=== PATIENT | female | born 1965 | race Caucasian/White ===

== ENCOUNTER 2022-03-28 08:11 | Outpatient (CLI) | payer MEDICAID, SELFPAY ==
--- NOTE | 2022-03-28 08:15 | MR_ITS ---
Final Report Patient: MINOO LOJA Facility:?[facility] Patient ID:?[id number] Site Patient ID:?[id number]. Site :?[id number] Study:?MRI Spine Lumbar W/O-03/28/2022 9:08:16 AM Ordering Physician:Bj Hernandez Final Report: INDICATION: Lumbar radiculopathy. COMPARISON: None. TECHNIQUE: Sagittal T1, T2, and STIR sequences. Axial T1 and T2 weighted sequences. FINDINGS: Normal vertebral body alignment. No fractures. No vertebral body loss of height. No spondylolisthesis. No ligamentous injury. No suspicious osseous lesions. Normal conus terminates at L1-2. T12-L1 L1-2: No spinal canal neural foraminal narrowing. L2-3: No spinal canal or neural foraminal narrowing. L3-4: Disc degeneration diffuse disc bulge. Central disc protrusion measures approximately 3 mm in short axis. Indentation of ventral thecal sac and mild narrowing of spinal canal. No neural foraminal narrowing. L4-5: Disc degeneration. Diffuse disc bulge. No narrowing of spinal canal. No neural foraminal narrowing. L5-S1: Disc degeneration loss of disc height. Posterior disc herniation measures approximately 4 mm short axis. Superimposed left subarticular disc extrusion measuring approximately 5 mm in diameter with 7 mm of cephalad migration (see series 2, image 10). At the level the interspace, mild narrowing of spinal canal. The extruded disc impinges upon the traversing portion of the left L5 nerve root. No impingement of the traversing S1 nerve roots. Mild narrowing of bilateral foramina. Mild facet arthropathy. Degenerative changes of visualized SI joints. Normal paraspinal soft tissues. IMPRESSION: 1. Normal alignment. No fractures 2. At L3-4, disc degeneration and diffuse disc bulge. Central disc protrusion. Mild narrowing of the spinal canal. No neural foraminal narrowing. 3. At L5-S1, disc degeneration. Posterior disc herniation. Left subarticular disc extrusion with cephalad migration. Mild narrowing of spinal canal. Impingement of the traversing portions of the left L5 nerve root. Mild narrowing of bilateral neural foramina Dictated by Maulik Mills MD @ 03/28/2022 12:56:50 PM (Electronic Signature)
== END 2022-03-28 08:12 | disposition home or self-care (01) ==
LOC: MRI 08:12
PROVIDERS: PCP Family Medicine; Visit Provider Physical Medicine & Rehabilitation Pain Medicine
DX: M54.16 Radiculopathy, lumbar region (principal); M51.36 Other intervertebral disc degeneration, lumbar region; M51.37 Other intervertebral disc degeneration, lumbosacral region; M51.26 Other intervertebral disc displacement, lumbar region
CPT/HCPCS: 72148

== ENCOUNTER 2022-05-07 13:59 | Emergency (ER) | payer MEDICAID, SELFPAY ==
[2022-05-07 14:11] VITALS: BP 187/91; PULSE 85; RESP 18; TEMP 36.1; O2SAT 95; BMI 29.3
--- NOTE | 2022-05-07 14:30 | ED.CHESTPAIN ---
HPI - Chest Pain General Chief Complaint: Chest Pain Stated Complaint: Chest Pain Tightness Time Seen by Provider: 05/07/22 14:00 History of Present Illness HPI narrative: This 56-year-old female comes in reporting some left anterior parasternal chest discomfort that began last evening. She states that this pain is been constant since then and has occasional jabs of brief more intense pain lasting a few seconds. She does not report any nausea, vomiting, lightheadedness, shortness of breath, or diaphoresis. She does have low back pain and had an injection for this couple weeks ago. She has not been doing any real exertional activities but does not report any exertional chest pain on the LEs. She states that this pain in her chest is not reproducible when taking a deep breath, palpating this area, or with certain movements. She does have cardiac risk factors including diabetes, hyperlipidemia, and high blood pressure. Related Data Previous Rx's Medication Instructions Recorded pen needle, diabetic 32 gauge x #100 ea 04/10/22 (UltiCare Pen Needle) sitagliptin 100 mg tablet 100 mg PO QDAY #30 tabs 04/25/22 Allergies Allergy/AdvReac Type Severity Reaction Status Date / Time Sulfa (Sulfonamide Allergy Verified 05/07/22 14:11 Antibiotics) narcotics Allergy Uncoded 05/07/22 14:11 Review of Systems Status of ROS Reports: 10 or more systems reviewed and unremarkable except as noted in History and below Narrative Constitutional: No fevers, no weight gain or loss. Eyes: No discharge. No vision changes. HENT: No congestion, no sore throat, no ear pain. Cardiovascular: No palpitations. Chest discomfort as described above. Respiratory: No shortness of breath, no wheezes, no cough. Gastrointestinal: No abdominal pain, no vomiting, no diarrhea. Genitourinary: No dysuria, no hematuria. Musculoskeletal: Normal range of motion. Skin: No rashes, no pruritis. Neurological: No dizziness, weakness, sensory change, speech change. Endo/Heme/Allergies: No bruising or bleeding. No polydipsia. Pysch: no suicidality, no anxiety, no insomnia. All other systems reviewed and are negative. Exam Narrative Exam Narrative: Constitutional: Well-developed, well-nourished, no acute distress. HEENT: Normocephalic, atraumatic. Neck: Normal range of motion. Nontender. Supple. Heart: Regular. No murmurs. Normal rate. Intact distal pulses. Lungs: Clear to auscultation. Chest discomfort along the left border of the sternum which is not reproducible with palpation or deep breathing. No wheezes, rhonchi, or rales. Abdomen: Normal bowel sounds. Nontender. No rebound tenderness. Genitalia: Deferred. Back: No midline tenderness. Normal range of motion. Extremities: Normal range of motion. No injury. Skin: Intact. No rash. Warm. No erythema or pallor. Neurologic: No altered sensation. No weakness. Alert and oriented. Psychiatric: No suicidality. No anxiety or depression. No insomnia. Nursing notes and vitals signs are reviewed. Const Vital Signs, click to edit/add: Vital Signs - 24 hr 05/07/22 14:11 Temperature 97.0 F L Pulse Rate [Left Pulse Oximeter] 85 Respiratory Rate 18 Blood Pressure [Left Upper Arm] 187/91 H Pulse Oximetry 95 Oxygen Delivery Method Room Air Course Vital Signs Vital signs: Initial Vital Signs Temperature 97.0 F L 05/07/22 14:11 Temperature Source Temporal Artery Scan 05/07/22 14:11 Pulse Rate 85 05/07/22 14:11 Respiratory Rate 18 05/07/22 14:11 Blood Pressure 187/91 H 05/07/22 14:11 Blood Pressure Mean 123 05/07/22 14:11 Blood Pressure Position Sitting 05/07/22 14:11 Pulse Oximetry 95 05/07/22 14:11 Oxygen Delivery Method 05/07/22 14:11 Vital Signs Temperature 97.0 F L 05/07/22 14:11 Pulse Rate 85 05/07/22 14:11 Respiratory Rate 18 05/07/22 14:11 Blood Pressure 187/91 H 05/07/22 14:11 Pulse Oximetry 95 05/07/22 14:11 Oxygen Delivery Method 05/07/22 14:11 Temperature 97.0 F L 05/07/22 14:11 Pulse Rate 85 05/07/22 14:11 Respiratory Rate 18 05/07/22 14:11 Blood Pressure 187/91 H 05/07/22 14:11 Pulse Oximetry 95 05/07/22 14:11 Oxygen Delivery Method 05/07/22 14:11 MDM - Chest Pain MDM Narrative Medical decision making narrative: This patient comes in reporting chest discomfort as described above. She states that the pain began yesterday and is rather constant with some episodes of brief increases of pain. EKG today shows normal sinus rhythm without any sign of ST or T-wave abnormalities. Additionally her lab results returned with normal findings. Her troponin returns at 0. This is not likely a pain that is coming from her heart or lungs. More likely it is a chest wall pain and perhaps a costal chondritis as the pain is localized along the left sternal border. Lab Data Labs: Lab Results 05/07/22 05/07/22 05/07/22 Range/Units 14:30 14:46 14:46 WBC 8.57 (4.50-11.00) K/uL RBC 5.12 (4.00-5.20) m/uL Hgb 14.5 (12.0-16.0) gm/dL Hct 43.3 (33.0-51.0) % MCV 85 (80-100) fL MCH 28 (26-34) pg MCHC 34 (32-36) gm/dL RDW Coeff of Jovani 12.7 (11.5-15.5) % Plt Count 336 (140-440) K/uL Neut % (Auto) 49.8 (42.0-72.0) % Lymph % (Auto) 39.1 (20-44) % Titus % (Auto) 6.2 (0.0-11.0) % Eos % (Auto) 4.1 (0.0-7.0) % Baso % (Auto) 0.2 (0.0-3.0) % Neut # (Auto) 4.27 (1.7-7.0) K/uL Lymph # (Auto) 3.35 H (0.90-2.90) K/uL Titus # (Auto) 0.50 (0.00-0.90) K/UL Eos # (Auto) 0.35 (0.00-0.50) K/uL Baso # (Auto) 0.02 (0.00-0.30) K/uL Abs Immat Gran (auto) 0.05 (0.00-0.30) K/uL Sodium 140 (135-149) mmol/L Potassium 4.8 (3.6-5.1) mmol/L Chloride 103 (96-114) mmol/L Carbon Dioxide 29 (20-32) mmol/L BUN 6 L (7-30) mg/dL Creatinine 0.7 (0.5-1.5) mg/dL Estimated Creat Clear 68.52 Estimated GFR 102 ml/min Glucose 149 H (60-115) mg/dL Calcium 9.4 (8.4-10.6) mg/dL POC Troponin I 0.00 L (0.01-0.04) ng/ml ECG Data Attestation: I personally reviewed and interpreted this ECG as follows: Interpretation: Normal sinus rhythm. Rate is 82 beats per minute. There are no ST or T-wave abnormalities. Discharge Plan Discharge Clinical Impression: Costalchondritis Patient Disposition: Home, Self-Care Condition: Stable Instructions: Costochondritis (ED) Additional Instructions: Use [id number]-[id number] medicines as needed and directed. Follow up with MD or return if worsening. Prescriptions: No Action (DME) pen needle, diabetic [UltiCare Pen Needle] 32 gauge x 5/32 needle See Rx Instructions .Route Qty: 100 0RF Rx Instructions: Use Daily As directed sitagliptin 100 mg tablet 100 mg PO QDAY Qty: 30 0RF Rx Instructions: Needs appt. for further refills Follow Up/Referrals: Bryce Fallon MD [Primary Care Provider] - Stand Alone Forms: [employer] Info Instructions
[2022-05-07 14:53] LABS: Basophils Absolute Auto 0.02 K/uL (0.00-0.30); Basophils Percent Auto 0.2 % (0.0-3.0); Eosinophils Absolute Auto 0.35 K/uL (0.00-0.50); Eosinophils Percent Auto 4.1 % (0.0-7.0); Hematocrit 43.3 % (33.0-51.0); Hemoglobin* 14.5 gm/dL (12.0-16.0); Immature Granulocytes Abs Auto 0.05 K/uL (0.00-0.30); Lymphocytes Absolute Auto 3.35 K/uL (0.90-2.90); Lymphocytes Percent Auto 39.1 % (20-44); Mean Corpuscular HGB Conc 34 gm/dL (32-36); Mean Corpuscular Hemoglobin 28 pg (26-34); Mean Corpuscular Volume 85 fL (80-100); Monocytes Percent Auto 6.2 % (0.0-11.0); Neutrophils Absolute Auto 4.27 K/uL (1.7-7.0); Neutrophils Percent Auto 49.8 % (42.0-72.0); Platelet Count* 336 K/uL (140-440); RDW Coefficient of Variation % 12.7 % (11.5-15.5); Red Blood Count 5.12 m/uL (4.00-5.20); White Blood Count* 8.57 K/uL (4.50-11.00)
[2022-05-07 14:54] LABS: Slide Review Reflex No
[2022-05-07 15:09] LABS: Chloride* 103 mmol/L (96-114); Potassium* 4.8 mmol/L (3.6-5.1); Sodium* 140 mmol/L (135-149)
[2022-05-07 15:12] LABS: Blood Urea Nitrogen* 6 mg/dL (7-30); Calcium* 9.4 mg/dL (8.4-10.6); Carbon Dioxide* 29 mmol/L (20-32); Creatinine* 0.7 mg/dL (0.5-1.5); Est. Creatinine Clearance* 68.52; Estimated Glomerular Filt Rate 102 ml/min; Glucose* 149 mg/dL (60-115)
[2022-05-07 15:45] VITALS: BP 171/92; PULSE 79; RESP 18; O2SAT 94
== END 2022-05-07 15:45 | disposition home or self-care (01) ==
PROVIDERS: Emergency Provider Emergency Medicine Emergency Medical Services; PCP Family Medicine
DX: M94.0 Chondrocostal junction syndrome [Tietze] (principal)
CPT/HCPCS: 36415; 80048; 84484; 85025; 93005; 99284

== ENCOUNTER 2022-06-13 08:41 | Outpatient (CLI) | payer MEDICAID, SELFPAY ==
[2022-06-13 15:31] LABS: Cholesterol* 178 mg/dL (90-199)
[2022-06-13 15:32] LABS: HDL Cholesterol* 46 mg/dL (>=50); LDL Cholesterol Calculated 85 mg/dL (<100); Triglycerides* 234 mg/dL (40-149)
== END 2022-06-13 08:42 | disposition home or self-care (01) ==
LOC: FBOREF 08:42
PROVIDERS: PCP Family Medicine; Visit Provider Family Medicine
DX: E78.5 Hyperlipidemia, unspecified (principal)
CPT/HCPCS: 80061

== ENCOUNTER 2022-07-17 08:15 | Outpatient (RCR) | payer MEDICAID, SELFPAY | END 2022-07-17 12:03 | disposition home or self-care (01) | PROVIDERS: PCP Family Medicine; Visit Provider Physical Medicine & Rehabilitation Pain Medicine | DX: M54.50 Low back pain, unspecified (principal); Z51.89 Encounter for other specified aftercare | CPT/HCPCS: 97110; 97140; 97162 ==

== ENCOUNTER 2022-07-21 14:12 | Outpatient (CLI) | payer MEDICAID, SELFPAY ==
--- NOTE | 2022-07-21 14:30 | CRLHL7_ITS ---
For Patients: As a result of the Century Cures Act, medical imaging exams and procedure reports are released immediately into your electronic medical record. You may view this report before your referring provider. If you have questions, please contact your health care provider. INDICATION: Right facial numbness. Migraine headaches. TECHNIQUE: Multiplanar multisequence noncontrast MR images acquired through the brain. COMPARISON: None. FINDINGS: The ventricles and sulci are within normal limits for patient age. No mass effect or midline shift. Scattered and patchy T2 FLAIR hyperintensities in the supratentorial white matter and dawson, most typical for sequelae of care-ie-bbsnlnhs chronic microvascular ischemic changes. No intracranial hemorrhage or pathologic extra-axial fluid collection. No diffusion restriction to suggest acute infarction. The major arterial flow voids of the skullbase are preserved. The globes are symmetric. Very small right maxillary sinus retention cyst or polyp. Severe opacification of the left sphenoid sinus. Trace right mastoid fluid. IMPRESSION: 1. No acute infarction, mass effect, or intracranial hemorrhage. 2. Pjnf-zk-fgajuqxi chronic microvascular ischemic changes, greater than expected for patient age. 3. Severe opacification of the left sphenoid sinus. Dictated by Angel Adams MD @ 07/21/2022 5:49:24 PM (Electronically Signed)
== END 2022-07-21 14:13 | disposition home or self-care (01) ==
PROVIDERS: PCP Family Medicine; Visit Provider Physician Assistant Medical
DX: G43.909 Migraine, unspecified, not intractable, without status migrainosus (principal); I67.82 Cerebral ischemia; J32.3 Chronic sphenoidal sinusitis; R20.0 Anesthesia of skin
CPT/HCPCS: 70551

== ENCOUNTER 2022-09-07 08:29 | Outpatient (CLI) | payer MEDICAID, SELFPAY ==
--- NOTE | 2022-09-07 08:45 | CRLHL7_ITS ---
For Patients: As a result of the Century Cures Act, medical imaging exams and procedure reports are released immediately into your electronic medical record. You may view this report before your referring provider. If you have questions, please contact your health care provider. BILATERAL SCREENING MAMMOGRAM WITH COMPUTER-AIDED DETECTION AND TOMOSYNTHESIS TECHNIQUE: CC and MLO views were obtained. These mammographic images have been obtained using full-field digital technique. These mammographic images were interpreted with the benefit of computer-aided detection. Breast Tomosynthesis was used in this interpretation. COMPARISON FILM: 04/09/17, 05/26/16, 03/04/13. FINDINGS: There are scattered areas of fibroglandular density IMPRESSION: There is no radiographic evidence for malignancy. ASSESSMENT: BI-RADS Category 1: Negative RECOMMENDATION: Routine screening mammogram in 1 year. A lay language report of this examination will be provided to the patient. Bryce Waggoner M.D. Diagnostic Radiologist [email or web address] VEENA/amelia be/Dictated by: Bryce Waggoner MD @ 09/07/2022 10:15:00 AM (Electronically Signed)
== END 2022-09-07 08:30 | disposition home or self-care (01) ==
PROVIDERS: PCP Family Medicine; Visit Provider Family Medicine
DX: Z12.31 Encounter for screening mammogram for malignant neoplasm of breast (principal)
CPT/HCPCS: 77063; 77067

== ENCOUNTER 2023-01-31 13:54 | Emergency (ER) | payer MEDICAID, SELFPAY ==
[2023-01-31 14:03] VITALS: BP 181/106; PULSE 108; RESP 18; TEMP 36.4; O2SAT 98; BMI 28.5
--- NOTE | 2023-01-31 15:02 | CRLHL7_ITS ---
For Patients: As a result of the Century Cures Act, medical imaging exams and procedure reports are released immediately into your electronic medical record. You may view this report before your referring provider. If you have questions, please contact your health care provider. INDICATION: Chest pain. TECHNIQUE: Chest 2 views. COMPARISON: Chest radiograph 12/26/2017. FINDINGS: No focal consolidation, pleural effusion, or pneumothorax. Normal heart size and pulmonary vascularity. The bones are unremarkable. IMPRESSION: No acute cardiopulmonary findings. Dictated by Lucita Willis MD @ 01/31/2023 4:04:48 PM (Electronically Signed)
--- NOTE | 2023-01-31 15:08 | ED_ITS ---
HPI - General Adult General Chief complaint: Back Injury/Pain Stated complaint: Chest Pain Time Seen by Provider: 01/31/23 13:56 History of Present Illness HPI narrative: This 57-year-old female comes in reporting pain in the lower chest and upper abdomen that began this morning. She states that it is minimal while at rest but it becomes very intense with certain movements, deep breath, or pressing along these areas. She states that the pain seems to radiate around the area of her bra strap around to her back. She does not report any nausea, vomiting, lightheadedness, shortness of breath, or diaphoresis. She does not report any recent injury event or strenuous activity. Clear to the pain is reproducible. Related Data Home Medications Medication Instructions Recorded Confirmed aspirin 81 mg tablet,delayed 81 mg PO QDAY 05/08/22 01/12/23 release fluticasone propionate 50 1 spray intranasal QDAY 05/08/22 01/12/23 mcg/actuation nasal spray,suspension (Flonase Allergy Relief) Previous Rx's Medication Instructions Recorded atorvastatin 10 mg tablet 10 mg PO QDAY #90 tabs 06/13/22 bupropion HCl 300 mg 24 hr tablet, 300 mg PO QAM #90 tabs 06/13/22 extended release metformin 500 mg tablet,extended 1,000 mg (2 x 500 mg) PO BID #360 06/13/22 release 24 hr tabs sitagliptin phosphate 100 mg tablet 100 mg PO QDAY #90 tabs 06/13/22 pen needle, diabetic 32 gauge x #100 ea 08/24/22 5/32 (UltiCare Pen Needle) gabapentin 300 mg capsule 300 mg PO BID #180 caps 09/19/22 duloxetine 60 mg capsule,delayed 60 mg PO QDAY #90 caps 01/12/23 release insulin detemir U-100 100 unit/mL 35 unit (0.35 mL) subcut QHS #15 mL 01/12/23 (3 mL) subcutaneous pen (Levemir FlexPen) lorazepam 1 mg tablet 1 mg PO BID PRN anxiety #30 tabs 01/12/23 cyclobenzaprine 10 mg tablet 10 mg PO TID #15 tabs 01/31/23 ketorolac 10 mg tablet 10 mg PO Q8H 5 days #15 tabs 01/31/23 methylprednisolone 4 mg tablets in See Rx Instructions PO .COMPLEX 01/31/23 a dose pack (Medrol (Dwayne)) #21 ea Allergies Allergy/AdvReac Type Severity Reaction Status Date / Time codeine Allergy Intermediate Itchy, Verified 01/12/23 09:37 diaphoretic hydromorphone Allergy Intermediate Vomiting Verified 01/12/23 09:37 and itching oxycodone Allergy Intermediate Itchy, Verified 01/12/23 09:37 diaphoretic hydrocodone Allergy Unknown Itchiness Verified 01/12/23 09:37 meclizine Allergy Unknown Verified 01/12/23 09:37 morphine Allergy Unknown Itchy, Verified 01/12/23 09:37 diaphoretic Sulfa (Sulfonamide Allergy Verified 01/12/23 09:37 Antibiotics) narcotics Allergy Uncoded 01/12/23 09:37 Review of Systems Status of ROS: Reports: 10 or more systems reviewed and unremarkable except as noted in History and below Narrative: Constitutional: No fevers, no weight gain or loss. Eyes: No discharge. No vision changes. HENT: No congestion, no sore throat, no ear pain. Cardiovascular: No palpitations. Respiratory: No shortness of breath, no wheezes, no cough. Gastrointestinal: Upper epigastric abdominal pain, no vomiting, no diarrhea. Genitourinary: No dysuria, no hematuria. Musculoskeletal: Normal range of motion. Skin: No rashes, no pruritis. Neurological: No dizziness, weakness, sensory change, speech change. Endo/Heme/Allergies: No bruising or bleeding. No polydipsia. Pysch: no suicidality, no anxiety, no insomnia. All other systems reviewed and are negative. [facility] Medical History (Updated 01/31/23 @ 16:35 by Joey England MD) HTN (hypertension) ?I10 - Essential (primary) hypertension (ICD-10) Anxiety and depression ?F41.9 - Anxiety disorder, unspecified (ICD-10) ?F32.A - Depression, unspecified (ICD-10) Vitamin D deficiency ?E55.9 - Vitamin D deficiency, unspecified (ICD-10) Postmenopausal atrophic vaginitis ?N95.2 - Postmenopausal atrophic vaginitis (ICD-10) Meniere's disease ?H81.09 - Meniere's disease, unspecified ear (ICD-10) Hyperlipidemia ?E78.5 - Hyperlipidemia, unspecified (ICD-10) 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 (11/23/12) ?M51.26 - Other intervertebral disc displacement, lumbar region (ICD-10) Diabetic neuropathy ?E11.40 - Type 2 diabetes mellitus with diabetic neuropathy, unspecified (ICD-10) Clostridioides difficile diarrhea ?A04.72 - Enterocolitis due to Clostridium difficile, not specified as recurrent (ICD-10) Amaurosis fugax of right eye ?G45.3 - Amaurosis fugax (ICD-10) Adenomatous polyp of colon ?D12.6 - Benign neoplasm of colon, unspecified (ICD-10) Type 2 diabetes mellitus ?E11.9 - Type 2 diabetes mellitus without complications (ICD-10) Surgical History (Updated 07/25/22 @ 21:58 by Bryce Fallon MD) History of total hysterectomy with bilateral salpingo-oophorectomy (BSO) (2011) ?Z90.710 - Acquired absence of both cervix and uterus (ICD-10) ?Z90.722 - Acquired absence of ovaries, bilateral (ICD-10) ?Z90.79 - Acquired absence of other genital organ(s) (ICD-10) History of total abdominal hysterectomy and bilateral salpingo-oophorectomy ?Z90.710 - Acquired absence of both cervix and uterus (ICD-10) ?Z90.722 - Acquired absence of ovaries, bilateral (ICD-10) ?Z90.79 - Acquired absence of other genital organ(s) (ICD-10) History of third molar tooth extraction ?K08.409 - Partial loss of teeth, unspecified cause, unspecified class (ICD- 10) History of bilateral breast reduction surgery ?Z98.890 - Other specified postprocedural states (ICD-10) Family History (Updated 05/15/22 @ 12:46 by Tanesha Sanders) Sister Breast cancer, Onset Age: 66 Depression Multiple myeloma Family history of stroke or transient ischemic attack in sister Mother Depression Alcoholism Oral cancer Father Alcoholism Multiple myeloma Brother Colon cancer, Onset Age: 48 Melanoma Other Maternal family history of seizure disorder Social History (Updated 05/15/22 @ 12:46 by Tanesha aSnders) Narrative: Exercise involving walking- 11,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 , 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 HEENT: Normocephalic, atraumatic. Neck: Normal range of motion. Nontender. Supple. Heart: Regular. No murmurs. Normal rate. Intact distal pulses. Chest: Patient manifests distinct pain when palpating along the lower ribs bilaterally. Lungs: Clear to auscultation. No chest discomfort. No wheezes, rhonchi, or rales. Abdomen: Normal bowel sounds. Nontender. No rebound tenderness. Genitalia: Deferred. Back: No midline tenderness. Normal range of motion. Extremities: Normal range of motion. No injury. Skin: Intact. No rash. Warm. No erythema or pallor. Neurologic: No altered sensation. No weakness. Alert and oriented. Psychiatric: No suicidality. No anxiety or depression. No insomnia. Nursing notes and vitals signs are reviewed. Const: Vital Signs, click to edit/add: Vital Signs - 24 hr 01/31/23 14:03 01/31/23 15:14 Temperature 97.6 F Pulse Rate [Pulse Oximeter] 108 H 105 H Respiratory Rate 18 16 Blood Pressure [Ri ght Upper Arm] 181/106 H 165/100 H Pulse Oximetry 98 96 Oxygen Delivery Me thod Room Air Room Air Course Vital Signs Vital signs: Initial Vital Signs Temperature 97.6 F 01/31/23 14:03 Temperature Source Temporal Artery Scan 01/31/23 14:03 Pulse Rate 108 H 01/31/23 14:03 Respiratory Rate 18 01/31/23 14:03 Blood Pressure 181/106 H 01/31/23 14:03 Blood Pressure Mean 131 H 01/31/23 14:03 Pulse Oximetry 98 01/31/23 14:03 Oxygen Delivery Method Room Air 01/31/23 14:03 Vital Signs Temperature 97.6 F 01/31/23 14:03 Pulse Rate 108 H 01/31/23 14:03 Respiratory Rate 18 01/31/23 14:03 Blood Pressure 181/106 H 01/31/23 14:03 Pulse Oximetry 98 01/31/23 14:03 Oxygen Delivery Method Room Air 01/31/23 14:03 Temperature 97.6 F 01/31/23 14:03 Pulse Rate 105 H 01/31/23 15:14 Respiratory Rate 16 01/31/23 15:14 Blood Pressure 165/100 H 01/31/23 15:14 Pulse Oximetry 96 01/31/23 15:14 Oxygen Delivery Method Room Air 01/31/23 15:14 Medical Decision Making MDM Narrative Medical decision making narrative: This patient comes in with pain in the upper abdomen and lower chest extending around to the back. This pain is easily reproducible with certain movements, deep breaths, or palpating in this area. The back pain is always involved with her discomfort in her lower chest and upper abdomen. Chest x-ray shows no acute findings. Lab results also are reassuring. I did use bedside ultrasound also to evaluate her gallbladder and aorta. The quality of the images were rather poor but what was visualized appeared normal. This patient's symptoms are reproducible in suggesting musculoskeletal or a nerve impingement etiology. She is okay to be discharged home. She did received prescriptions for Toradol, Flexeril, and Medrol Dosepak. She understands that the steroid will cause her blood glucose to elevate temporarily. Lab Data Labs: Lab Results 01/31/23 Range/Units 15:19 WBC 10.35 (4.50-11.00) K/uL RBC 4.75 (4.00-5.20) m/uL Hgb 13.4 (12.0-16.0) gm/dL Hct 40.6 (33.0-51.0) % MCV 86 (80-100) fL MCH 28 (26-34) pg MCHC 33 (32-36) gm/dL RDW Coeff of Jovani 12.8 (11.5-15.5) % Plt Count 338 (140-440) K/uL Neut % (Auto) 45.9 (42.0-72.0) % Lymph % (Auto) 42.9 (20-44) % Bond % (Auto) 6.5 (0.0-11.0) % Eos % (Auto) 4.3 (0.0-7.0) % Baso % (Auto) 0.3 (0.0-3.0) % Neut # (Auto) 4.75 (1.7-7.0) K/uL Lymph # (Auto) 4.44 H (0.90-2.90) K/uL Bond # (Auto) 0.70 (0.00-0.90) K/UL Eos # (Auto) 0.45 (0.00-0.50) K/uL Baso # (Auto) 0.03 (0.00-0.30) K/uL Sodium 138 (135-149) mmol/L Potassium 4.3 (3.6-5.1) mmol/L Chloride 99 (96-114) mmol/L Carbon Dioxide 30 (20-32) mmol/L BUN 11 (7-30) mg/dL Creatinine 0.8 (0.5-1.5) mg/dL Estimated Creat Clear 59.25 Estimated GFR 86 ml/min Glucose 176 H (60-115) mg/dL Calcium 9.6 (8.4-10.6) mg/dL POC Troponin I 0.00 L (0.01-0.04) ng/ml Imaging Data Chest x-ray: Radiologist's impression: No acute cardiopulmonary findings. ECG Data Attestation: I personally reviewed and interpreted this ECG as follows: Interpretation: Normal sinus rhythm. Rate is 102 beats per minute. There are no ST or T-wave abnormalities. Discharge Plan Discharge Clinical Impression: Acute chest wall pain, Back pain Patient Disposition: Home, Self-Care Condition: Unchanged Additional Instructions: Take medication as needed and indicated. Increase activity as tolerated. Follow up with MD return if worsening. Prescriptions: New cyclobenzaprine 10 mg tablet 10 mg PO TID Qty: 15 0RF ketorolac 10 mg tablet 10 mg PO Q8H 5 Days Qty: 15 0RF methylprednisolone [Medrol (Dwayne)] 4 mg tablets,dose pack See Rx Instructions .ROUTE .COMPLEX Qty: 21 0RF Rx Instructions: orally per package directions No Action atorvastatin 10 mg tablet 10 mg PO QDAY Qty: 90 3RF Rx Instructions: Fill when needed bupropion HCl 300 mg tablet extended release 24 hr 300 mg PO QAM Qty: 90 3RF Rx Instructions: Fill when needed sitagliptin phosphate 100 mg tablet 100 mg PO QDAY Qty: 90 3RF Rx Instructions: Fill when needed metformin 500 mg tablet extended release 24 hr 1,000 mg PO BID Qty: 360 3RF Rx Instructions: Fill when needed lorazepam 1 mg tablet 1 mg PO BID PRN (Reason: anxiety) Qty: 30 0RF duloxetine 60 mg capsule,delayed release(DR/EC) 60 mg PO QDAY Qty: 90 1RF Levemir FlexPen 100 unit/mL (3 mL) insulin pen 35 unit subcut QHS Qty: 15 1RF aspirin 81 mg tablet,delayed release (DR/EC) 81 mg PO QDAY fluticasone propionate [Flonase Allergy Relief] 50 mcg/actuation spray,suspension 1 spray intranasal QDAY Rx Instructions: administer into each nostril (DME) pen needle, diabetic [UltiCare Pen Needle] 32 gauge x 5/32 needle See Rx Instructions .Route Qty: 100 5RF Rx Instructions: Use Daily As directed gabapentin 300 mg capsule 300 mg PO BID Qty: 180 2RF Follow Up/Referrals: Bryce Fallon MD [Primary Care Provider] - Stand Alone Forms: [facility] Info Instructions Procedures Ultrasound Biliary exam #1: Anatomical areas examined: gallbladder, long and short axis Indications: RUQ/epigastric pain Exam type: limited abdominal ultrasound; RUQ Description/Findings: Poorly visualized Gall bladder. What it seen appears normal. Normal aorta - no aneurysm.
[2023-01-31 15:14] VITALS: BP 165/100; PULSE 105; RESP 16; O2SAT 96
[2023-01-31 15:29] LABS: Basophils Absolute Auto 0.03 K/uL (0.00-0.30); Basophils Percent Auto 0.3 % (0.0-3.0); Eosinophils Absolute Auto 0.45 K/uL (0.00-0.50); Eosinophils Percent Auto 4.3 % (0.0-7.0); Hematocrit 40.6 % (33.0-51.0); Hemoglobin* 13.4 gm/dL (12.0-16.0); Immature Granulocytes Abs Auto 0.01 K/uL (0.00-0.30); Immature Granulocytes Pct Auto 0.1 %; Lymphocytes Absolute Auto 4.44 K/uL (0.90-2.90); Lymphocytes Percent Auto 42.9 % (20-44); Mean Corpuscular HGB Conc 33 gm/dL (32-36); Mean Corpuscular Hemoglobin 28 pg (26-34); Mean Corpuscular Volume 86 fL (80-100); Monocytes Percent Auto 6.5 % (0.0-11.0); Neutrophils Absolute Auto 4.75 K/uL (1.7-7.0); Neutrophils Percent Auto 45.9 % (42.0-72.0); Platelet Count* 338 K/uL (140-440); RDW Coefficient of Variation % 12.8 % (11.5-15.5); Red Blood Count 4.75 m/uL (4.00-5.20); White Blood Count* 10.35 K/uL (4.50-11.00)
[2023-01-31 15:43] LABS: Chloride* 99 mmol/L (96-114); Potassium* 4.3 mmol/L (3.6-5.1); Sodium* 138 mmol/L (135-149)
[2023-01-31 15:46] LABS: Blood Urea Nitrogen* 11 mg/dL (7-30); Carbon Dioxide* 30 mmol/L (20-32); Creatinine* 0.8 mg/dL (0.5-1.5); Est. Creatinine Clearance* 59.25; Estimated Glomerular Filt Rate 86 ml/min; Glucose* 176 mg/dL (60-115)
[2023-01-31 15:47] LABS: Calcium* 9.6 mg/dL (8.4-10.6); Slide Review Reflex No
[2023-01-31] MEDS: KETOROLAC 10 MG TABLET PO (16:37)
== END 2023-01-31 16:45 | disposition home or self-care (01) ==
PROVIDERS: Emergency Provider Emergency Medicine Emergency Medical Services; PCP Family Medicine
DX: R07.89 Other chest pain (principal); M54.9 Dorsalgia, unspecified
CPT/HCPCS: 36415; 71046; 80048; 84484; 85025; 93005; 99284; 99285; A9270

== ENCOUNTER 2023-02-08 14:45 | Emergency (ER) | payer MEDICAID, SELFPAY ==
[2023-02-08] VITALS (21 sets, daily range): BP systolic 146–172; BP diastolic 83–96; PULSE 98–120; RESP 16–20; TEMP 36.1; O2SAT 94–98; BMI 28.3
--- NOTE | 2023-02-08 16:14 | ED.CHESTPAIN ---
HPI - Chest Pain General Time Seen by Provider: 16:14 Date Seen: 02/08/23 Chief Complaint: Chest Pain Stated Complaint: Chest/back pain, dizzy Time Seen by Provider: 02/08/23 16:14 Source: patient, RN notes reviewed and old records reviewed Mode of arrival: ambulatory Limitations: no limitations History of Present Illness HPI narrative: Janet is a very pleasant 57-year-old female with history of type 2 diabetes, hyperlipidemia who notes ongoing chest abdomen and back pain for approximately 2 weeks. Patient notes that she has had intermittent chest and back pain since having COVID the 2nd week of November. However proximally 2 weeks ago this become much more severe. She describes the pain substernal that will radiate to her back and down into her left upper quadrant. She notes that it is been fairly persistent and had been lessening but suddenly increased today. She was reminded that she was supposed to follow-up with Dr. Fallon but his clinic center back to the emergency room. She notes that she has a lot of pressure between her shoulder blades in this is definitely worsened with movement. She denies any fever or chills or nausea at this time. She does get occasional shortness of breath and it does not seem to be strictly related to activity. She notes no unusual cough she does note lower extremity leg pain but she is showing me that this is actually the front of her shins. She denies any calf tenderness or history of DVT. She notes that she thought this was neuropathy and it has been present since she had COVID in November. Patient did see Dr. England 1 week ago and at that time chest x-ray was reassuring. She was placed on tramadol and Flexeril. She notes that she has been constipated from those medications. Patient does have a history of autoimmune illness in family with mom and 2 sisters with a history of rheumatoid arthritis. Patient also notes new diagnosis of gout for herself after having a swollen painful finger a few months ago. Related Data Home Medications Medication Instructions Recorded Confirmed aspirin 81 mg tablet,delayed 81 mg PO QDAY 05/08/22 02/08/23 release fluticasone propionate 50 1 spray intranasal QDAY 05/08/22 02/08/23 mcg/actuation nasal spray,suspension (Flonase Allergy Relief) Previous Rx's Medication Instructions Recorded atorvastatin 10 mg tablet 10 mg PO QDAY #90 tabs 06/13/22 bupropion HCl 300 mg 24 hr tablet, 300 mg PO QAM #90 tabs 06/13/22 extended release metformin 500 mg tablet,extended 1,000 mg (2 x 500 mg) PO BID #360 06/13/22 release 24 hr tabs sitagliptin phosphate 100 mg tablet 100 mg PO QDAY #90 tabs 06/13/22 pen needle, diabetic 32 gauge x #100 ea 08/24/22 (UltiCare Pen Needle) gabapentin 300 mg capsule 300 mg PO BID #180 caps 09/19/22 duloxetine 60 mg capsule,delayed 60 mg PO QDAY #90 caps 01/12/23 release insulin detemir U-100 100 unit/mL 35 unit (0.35 mL) subcut QHS #15 mL 01/12/23 (3 mL) subcutaneous pen (Levemir FlexPen) lorazepam 1 mg tablet 1 mg PO BID PRN anxiety #30 tabs 01/12/23 cyclobenzaprine 10 mg tablet 10 mg PO TID #15 tabs 01/31/23 ketorolac 10 mg tablet 10 mg PO Q8H 5 days #15 tabs 01/31/23 Allergies Allergy/AdvReac Type Severity Reaction Status Date / Time codeine Allergy Intermediate Itchy, Verified 02/08/23 15:08 diaphoretic hydromorphone Allergy Intermediate Vomiting Verified 02/08/23 15:08 and itching oxycodone Allergy Intermediate Itchy, Verified 02/08/23 15:08 diaphoretic hydrocodone Allergy Unknown Itchiness Verified 02/08/23 15:08 meclizine Allergy Unknown Verified 02/08/23 15:08 morphine Allergy Unknown Itchy, Verified 02/08/23 15:08 diaphoretic Sulfa (Sulfonamide Allergy Verified 02/08/23 15:08 Antibiotics) narcotics Allergy Uncoded 01/12/23 09:37 Review of Systems Status of ROS Reports: 10 or more systems reviewed and unremarkable except as noted in History and below Const Denies: fever or chills Eyes Denies: change in vision ENMT Denies: throat pain, neck pain or difficulty swallowing (Eating and drinking without difficulty) Cardio Reports: chest pain and shortness of breath with exertion (Random episodes); Denies: palpitations, swelling of feet/ankles or lightheadedness Resp Reports: shortness of breath (Random episodes); Denies: cough GI Reports: abdominal pain and constipation; Denies: nausea, vomiting, diarrhea or difficulty swallowing (Eating and drinking without difficulty) Denies: painful urination or urinary frequency Musculo Reports: back pain and extremity pain; Denies: neck pain or extremity swelling Integ/Breast Denies: rash or itching Neuro Denies: headache, numbness in extremities or weakness in extremities Psych Reports: anxiety PFSH PFSH Medical History (Updated 02/08/23 @ 21:11 by Ladonna Villarreal MD) Type 2 diabetes mellitus, with long-term current use of insulin ?E11.9 - Type 2 diabetes mellitus without complications (ICD-10) ?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 (ICD-10) Mixed hyperlipidemia ?E78.2 - Mixed hyperlipidemia (ICD-10) Primary hypertension ?I10 - Essential (primary) hypertension (ICD-10) Anxiety and depression ?F41.9 - Anxiety disorder, unspecified (ICD-10) ?F32.A - Depression, unspecified (ICD-10) Vitamin D deficiency ?E55.9 - Vitamin D deficiency, unspecified (ICD-10) Postmenopausal atrophic vaginitis ?N95.2 - Postmenopausal atrophic vaginitis (ICD-10) Meniere's disease ?H81.09 - Meniere's disease, unspecified ear (ICD-10) 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 (11/23/12) ?M51.26 - Other intervertebral disc displacement, lumbar region (ICD-10) Diabetic neuropathy ?E11.40 - Type 2 diabetes mellitus with diabetic neuropathy, unspecified (ICD-10) Clostridioides difficile diarrhea ?A04.72 - Enterocolitis due to Clostridium difficile, not specified as recurrent (ICD-10) Amaurosis fugax of right eye ?G45.3 - Amaurosis fugax (ICD-10) Adenomatous polyp of colon ?D12.6 - Benign neoplasm of colon, unspecified (ICD-10) Surgical History (Updated 02/04/23 @ 11:52 by Bryce Fallon MD) History of total hysterectomy with bilateral salpingo-oophorectomy (BSO) (2011) ?Z90.710 - Acquired absence of both cervix and uterus (ICD-10) ?Z90.722 - Acquired absence of ovaries, bilateral (ICD-10) ?Z90.79 - Acquired absence of other genital organ(s) (ICD-10) History of third molar tooth extraction ?K08.409 - Partial loss of teeth, unspecified cause, unspecified class (ICD-10) History of bilateral breast reduction surgery ?Z98.890 - Other specified postprocedural states (ICD-10) Family History (Updated 05/15/22 @ 12:46 by Tanesha Sanders) Sister Breast cancer, Onset Age: 66 Depression Multiple myeloma Family history of stroke or transient ischemic attack in sister Mother Depression Alcoholism Oral cancer Father Alcoholism Multiple myeloma Brother Colon cancer, Onset Age: 48 Melanoma Other Maternal family history of seizure disorder Social History (Updated 05/15/22 @ 12:46 by Tanesha Sanders) Narrative: Exercise involving walking- 11,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 This does not appear to be in any acute distress but while she is here she suddenly notes that she has increasing right lower sided back pain. Her EOM is full pupils are equal round reactive. His neck is supple. Speech is normal. Heart with a mildly tachycardic rate in the 100s for me. This is regular however. Lungs are clear in all lung eli. Abdomen is soft no significant tenderness. I cannot recreate discomfort as I palpate over her sternum anterior chest. She has no pain with palpation down thoracic or lumbar spine. No CVA tenderness with percussion. She is moving all of her extremities. Patient has no calf tenderness with palpation or with dorsiflexion. Mild pain over the upper anterior shins. Const Vital Signs, click to edit/add: Vital Signs - 24 hr 02/08/23 15:01 02/08/23 16:30 02/08/23 17:35 Temperature 96.9 F L Pulse Rate Pulse Rate [Left Pulse Oximeter] 120 H 111 H 120 H Respiratory Rate 16 16 16 Blood Pressure Blood Pressure [Right Upper Arm] 149/90 H 146/91 H 151/83 H Pulse Oximetry 97 96 96 Oxygen Delivery Method Room Air 02/08/23 18:00 02/08/23 18:30 02/08/23 19:00 Temperature Pulse Rate Pulse Rate [Left Pulse Oximeter] 111 H 112 H 113 H Respiratory Rate 16 16 16 Blood Pressure Blood Pressure [Right Upper Arm] 151/88 H 149/96 H 153/89 H Pulse Oximetry 96 95 95 Oxygen Delivery Method 02/08/23 19:30 02/08/23 19:35 02/08/23 19:36 Temperature Pulse Rate 105 H 107 H Pulse Rate [Left Pulse Oximeter] 109 H Respiratory Rate 16 Blood Pressure 161/92 H Blood Pressure [Right Upper Arm] 161/92 H Pulse Oximetry 96 96 95 Oxygen Delivery Method 02/08/23 19:45 02/08/23 20:00 02/08/23 20:01 Temperature Pulse Rate 108 H 117 H 116 H Pulse Rate [Left Pulse Oximeter] Respiratory Rate Blood Pressure 172/86 H Blood Pressure [Right Upper Arm] Pulse Oximetry 97 95 97 Oxygen Delivery Method 02/08/23 20:02 02/08/23 20:15 02/08/23 20:30 Temperature Pulse Rate 116 H 111 H 107 H Pulse Rate [Left Pulse Oximeter] Respiratory Rate Blood Pressure Blood Pressure [Right Upper Arm] Pulse Oximetry 96 94 94 Oxygen Delivery Method 02/08/23 20:31 02/08/23 20:45 02/08/23 21:00 Temperature Pulse Rate 107 H 103 H 102 H Pulse Rate [Left Pulse Oximeter] Respiratory Rate Blood Pressure 162/85 H Blood Pressure [Right Upper Arm] Pulse Oximetry 94 94 96 Oxygen Delivery Method 02/08/23 21:01 02/08/23 21:15 02/08/23 21:25 Temperature 97 F L Pulse Rate 104 H 102 H 98 Pulse Rate [Left Pulse Oximeter] Respiratory Rate 20 Blood Pressure 159/89 H 152/89 H Blood Pressure [Right Upper Arm] Pulse Oximetry 96 95 98 Oxygen Delivery Method Documenting provider has reviewed patient's vital signs: yes Course Course Hospital Course: Differential diagnosis includes but is not limited to musculoskeletal pain, PE, aortic dissection, acute coronary event, biliary colic. At this time will order PE study of the chest with abdominal CT with contrast. Will also recommend a troponin, EKG, cardiac catheterization technician, IV placement, CBC, comprehensive, urinalysis. Reevaluation(s) Reevaluation #1: Patient noted to have persisting discomfort. Is tachycardic in the [address] returns with no abnormality except for thyroid nodule. Will add TSH to patient workup. Will try Toradol 15 mg IV and a GI cocktail at this time as patient does describe some acid in her mouth earlier today. Reevaluation #2: Patient felt that the GI cocktail made her worse. She says she could feel it go through her stomach and into her intestines. She does not think the Toradol helped. With fluids her heart rate is much improved and is now 100 or below. Will treat her with omeprazole 40 mg p.o. at this time. Vital Signs Vital signs: Initial Vital Signs Respiratory Effort Normal 02/08/23 15:00 Respiratory Depth Normal 02/08/23 15:00 Respiratory Pattern Normal 02/08/23 15:00 Vital Signs Temperature 96.9 F L 02/08/23 15:01 Pulse Rate 120 H 02/08/23 15:01 Respiratory Rate 16 02/08/23 15:01 Blood Pressure 149/90 H 02/08/23 15:01 Pulse Oximetry 97 02/08/23 15:01 Oxygen Delivery Method Room Air 02/08/23 15:01 Temperature 97 F L 02/08/23 21:25 Pulse Rate 98 02/08/23 21:25 Respiratory Rate 20 02/08/23 21:25 Blood Pressure 152/89 H 02/08/23 21:25 Pulse Oximetry 98 02/08/23 21:25 Oxygen Delivery Method Room Air 02/08/23 15:01 MDM - Chest Pain MDM Narrative Medical decision making narrative: 1. Atypical chest pain-2 sets of cardiac enzymes are negative and EKG is reassuring. White count slightly elevated but no evidence of infection. Patient is 2 months post COVID with symptoms of that time body aches kidney pain and congestion. Patient initially tachycardic but now below 100 with 1 L of normal saline. I suspect that her discomfort is likely GI in nature although CT did not show any abnormalities. She does describe some acid taste type into her mouth today. She actually felt worse after GI cocktail and described how she could feel it going through her system and small intestine. This may be GERD and so will treat with omeprazole this evening and for the next [address] of the chest and abdomen did not show any acute abnormalities. Patient notes that tramadol did help her and I will give her another few tablets of this medication 50 mg p.o. Q 8 hours p.r.n. 15. Via [facility] meds. She will need to follow up with her primary MD for any further pain medications. 2. Thyroid nodule-patient is informed of this. TSH is normal. Will need to follow-up for outpatient ultrasound to be scheduled. 2. Disposition-home at this time. No evidence of PE, acute coronary syndrome, aortic dissection, bowel obstruction on CT. Follow-up with primary MD for further management. Return to the emergency room for worsening symptoms. Medical Records Data Attestation: I reviewed the patient's medical records. Lab Data Attestation: I reviewed the patient's lab results. Labs: Lab Results 02/08/23 02/08/23 02/08/23 Range/Units 16:45 17:01 19:20 WBC 11.51 H (4.50-11.00) K/uL RBC 5.02 (4.00-5.20) m/uL Hgb 14.1 (12.0-16.0) gm/dL Hct 42.6 (33.0-51.0) % MCV 85 (80-100) fL MCH 28 (26-34) pg MCHC 33 (32-36) gm/dL RDW Coeff of Jovani 12.7 (11.5-15.5) % Plt Count 329 (140-440) K/uL Neut % (Auto) 49.5 (42.0-72.0) % Lymph % (Auto) 40.1 (20-44) % [place] % (Auto) 6.6 (0.0-11.0) % Eos % (Auto) 3.2 (0.0-7.0) % Baso % (Auto) 0.2 (0.0-3.0) % Neut # (Auto) 5.70 (1.7-7.0) K/uL Lymph # (Auto) 4.60 H (0.90-2.90) K/uL Eaton # (Auto) 0.80 (0.00-0.90) K/UL Eos # (Auto) 0.40 (0.00-0.50) K/uL Baso # (Auto) 0.00 (0.00-0.30) K/uL ESR 8 (2-20) mm/hr Sodium 136 (135-149) mmol/L Potassium 3.8 (3.6-5.1) mmol/L Chloride 98 (96-114) mmol/L Carbon Dioxide 28 (20-32) mmol/L BUN 15 (7-30) mg/dL Creatinine 0.9 (0.5-1.5) mg/dL Estimated Creat Clear 52.67 Estimated GFR 75 ml/min Glucose 217 H (60-115) mg/dL Calcium 9.4 (8.4-10.6) mg/dL Total Bilirubin 0.5 (0.1-1.5) mg/dL Direct Bilirubin 0.2 (0.0-0.5) mg/dL AST 19 (12-35) U/L ALT 25 (4-35) U/L Alkaline Phosphatase 93 (40-150) U/L C-Reactive Protein 1.5 H (0.5-1.0) mg/dL Total Protein 7.0 (6.0-8.3) g/dL Albumin 4.1 (3.3-5.0) g/dL TSH 0.909 (0.270-4.20) uIU/mL Urine Color Yellow (Yellow) Urine Appearance Clear (Clear) Urine pH 5.0 (5.0-8.5) Ur Specific [place] 1.025 (1.000-1.030) Urine Protein Negative (Negative) Urine Glucose (UA) 2+ A (Negative) Urine Ketones Negative (Negative) Urine Blood 2+ A (Negative) Urine Nitrite Negative (Negative) Urine Bilirubin Negative (Negative) Urine Urobilinogen 0.2 (0.2-1.0) Ur Leukocyte Esterase Negative (Negative) Urine RBC 0-2 (0-2) Urine WBC 0-2 (0-5) Ur Squamous Epith Cells Few (None-Few) Urine Bacteria None (None) Lab Acknowledgement POC Troponin I 0.00 L 0.00 L (0.01-0.04) ng/ml 02/08/23 Range/Units 19:45 WBC (4.50-11.00) K/uL RBC (4.00-5.20) m/uL Hgb (12.0-16.0) gm/dL Hct (33.0-51.0) % MCV (80-100) fL MCH (26-34) pg MCHC (32-36) gm/dL RDW Coeff of Jovani (11.5-15.5) % Plt Count (140-440) K/uL Neut % (Auto) (42.0-72.0) % Lymph % (Auto) (20-44) % Eaton % (Auto) (0.0-11.0) % Eos % (Auto) (0.0-7.0) % Baso % (Auto) (0.0-3.0) % Neut # (Auto) (1.7-7.0) K/uL Lymph # (Auto) (0.90-2.90) K/uL Eaton # (Auto) (0.00-0.90) K/UL Eos # (Auto) (0.00-0.50) K/uL Baso # (Auto) (0.00-0.30) K/uL ESR (2-20) mm/hr Sodium (135-149) mmol/L Potassium (3.6-5.1) mmol/L Chloride (96-114) mmol/L Carbon Dioxide (20-32) mmol/L BUN (7-30) mg/dL Creatinine (0.5-1.5) mg/dL Estimated Creat Clear Estimated GFR ml/min Glucose (60-115) mg/dL Calcium (8.4-10.6) mg/dL Total Bilirubin (0.1-1.5) mg/dL Direct Bilirubin (0.0-0.5) mg/dL AST (12-35) U/L ALT (4-35) U/L Alkaline Phosphatase (40-150) U/L C-Reactive Protein (0.5-1.0) mg/dL Total Protein (6.0-8.3) g/dL Albumin (3.3-5.0) g/dL TSH (0.270-4.20) uIU/mL Urine Color (Yellow) Urine Appearance (Clear) Urine pH (5.0-8.5) Ur Specific [place] (1.000-1.030) Urine Protein (Negative) Urine Glucose (UA) (Negative) Urine Ketones (Negative) Urine Blood (Negative) Urine Nitrite (Negative) Urine Bilirubin (Negative) Urine Urobilinogen (0.2-1.0) Ur Leukocyte Esterase (Negative) Urine RBC (0-2) Urine WBC (0-5) Ur Squamous Epith Cells (None-Few) Urine Bacteria (None) Lab Acknowledgement Test Added POC Troponin I (0.01-0.04) ng/ml Imaging Data CT scan - chest: Attestation: I have reviewed the pertinent imaging results. Radiologist's impression: CHEST: Pulmonary arteries: Motion degrades evaluation of the distal segmental and subsegmental pulmonary arteries. No large central or proximal segmental pulmonary embolus. Lungs and Airways: No mass or consolidation. No endoluminal lesion. Heart and Mediastinum: Right thyroid nodule. No axillary or supraclavicular lymphadenopathy. No mediastinal, hilar or retrocrural lymphadenopathy. Normal heart size. Normal caliber aorta. Vascular calcifications. Pleura: The pleural spaces are normal. ABDOMEN: Liver: Subtle area of increased enhancement in the caudate, potentially transient hepatic attenuation differences. Gallbladder and biliary: Normal gallbladder without radiopaque stone. Normal caliber bile ducts. Spleen: Normal size and enhancement. Pancreas: Normal enhancement without peripancreatic inflammatory changes or ductal dilatation. Adrenal glands: Normal adrenal glands. Kidneys and ureters: Normal enhancement. No radio-opaque calculi. No hydroureteronephrosis. GI tract: The stomach is relatively decompressed. Normal caliber small and large bowel loops. Normal appendix. Vascular structures: Normal caliber abdominal aorta. Lymph nodes: No lymphadenopathy in the abdomen or pelvis by size criteria. Peritoneum: No free air, free fluid, or focal drainable fluid collection. PELVIS: Genitourinary system: Urinary bladder is decompressed. Hysterectomy. Ovaries not visualized. SKELETAL STRUCTURES AND SOFT TISSUES: No suspicious lytic or blastic lesions. Left subscapularis lipoma. IMPRESSION: 1. Motion degrades evaluation of the distal segmental and subsegmental pulmonary arteries. No large central or proximal segmental pulmonary embolus. 2. No intrathoracic mass or consolidation. 3. Right thyroid nodule. Consider nonemergent thyroid ultrasound if not previously performed. 4. No acute abdominal or pelvic process. No obstruction. No hydronephrosis. Normal appendix. Chest x-ray: Attestation: I have reviewed the pertinent imaging results. My impression: No infiltrates Radiologist's impression: No focal consolidation, pleural effusion, or pneumothorax.? Normal heart size and pulmonary vascularity.? The bones are unremarkable. IMPRESSION: No acute cardiopulmonary findings. ECG Data Attestation: I personally reviewed and interpreted this ECG as follows: ECG interpretation date: 02/08/23 Interpretation: EKG 1. By my read shows sinus tachycardia at a rate of 1010. T-wave inversions noted in 1 2 and lateral leads. No other acute ST elevation. EKG 2. By my read shows sinus tachycardia at a rate of 103. No significant changes except some resolution of the T-wave inversion in the lateral leads. Discharge Plan Discharge Clinical Impression: Atypical chest pain, GERD (gastroesophageal reflux disease), Abdominal pain Patient Disposition: Home, Self-Care Condition: Improved Additional Instructions: Continue [id number] omeprazole 20 mg daily for 2 weeks. Follow-up with your primary MD for a recheck. Need to schedule outpatient ultrasound for a thyroid nodule. Tramadol will be put into our [employer] meds machine Prescriptions: No Action atorvastatin 10 mg tablet 10 mg PO QDAY Qty: 90 3RF Rx Instructions: Fill when needed bupropion HCl 300 mg tablet extended release 24 hr 300 mg PO QAM Qty: 90 3RF Rx Instructions: Fill when needed sitagliptin phosphate 100 mg tablet 100 mg PO QDAY Qty: 90 3RF Rx Instructions: Fill when needed metformin 500 mg tablet extended release 24 hr 1,000 mg PO BID Qty: 360 3RF Rx Instructions: Fill when needed lorazepam 1 mg tablet 1 mg PO BID PRN (Reason: anxiety) Qty: 30 0RF duloxetine 60 mg capsule,delayed release(DR/EC) 60 mg PO QDAY Qty: 90 1RF Levemir FlexPen 100 unit/mL (3 mL) insulin pen 35 unit subcut QHS Qty: 15 1RF cyclobenzaprine 10 mg tablet 10 mg PO TID Qty: 15 0RF ketorolac 10 mg tablet 10 mg PO Q8H 5 Days Qty: 15 0RF aspirin 81 mg tablet,delayed release (DR/EC) 81 mg PO QDAY fluticasone propionate [Flonase Allergy Relief] 50 mcg/actuation spray,suspension 1 spray intranasal QDAY Rx Instructions: administer into each nostril (DME) pen needle, diabetic [UltiCare Pen Needle] 32 gauge x 5/32 needle See Rx Instructions .Route Qty: 100 5RF Rx Instructions: Use Daily As directed gabapentin 300 mg capsule 300 mg PO BID Qty: 180 2RF Follow Up/Referrals: Bryce Fallon MD [Primary Care Provider] - Stand Alone Forms: Sequence Designth Info Instructions
--- NOTE | 2023-02-08 16:29 | CRLHL7_ITS ---
For Patients: As a result of the Century Cures Act, medical imaging exams and procedure reports are released immediately into your electronic medical record. You may view this report before your referring provider. If you have questions, please contact your health care provider. INDICATION: Chest pain EPIGASTRIC AND FLANK PAIN TECHNIQUE: CT chest, abdomen and pelvis acquired 95 milliliters Isovue 370 contrast. COMPARISON: None. FINDINGS: CHEST: Pulmonary arteries: Motion degrades evaluation of the distal segmental and subsegmental pulmonary arteries. No large central or proximal segmental pulmonary embolus. Lungs and Airways: No mass or consolidation. No endoluminal lesion. Heart and Mediastinum: Right thyroid nodule. No axillary or supraclavicular lymphadenopathy. No mediastinal, hilar or retrocrural lymphadenopathy. Normal heart size. Normal caliber aorta. Vascular calcifications. Pleura: The pleural spaces are normal. ABDOMEN: Liver: Subtle area of increased enhancement in the caudate, potentially transient hepatic attenuation differences. Gallbladder and biliary: Normal gallbladder without radiopaque stone. Normal caliber bile ducts. Spleen: Normal size and enhancement. Pancreas: Normal enhancement without peripancreatic inflammatory changes or ductal dilatation. Adrenal glands: Normal adrenal glands. Kidneys and ureters: Normal enhancement. No radio-opaque calculi. No hydroureteronephrosis. GI tract: The stomach is relatively decompressed. Normal caliber small and large bowel loops. Normal appendix. Vascular structures: Normal caliber abdominal aorta. Lymph nodes: No lymphadenopathy in the abdomen or pelvis by size criteria. Peritoneum: No free air, free fluid, or focal drainable fluid collection. PELVIS: Genitourinary system: Urinary bladder is decompressed. Hysterectomy. Ovaries not visualized. SKELETAL STRUCTURES AND SOFT TISSUES: No suspicious lytic or blastic lesions. Left subscapularis lipoma. IMPRESSION: 1. Motion degrades evaluation of the distal segmental and subsegmental pulmonary arteries. No large central or proximal segmental pulmonary embolus. 2. No intrathoracic mass or consolidation. 3. Right thyroid nodule. Consider nonemergent thyroid ultrasound if not previously performed. 4. No acute abdominal or pelvic process. No obstruction. No hydronephrosis. Normal appendix. Please note that all CT scans at this facility use dose modulation, iterative reconstruction, and/or weight-based dosing when appropriate to reduce radiation dose to as low as reasonably achievable. Dictated by Bryce Ruiz MD @ 02/08/2023 6:51:43 PM (Electronically Signed)
[2023-02-08 17:02] LABS: Basophils Percent Auto 0.2 % (0.0-3.0); Eosinophils Percent Auto 3.2 % (0.0-7.0); Hematocrit 42.6 % (33.0-51.0); Hemoglobin* 14.1 gm/dL (12.0-16.0); Immature Granulocytes Pct Auto 0.4 %; Lymphocytes Percent Auto 40.1 % (20-44); Mean Corpuscular HGB Conc 33 gm/dL (32-36); Mean Corpuscular Hemoglobin 28 pg (26-34); Mean Corpuscular Volume 85 fL (80-100); Monocytes Percent Auto 6.6 % (0.0-11.0); Neutrophils Percent Auto 49.5 % (42.0-72.0); Platelet Count* 329 K/uL (140-440); RDW Coefficient of Variation % 12.7 % (11.5-15.5); Red Blood Count 5.02 m/uL (4.00-5.20); White Blood Count* 11.51 K/uL (4.50-11.00)
[2023-02-08 17:14] LABS: Slide Review Reflex No
[2023-02-08 17:15] LABS: Appearance Urine Clear (Clear); Bilirubin Urine Negative (Negative); Blood Urine 2+ (Negative); Color Urine Yellow (Yellow); Glucose Urine 2+ (Negative); Ketones Urine Negative (Negative); Leukocyte Esterase Urine Negative (Negative); Nitrite Urine Negative (Negative); Protein Urine Negative (Negative); Specific Gravity Urine 1.025 (1.000-1.030); Urobilinogen Urine 0.2 (0.2-1.0)
[2023-02-08 17:18] LABS: Albumin* 4.1 g/dL (3.3-5.0); Chloride* 98 mmol/L (96-114); Sodium* 136 mmol/L (135-149)
[2023-02-08 17:19] LABS: Potassium* 3.8 mmol/L (3.6-5.1)
[2023-02-08 17:21] LABS: Alanine Aminotransferase* 25 U/L (4-35); Alkaline Phosphatase* 93 U/L (40-150); Aspartate Amino Transferase* 19 U/L (12-35); Bilirubin Direct* 0.2 mg/dL (0.0-0.5); Bilirubin Total* 0.5 mg/dL (0.1-1.5); Blood Urea Nitrogen* 15 mg/dL (7-30); Carbon Dioxide* 28 mmol/L (20-32); Creatinine* 0.9 mg/dL (0.5-1.5); Est. Creatinine Clearance* 52.67; Estimated Glomerular Filt Rate 75 ml/min; Glucose* 217 mg/dL (60-115)
[2023-02-08 17:22] LABS: Calcium* 9.4 mg/dL (8.4-10.6)
[2023-02-08 17:24] LABS: C Reactive Protein* 1.5 mg/dL (0.5-1.0)
[2023-02-08 17:27] LABS: RBC Urine 0-2 (0-2); Squamous Epithelial Cell Urine Few (None-Few); WBC Urine 0-2 (0-5)
[2023-02-08 17:40] LABS: Erythrocyte SedimentationRate* 8 mm/hr (2-20)
[2023-02-08] MEDS: KETOROLAC 15 MG/ML inj IVP (19:26)
[2023-02-08] MEDS: GI COCKTAIL (VISC LIDO/ANTACID) 30 ML PO (19:27)
[2023-02-08] MEDS: 0.9 % SODIUM CHLORIDE 1000 ml 1,000 ML IV (20:09)
--- NOTE | 2023-02-08 20:15 | ED.NURSE ---
Patient reports GI cocktail made pain worse. IVF started per orders
[2023-02-08 20:37] LABS: Thyroid Stimulating Hormone* 0.909 uIU/mL (0.270-4.20)
[2023-02-08] MEDS: OMEPRAZOLE 20 MG CAPSULE DR 40 MG PO (21:13)
== END 2023-02-08 21:31 | disposition home or self-care (01) ==
PROVIDERS: Emergency Provider Family Medicine; PCP Family Medicine
DX: R07.9 Chest pain, unspecified (principal); E04.1 Nontoxic single thyroid nodule; K21.9 Gastro-esophageal reflux disease without esophagitis
CPT/HCPCS: 36415; 71260; 74177; 76705; 80053; 81001; 82248; 84443; 84484; 85025; 85651; 86140; 93005; 96374; 99284; 99285; A9270; J1885; J7030; Q9967

== ENCOUNTER 2023-02-13 06:46 | Outpatient (CLI) | payer MEDICAID, SELFPAY ==
--- NOTE | 2023-02-13 07:15 | CRLHL7_ITS ---
For Patients: As a result of the Cures Act, medical imaging exams and procedure reports are released immediately into your electronic medical record. You may view this report before your referring provider. If you have questions, please contact your health care provider. INDICATION: Thyroid nodule on CT COMPARISON: CT 02/08/2023 TECHNIQUE: Bernal scale and color Doppler images were acquired of the thyroid gland. FINDINGS: The thyroid gland demonstrates diffusely heterogeneous echogenicity and has a macrolobular outer contour. The right lobe measures 4.8 x 1.9 x 1.9 cm and the left lobe measures 4.7 x 1.3 x 1.9 cm in size. Isthmus measures 4 millimeters. Multiple nodules are present bilaterally. The largest nodule is located within the lower pole of the right thyroid lobe at the medial aspect measuring 2.1 x 1.8 x 1.9 cm. This nodule is heterogeneously hypoechoic with macrocalcification, TR 4. Numerous other smaller nodules are present bilaterally. The color Doppler images demonstrate normal vascularity. There is no evidence of cervical lymphadenopathy or parathyroid mass. IMPRESSION: Multinodular goiter. 2.1 cm nodule lower pole right thyroid lobe. FNA recommended. Dictated by Bryce Waggoner MD @ 02/13/2023 9:04:32 AM (Electronically Signed)
== END 2023-02-13 06:47 | disposition home or self-care (01) ==
LOC: US 06:47
PROVIDERS: PCP Family Medicine; Visit Provider Family Medicine
DX: E04.1 Nontoxic single thyroid nodule (principal)
CPT/HCPCS: 76536

== ENCOUNTER 2023-10-02 18:19 | Emergency (ER) | payer MEDICAID, SELFPAY ==
[2023-10-02 18:40] VITALS: BP 167/83; PULSE 115; RESP 16; TEMP 36.2; O2SAT 97; BMI 28.3
--- NOTE | 2023-10-02 21:15 | ED.FEMALEGU ---
HPI - Female Genitourinary General Time Seen by Provider: 21:15 Date Seen: 10/02/23 Chief complaint: Urogenital Problems, Female Stated complaint: Passed bld clot-blood in urine-thyroid removed Time Seen by Provider: 10/02/23 22:22 Source: patient, RN notes reviewed and old records reviewed Mode of arrival: ambulatory Limitations: no limitations History of Present Illness HPI Narrative: Janet is a very pleasant 58-year-old female with a history of recent thyroid surgery secondary to nodule, type 2 diabetes who comes to the emergency room with complaints of hematuria. Patient notes that approximately 0600 hours tonight she was having some difficulty urinating. She states that she had to push on her belly and at that point a large blood clot popped out. Since that time she has had persistent hematuria. She denies fever or chills. She has had some left flank pain because she fell and hurt her ribs on Sunday. She notes that it is breathe easier to breathe today. She did not lose consciousness. Bleeding did not start till today and the fall came greater than 48 hours ago. She is not currently on any blood thinners. Related Data Home Medications Medication Instructions Recorded Confirmed aspirin 81 mg tablet,delayed 81 mg PO QDAY 05/08/22 10/02/23 release fluticasone propionate 50 1 spray intranasal QDAY 05/08/22 10/02/23 mcg/actuation nasal spray,suspension (Flonase Allergy Relief) exenatide microspheres 2 mg 2 mg subcut QWEEK 06/06/23 10/02/23 subcutaneous extended release suspension levothyroxine 112 mcg tablet 112 mcg PO DAILY 09/28/23 10/02/23 exenatide microspheres 2 mg/0.85 mg subcut 10/02/23 mL subcutaneous auto-injector (ByAkampusse) Previous Rx's Medication Instructions Recorded blood sugar diagnostic (Blood #100 ea 02/09/23 Glucose Test strips) pen needle, diabetic 32 gauge x #100 ea 02/09/23 (UltiCare Pen Needle) omeprazole 20 mg capsule,delayed 20 mg PO QDAY #30 caps 05/25/23 release bupropion HCl 150 mg 24 hr tablet, 150 mg PO QAM #30 tabs 06/06/23 extended release (Wellbutrin XL) lorazepam 1 mg tablet 1 mg PO BID PRN anxiety #30 tabs 06/06/23 insulin detemir U-100 100 unit/mL 35 unit (0.35 mL) subcut QPM #15 mL 07/06/23 (3 mL) subcutaneous pen (Levemir FlexPen) duloxetine 60 mg capsule,delayed 60 mg PO QDAY #90 caps 08/21/23 release atorvastatin 10 mg tablet 10 mg PO QDAY #90 tabs 08/27/23 metformin 500 mg tablet,extended 1,000 mg (2 x 500 mg) PO BID #360 08/30/23 release 24 hr tabs bupropion HCl 300 mg 24 hr tablet, 300 mg PO QAM #30 tabs 09/12/23 extended release estradiol 0.5 mg tablet (Estrace) 0.5 mg PO QDAY #30 tabs 09/26/23 gabapentin 300 mg capsule 300 mg PO BID #180 caps 09/26/23 Allergies Allergy/AdvReac Type Severity Reaction Status Date / Time codeine Allergy Intermediate Itchy, Verified 10/02/23 18:47 diaphoretic hydromorphone Allergy Intermediate Vomiting Verified 10/02/23 18:47 and itching oxycodone Allergy Intermediate Itchy, Verified 10/02/23 18:47 diaphoretic hydrocodone Allergy Unknown Itchiness Verified 10/02/23 18:47 meclizine Allergy Unknown Verified 10/02/23 18:47 morphine Allergy Unknown Itchy, Verified 10/02/23 18:47 diaphoretic Sulfa (Sulfonamide Allergy Verified 10/02/23 18:47 Antibiotics) narcotics Allergy Uncoded 09/28/23 08:35 Review of Systems Status of ROS: Reports: 6 or more systems reviewed and unremarkable except as noted in History and below [facility] Medical History Thyroid nodule ?E04.1 - Nontoxic single thyroid nodule (ICD-10) Type 2 diabetes mellitus, with long-term current use of insulin ?E11.9 - Type 2 diabetes mellitus without complications (ICD-10) ?Z79.4 - detention (current) use of insulin (ICD-10) Mixed hyperlipidemia ?E78.2 - Mixed hyperlipidemia (ICD-10) Primary hypertension ?I10 - Essential (primary) hypertension (ICD-10) Anxiety and depression ?F41.9 - Anxiety disorder, unspecified (ICD-10) ?F32.A - Depression, unspecified (ICD-10) Vitamin D deficiency ?E55.9 - Vitamin D deficiency, unspecified (ICD-10) Postmenopausal atrophic vaginitis ?N95.2 - Postmenopausal atrophic vaginitis (ICD-10) Meniere's disease ?H81.09 - Meniere's disease, unspecified ear (ICD-10) 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 (11/23/12) ?M51.26 - Other intervertebral disc displacement, lumbar region (ICD-10) Diabetic neuropathy ?E11.40 - Type 2 diabetes mellitus with diabetic neuropathy, unspecified (ICD-10) Clostridioides difficile diarrhea ?A04.72 - Enterocolitis due to Clostridium difficile, not specified as recurrent (ICD-10) Amaurosis fugax of right eye ?G45.3 - Amaurosis fugax (ICD-10) Adenomatous polyp of colon ?D12.6 - Benign neoplasm of colon, unspecified (ICD-10) Surgical History History of thyroidectomy ?E89.0 - Postprocedural hypothyroidism (ICD-10) History of total hysterectomy with bilateral salpingo-oophorectomy (BSO) (2011) ?Z90.710 - Acquired absence of both cervix and uterus (ICD-10) ?Z90.722 - Acquired absence of ovaries, bilateral (ICD-10) ?Z90.79 - Acquired absence of other genital organ(s) (ICD-10) History of third molar tooth extraction ?K08.409 - Partial loss of teeth, unspecified cause, unspecified class (ICD-10) History of bilateral breast reduction surgery ?Z98.890 - Other specified postprocedural states (ICD-10) Family History Sister Breast cancer, Onset Age: 66 Depression Multiple myeloma Family history of stroke or transient ischemic attack in sister Mother Depression Alcoholism Oral cancer Father Alcoholism Multiple myeloma Brother Colon cancer, Onset Age: 48 Melanoma Other Maternal family history of seizure disorder Social History Narrative: Exercise involving walking- 11,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 , 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, 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 Nontoxic in appearance. She shows me her healing scar over the area of the thyroid. No erythema noted. Scabbing noted on the right aspect. Mentating normally with a GCS of 15. Heart with regular rate and rhythm at this time and lungs are clear. Abdomen is soft nontender. She does have tenderness noted over the posterior lateral ribs on the left approximately the 567 area. No eye erythema or ecchymosis at this time. Moving all extremities. Const: Vital Signs, click to edit/add: Vital Signs - 24 hr 10/02/23 18:40 Temperature 97.2 F L Pulse Rate [Pulse Oximeter] 115 H Respiratory Rate 16 Blood Pressure [Ri ght Upper Arm] 167/83 H Pulse Oximetry 97 Oxygen Delivery Me thod Room Air Documenting provider has reviewed patient's vital signs: yes Course Course ED Course: At this time patient does describe a UTI except we have to consider recent trauma to the left flank area. She notes that she is doing better after the fall and I can find no external signs of trauma although she still has some tenderness noted over the left posterior lateral ribcage. Our plan at this time is to treat for UTI if she does have white cells noted in the urine. If they are absent she will need to undergo CT of the chest in abdomen as this certainly could be traumatic injury in nature. Vital Signs Vital signs: Initial Vital Signs Temperature 97.2 F L 10/02/23 18:40 Temperature Source Temporal Artery Scan 10/02/23 18:40 Pulse Rate 115 H 10/02/23 18:40 Pulse Rhythm Regular 10/02/23 18:40 Pulse Strength 3+ Normal 10/02/23 18:40 Respiratory Rate 16 10/02/23 18:40 Blood Pressure 167/83 H 10/02/23 18:40 Blood Pressure Mean 111 H 10/02/23 18:40 Blood Pressure Position Sitting 10/02/23 18:40 Pulse Oximetry 97 10/02/23 18:40 Oxygen Delivery Method Room Air 10/02/23 18:40 Vital Signs Temperature 97.2 F L 10/02/23 18:40 Pulse Rate 115 H 10/02/23 18:40 Respiratory Rate 16 10/02/23 18:40 Blood Pressure 167/83 H 10/02/23 18:40 Pulse Oximetry 97 10/02/23 18:40 Oxygen Delivery Method Room Air 10/02/23 18:40 Temperature 97.2 F L 10/02/23 18:40 Pulse Rate 115 H 10/02/23 18:40 Respiratory Rate 16 10/02/23 18:40 Blood Pressure 167/83 H 10/02/23 18:40 Pulse Oximetry 97 10/02/23 18:40 Oxygen Delivery Method Room Air 10/02/23 18:40 MDM - Female Genitourinary MDM Narrative Medical decision making narrative: 1. UTI-patient has both red and white cells noted in her urine. Patient noted to have urinary symptoms starting this evening. Was sexually active with anal penetration in the lost 48 hours. Recommend antibiotic treatment with Cipro 500 mg p.o. b.i.d. x7 days. Will await urine culture. 2. Left chest wall trauma-at this time patient notes that she is actually improving. She fell a few nights ago. No external signs of trauma. And hematuria did not start until tonight. I was concerned that perhaps this represented a kidney injury but given the presence of white cells this most likely is represents a UTI. However, patient is to continue monitoring and if she has increasing pain, fever, persistent hematuria she will need to return for further evaluation and possible imaging of the kidney. 3. Disposition-home at this time. Patient feels comfortable with our plan. Will return for worsening symptoms. Medical Records Attestation: I reviewed the patient's medical records. Lab Data Attestation: I reviewed the patient's lab results. Labs: Lab Results 10/02/23 Range/Units 21:02 Urine Color Brown A (Yellow) Urine Appearance Cloudy A (Clear) Urine pH 6.0 (5.0-8.5) Ur Specific Star 1.030 (1.000-1.030) Urine Protein 3+ A (Negative) Urine Glucose (UA) 3+ A (Negative) Urine Ketones Negative (Negative) Urine Blood 3+ A (Negative) Urine Nitrite Negative (Negative) Urine Bilirubin 3+ A (Negative) Urine Urobilinogen 0.2 (0.2-1.0) Ur Leukocyte Esterase 2+ A (Negative) Urine RBC 5-10 A (0-2) Urine WBC 10-25 A (0-5) Ur Squamous Epith Cells None (None-Few) Amorphous Sediment Many A (None) Urine Bacteria Few A (None) Discharge Plan Discharge Clinical Impression: UTI (urinary tract infection) Qualifiers: Urinary tract infection type: acute cystitis Hematuria presence: with hematuria Qualified Code(s): N30.01 - Acute cystitis with hematuria Patient Disposition: Home, Self-Care Condition: Unchanged Additional Instructions: Start Cipro tonight for urinary tract infection. A culture will be done and if your culture comes back with evidence of resistance to Cipro we will call you in changing to a different antibiotic. Push fluids. If you have worsening symptoms such as fever, vomiting return for further evaluation. Prescriptions: No Action levothyroxine 112 mcg tablet 112 mcg PO DAILY (DME) pen needle, diabetic [UltiCare Pen Needle] 32 gauge x 5/32 needle See Rx Instructions .Route Qty: 100 5RF Rx Instructions: Use Daily As directed (DME) Blood Glucose Test Strip See Rx Instructions .Route Qty: 100 5RF Rx Instructions: Tests BID exenatide microspheres 2 mg suspension,extended rel recon 2 mg subcut QWEEK lorazepam 1 mg tablet 1 mg PO BID PRN (Reason: anxiety) Qty: 30 0RF Bydureon BCise 2 mg/0.85 mL auto-injector subcut aspirin 81 mg tablet,delayed release (DR/EC) 81 mg PO QDAY fluticasone propionate [Flonase Allergy Relief] 50 mcg/actuation spray,suspension 1 spray intranasal QDAY Rx Instructions: administer into each nostril omeprazole 20 mg capsule,delayed release(DR/EC) 20 mg PO QDAY Qty: 30 2RF bupropion HCl [Wellbutrin XL] 150 mg tablet extended release 24 hr 150 mg PO QAM Qty: 30 2RF Levemir FlexPen 100 unit/mL (3 mL) insulin pen 35 unit subcut QPM Qty: 15 1RF duloxetine 60 mg capsule,delayed release(DR/EC) 60 mg PO QDAY Qty: 90 0RF atorvastatin 10 mg tablet 10 mg PO QDAY Qty: 90 0RF Rx Instructions: Needs appt in August. metformin 500 mg tablet extended release 24 hr 1,000 mg PO BID Qty: 360 0RF Rx Instructions: Fill when needed bupropion HCl 300 mg tablet extended release 24 hr 300 mg PO QAM Qty: 30 0RF Rx Instructions: Fill when needed gabapentin 300 mg capsule 300 mg PO BID Qty: 180 0RF estradiol [Estrace] 0.5 mg tablet 0.5 mg PO QDAY Qty: 30 0RF Follow Up/Referrals: Bryce Fallon MD [Primary Care Provider] - Stand Alone Forms: [employer] Info Instructions
[2023-10-02 21:57] LABS: Appearance Urine Cloudy (Clear); Color Urine Brown (Yellow)
[2023-10-02 21:58] LABS: Bilirubin Urine 3+ (Negative); Blood Urine 3+ (Negative); Glucose Urine 3+ (Negative); Ketones Urine Negative (Negative)
[2023-10-02 21:59] LABS: Leukocyte Esterase Urine 2+ (Negative); Nitrite Urine Negative (Negative); Protein Urine 3+ (Negative); Urobilinogen Urine 0.2 (0.2-1.0)
[2023-10-02 22:19] LABS: Amorphous Sediment Urine Many; Bacteria Urine Few
== END 2023-10-02 22:33 | disposition home or self-care (01) ==
PROVIDERS: Emergency Provider Family Medicine; PCP Family Medicine
DX: N30.01 Acute cystitis with hematuria (principal)
CPT/HCPCS: 81001; 87086; 87186; 99283; 99284

== ENCOUNTER 2023-10-29 08:46 | Outpatient (CLI) | payer MEDICAID, SELFPAY | END 2023-10-29 08:47 | disposition home or self-care (01) | PROVIDERS: PCP Family Medicine; Visit Provider Family Medicine | DX: E78.2 Mixed hyperlipidemia (principal); Z79.899 Other long term (current) drug therapy; N92.5 Other specified irregular menstruation; I10 Essential (primary) hypertension | CPT/HCPCS: 80048; 80061; 82670; 83001; 83002; 84144; 84460 ==

== ENCOUNTER 2023-12-11 11:55 | Outpatient (CLI) | payer MEDICAID, SELFPAY ==
[2023-12-11 15:28] LABS: Chlamydia DNA Amplified* NOT DETECTED (No Detected); GC DNA Amplified* NOT DETECTED (No Detected)
== END 2023-12-11 11:56 | disposition home or self-care (01) ==
LOC: NFLDREF 11:55
PROVIDERS: PCP Family Medicine; Visit Provider Physician Assistant
DX: N93.9 Abnormal uterine and vaginal bleeding, unspecified (principal)
CPT/HCPCS: 87491; 87591

== ENCOUNTER 2023-12-19 09:01 | Outpatient (CLI) | payer MEDICAID, SELFPAY ==
--- NOTE | 2023-12-19 09:30 | US_ITS ---
Patient: MINOO PIERREOGH Facility:?[facility] Patient ID:?[id number] Site Patient ID:?[id number]. Site :?[id number] Study:?US-Pelvis TRANSABDOMINAL AND TRANSVAGINAL-12/19/2023 10:09:44 AM Ordering Physician:?PILLO VELAZQUEZ Final Report: INDICATION: Postmenopausal bleeding COMPARISON: CT 02/08/2023 TECHNIQUE: 2D rosado scale and color Doppler images were acquired of the pelvis using a transabdominal and transvaginal approach. FINDINGS: Vaginal cuff appears intact. No pelvic mass. Postop changes BSO/hysterectomy. There are no suspicious fluid collections within the cul-de-sac. IMPRESSION: Postop changes. No suspicious findings. Dictated by Bryce Waggoner MD @ 12/19/2023 10:39:33 AM Signed by:?Bryce Waggoner MD @12/19/2023 10:39:33 AM (Electronic Signature)
== END 2023-12-19 09:02 | disposition home or self-care (01) ==
LOC: US 09:02
PROVIDERS: PCP Physician Assistant; Visit Provider Physician Assistant
DX: N95.0 Postmenopausal bleeding (principal)
CPT/HCPCS: 76830; 76856

== ENCOUNTER 2024-02-28 08:20 | Outpatient (CLI) | payer MEDICAID, SELFPAY ==
[2024-02-28 15:15] LABS: Chlamydia DNA Amplified* NOT DETECTED (No Detected); GC DNA Amplified* NOT DETECTED (No Detected)
== END 2024-02-28 08:21 | disposition home or self-care (01) ==
PROVIDERS: PCP Physician Assistant; Visit Provider Registered Nurse
DX: Z11.3 Encounter for screening for infections with a predominantly sexual mode of transmission (principal)
CPT/HCPCS: 86592; 86703; 86803; 87340; 87491; 87591

== ENCOUNTER 2024-03-18 10:02 | Outpatient (CLI) | payer MEDICAID, SELFPAY | END 2024-03-18 10:03 | disposition home or self-care (01) | LOC: NFLDREF 10:04 | PROVIDERS: PCP Family Medicine; Visit Provider Family Medicine | DX: I10 Essential (primary) hypertension (principal) | CPT/HCPCS: 80048 ==

== ENCOUNTER 2024-03-20 11:01 | Day surgery (SDC) | payer MEDICAID, SELFPAY ==
[2024-03-20] MEDS: SODIUM CHLORIDE 0.9 % (FLUSH) 10 ML SYRINGE IVF (11:39)
[2024-03-20] MEDS: LACTATED RINGERS 1000 ML 1,000 ML 100 ML IV ×2 (11:39→15:16)
[2024-03-20 11:45] VITALS: BP 133/83; PULSE 117; RESP 16; TEMP 36.6; O2SAT 96; BMI 28.3
[2024-03-20 11:45] LABS: Hemoglobin* 13.4 gm/dL (12.0-16.0)
[2024-03-20 12:00] LABS: Creatinine* 1.1 mg/dL (0.5-1.5); Est. Creatinine Clearance* 40.53; Estimated Glomerular Filt Rate 59 ml/min
--- NOTE | 2024-03-20 14:20 | P.GYNPRC_ITS ---
Procedure Note Time Seen by Provider: 15:48 Date of procedure: 03/20/24 Will [facility] bill your pro fee for this procedure?: Yes Pre-op diagnosis: 1. Vulvovaginal condyloma acuminata 2. RICARDO 1 Post-op diagnosis: 1. Vulvovaginal condyloma acuminata 2. RICARDO 1 Procedure: 1. Exam under anesthesia 2. Vaginoscopy 3. Vulvovaginal condyloma acuminatum excision/fulgurations 4. Vaginal laceration repair Anesthesia: MAC and local Complications: None Surgeon: Latasha Romeo MD Estimated blood loss (mL): 5 IV fluids (mL): 900 Pathology: specimen obtained, sent to pathology Condition: stable Disposition: floor Findings: Exam under anesthesia: 1 small raised papule approximately 1 mm noted on the left inner portion of the clitoral suggs; raised rough papule 1-2 mm noted on the lower portion of the inner labia minora; cluster of raised, rough, white papules noted at vaginal introitus at the fourchette approximately 5-7 mm in length by 2-3 mm in width; just inside of the vagina, there is a cluster of raised rough papules on bilateral vaginal craven. Small condyloma stippled around her urethra. Consistent with with previously documented exam. Vaginoscopy performed and was overall reassuring, with slight discoloration of the lesion at the vaginal introitus/fourchette only. Vaginal vault and vaginal cuff were normal. Bimanual exam reveals no palpable adnexal masses. Procedure Description: DESCRIPTION OF PROCEDURE: The patient was taken to the operating room where MAC was administered. A surgical time-out was performed with the entire operative staff per protocol. Vaginoscopy was performed with Lugol prior to vaginal prep. She was prepared and draped in normal sterile fashion in the dorsal lithotomy position in yellow fin stirrups, taking care to avoid lower extremity hyperextension, hyperflexion or compression. Pneumoboots were placed and activated. EUA revealed the above findings. Condyloma acuminata were excised and fulgurated using a variety of methods including pickups, Metzenbaum, electrocautery, and silver nitrate with care taken to preserve anatomy. The cluster at the vaginal fourchette was directly excised with a scalpel. The vaginal laceration was repaired with 3-0 Vicryl. Hemostasis was achieved with electrocautery and silver nitrate. At the end of the procedure, bacitracin was applied as a protective barrier. Specimen was sent to pathology. The patient tolerated the procedure well. Sponge, lap and needle counts were correct x 2. Surgical debrief performed and specimen reviewed. The patient was taken to the recovery room in stable condition.
--- NOTE | 2024-03-20 14:21 | W.PM.H&PU ---
History & Physical Update History & Physical Update H&P Reviewed and patient assessed: No changes noted
--- NOTE | 2024-03-20 14:23 | W.ANESCHARGE ---
Anesthesia Charges Start Date/Time Anesthesia Start Date: 03/20/24 Anesthesia Start Time: 14:10 Stop Date/Time Anesthesia Stop Date: 03/20/24 Anesthesia Stop Time: 15:50
[2024-03-20] MEDS: SILVER NITRATE APPLICATOR 1 EACH STICK..EA. TOPICAL (15:07)
[2024-03-20] MEDS: BACITRACIN OINTMENT BULK TUBE 1 APPLIC TOPICAL (15:30)
[2024-03-20 15:46] VITALS: BP 140/80; PULSE 111; RESP 16; TEMP 36; O2SAT 94
[2024-03-20 16:00] VITALS: BP 149/85; PULSE 106; RESP 16; O2SAT 96
[2024-03-20 16:15] VITALS: BP 119/79; PULSE 107; RESP 16; O2SAT 96
[2024-03-20 16:30] VITALS: BP 145/74; PULSE 105; RESP 16; O2SAT 98
--- NOTE | 2024-03-20 17:24 | SUR.PHASEII ---
1705: Patient's blood glucose 206 at 1705. Blood Glucose was 176 on arrival to [facility] in the morning. Patient denies symptoms of hyperglycemia. She states she checks her blood glucose at home in the evening and takes her insulin per her sliding scale. Patient verbalizes understanding to take her insulin as prescribed this evening and monitor her blood sugars.
== END 2024-03-20 17:22 | disposition home or self-care (01) ==
PROVIDERS: PCP Family Medicine; Visit Provider Obstetrics & Gynecology
PROC: 0UBC7ZZ Excision of Cervix, Via Natural or Artificial Opening (ICD-10-PCS; CPT 57520; principal; 2024-03-20 12:15)
DX: A63.0 Anogenital (venereal) warts (principal); N90.0 Mild vulvar dysplasia; E11.40 Type 2 diabetes mellitus with diabetic neuropathy, unspecified
CPT/HCPCS: 56515; 57420; 11421; 00400; 36415; 82565; 82962; 85018; 86850; 86900; 86901; 88305; A9270; J1100; J1885; J2250; J2405; J2704; J3010; J7120

== ENCOUNTER 2024-07-16 07:46 | Outpatient (CLI) | payer MEDICAID, SELFPAY | END 2024-07-16 07:47 | disposition home or self-care (01) | PROVIDERS: PCP Family Medicine; Referring Provider Family Medicine; Visit Provider Family Medicine | DX: E11.9 Type 2 diabetes mellitus without complications (principal); E55.9 Vitamin D deficiency, unspecified; E03.9 Hypothyroidism, unspecified; R42 Dizziness and giddiness; Z79.4 Long term (current) use of insulin | CPT/HCPCS: 80053; 80061; 82043; 82306; 82570; 82607; 84439; 84443 ==

== ENCOUNTER 2024-11-26 07:47 | Outpatient (CLI) | payer MEDICAID, SELFPAY | END 2024-11-26 07:48 | disposition home or self-care (01) | LOC: CT 07:48 | PROVIDERS: PCP Family Medicine; Visit Provider Otolaryngology | DX: J32.9 Chronic sinusitis, unspecified (principal); J32.3 Chronic sphenoidal sinusitis; J34.2 Deviated nasal septum | CPT/HCPCS: 70486 ==

== ENCOUNTER 2024-12-31 10:01 | Outpatient (CLI) | payer MEDICAID, SELFPAY | END 2024-12-31 10:02 | disposition home or self-care (01) | LOC: NFLDREF 10:05 | PROVIDERS: PCP Family Medicine; Visit Provider Family Medicine | DX: R07.9 Chest pain, unspecified (principal); R06.09 Other forms of dyspnea | CPT/HCPCS: 80048 ==

== ENCOUNTER 2025-01-06 13:39 | Outpatient (CLI) | payer MEDICAID, SELFPAY ==
[2025-01-06 14:44] VITALS: BP 152/62; PULSE 123; RESP 18
[2025-01-06] MEDS: PERFLUTREN LIPID MICROSPHERES 2 ML VIAL IVP (14:47)
--- NOTE | 2025-01-06 14:56 | W.PM.STED ---
Stress Test Note Date Date Seen: 01/06/25 Date of test: 01/06/25 Providers Primary care provider: James Land Stress test physician: Henrry Hill Stress Test Note Stress test ordered: Stress Echo Indication for test: Chest pain preoperative Stress test medicine: Definity Results discussion: This very nice lady presents for the above test after discussion the risks benefits side effects she would like to proceed pretest EKG shows normal sinus rhythm with some nonspecific ST wave changes noted laterally. Initial heart rate was 117, with blood pressure 124/76. Patient is exercised for a total time of 6 minutes, test is terminated because of fatigue and shortness of breath, she did develop some chest pain in the recovery. Maximum heart was 160 which is 115% of the target. Review of the tracing showed no evidence of ST wave changes suggestive of ischemia there is no dysrhythmias, subjectively positive, with inducement chest pain in recovery. Impression: Subjectively positive objectively negative stress echo, Follow up suggested: Await echo imaging, clinical correlation with with this this will be needed, once cardiology reviews is patient was transferred to the emergency room for serial enzymes, and further care.
== END 2025-01-06 13:40 | disposition home or self-care (01) ==
LOC: STRESS 13:40
PROVIDERS: PCP Family Medicine; Visit Provider Family Medicine
DX: R07.9 Chest pain, unspecified (principal); R06.09 Other forms of dyspnea; Z01.818 Encounter for other preprocedural examination
CPT/HCPCS: 93016; 93325; 93351; Q9957

== ENCOUNTER 2025-01-06 14:39 | Emergency (ER) | payer MEDICAID, SELFPAY ==
[2025-01-06] VITALS (16 sets, daily range): BP systolic 116–136; BP diastolic 78–79; PULSE 106–124; RESP 10–38; TEMP 36.4; O2SAT 93–99; BMI 27.6
--- NOTE | 2025-01-06 14:42 | CRLHL7_ITS ---
For Patients: As a result of the Century Cures Act, medical imaging exams and procedure reports are released immediately into your electronic medical record. You may view this report before your referring provider. If you have questions, please contact your health care provider. Indication: Chest pain Comparison: Two-view chest January 31, 2023 Technique: PA and lateral views of the chest Findings: There is no focal consolidation, effusion, or pneumothorax. The cardiomediastinal silhouette is within normal limits. The bony thorax is grossly intact. Impression: No acute cardiopulmonary abnormality. Dictated by Donte Navarro MD @ 01/06/2025 3:55:16 PM (Electronically Signed)
--- NOTE | 2025-01-06 14:44 | ED_ITS ---
HPI - Chest Pain General Date Seen: 01/06/25 <Henrry Hill MD - Last Filed: 01/08/25 08:38> Chief Complaint: Chest Pain <Henrry Hill MD - Last Filed: 01/08/25 08:38> Stated Complaint: chest pain <Henrry Hill MD - Last Filed: 01/08/25 08:38> Time Seen by Provider: 01/06/25 14:44 <Henrry Hill MD - Last Filed: 01/08/25 08:38> Source: patient, RN notes reviewed and old records reviewed <Henrry Hill MD - Last Filed: 01/08/25 08:38> Mode of arrival: ambulatory <Henrry Hill MD - Last Filed: 01/08/25 08:38> Limitations: no limitations <Henrry Hill MD - Last Filed: 01/08/25 08:38> History of Present Illness HPI narrative: Patient is a 59-year-old female who presents here for evaluation of chest pain she just underwent with myself a stress echo, with the indication of chest pain, preoperatively for her nasal surgery. She was not having chest pain before, but just after the test she developed chest pain, that was characteristic for her, maybe a little bit worse than normal. The radiate from the left side of her chest into her left shoulder did not radiate to her back was not associated with nausea vomiting, tells me that this is always been called either reflux or costochondritis but giving the setting of developing this with the stress test. I thought it was prudent that she comes over here in gets worked up in the emergency room. Patient had felt well up until this morning, she held her normal medication had a breakfast could she is diabetic. She denies any chest pain fevers chills this morning, shortness of breath she has no exertional dyspnea associated with this. And feels that she can walk any extended dizziness without chest pain she only gets chest pain when she lays down. No leg swelling, no past history of DVTs or pulmonary embolism, no family history of this or any blood dyscrasias. Review of her stress echo, showed that she got to 6 minutes, good heart rate elevation, to 115%, test is terminated because of fatigue and some mild merry rtness of breath, she only developed the chest pain when she laid down afterwards. My reviewing the techs review of the actual pictures done with definity (contrast) show no significant wall abnormality. <Henrry Hill MD - Last Filed: 01/08/25 08:38> MD complaint: chest pain <Henrry Hill MD - Last Filed: 01/08/25 08:38> Onset (ago): minute(s) <Henrry Hill MD - Last Filed: 01/08/25 08:38> Timing of current episode: constant <Henrry Hill MD - Last Filed: 01/08/25 08:38> Prior episodes: Yes <Henrry Hill MD - Last Filed: 01/08/25 08:38> Onset: during rest and during exertion <Henrry Hill MD - Last Filed: 01/08/25 08:38> Pain location: substernal and left chest <Henrry Hill MD - Last Filed: 01/08/25 08:38> Pain radiation: left shoulder <Henrry Hill MD - Last Filed: 01/08/25 08:38> Severity: moderate <Henrry Hill MD - Last Filed: 01/08/25 08:38> Quality: heaviness <Henrry Hill MD - Last Filed: 01/08/25 08:38> Relieving factors: nothing <Henrry Hill MD - Last Filed: 01/08/25 08:38> Exacerbating factors: nothing <Henrry Hill MD - Last Filed: 01/08/25 08:38> Treatment prior to arrival: none <Henrry Hill MD - Last Filed: 01/08/25 08:38> Risk Factors Coronary artery disease risk factors: diabetes and hypertension <Henrry Hill MD - Last Filed: 01/08/25 08:38> Thoracic aortic dissection risk factors: none <Henrry Hill MD - Last Filed: 01/08/25 08:38> Related Data On Oral Contraceptives: Yes <MD Silverio Barajas Last Filed: 01/08/25 08:38> Home Medications: Home Medications ?Medication ?Instructions ?Recorded ?Confirmed fluticasone propionate 50 1 spray intranasal QDAY 05/08/22 12/31/24 mcg/actuation nasal spray,suspension (Flonase Allergy Relief) Previous Rx's ?Medication ?Instructions ?Recorded omeprazole 20 mg capsule,delayed 20 mg PO QDAY #30 caps 05/25/23 release aspirin 81 mg tablet,delayed 81 mg PO QDAY #100 tabs 12/04/23 release lorazepam 1 mg tablet 1 mg PO BID PRN anxiety #30 tabs 03/18/24 acetaminophen 500 mg tablet 500 mg PO Q6H PRN pain #30 tabs 03/20/24 (Tylenol Extra Strength) ibuprofen 600 mg tablet 600 mg PO Q6H PRN 14 days #30 tabs 03/20/24 atorvastatin 10 mg tablet 10 mg PO QDAY #90 tabs 06/12/24 blood sugar diagnostic (Blood #100 ea 06/12/24 Glucose Test strips) duloxetine 60 mg capsule,delayed 60 mg PO QDAY #90 caps 06/12/24 release gabapentin 300 mg capsule 300 mg PO BID #180 caps 06/12/24 losartan 50 mg-hydrochlorothiazide 1 tab PO QDAY #90 tabs 06/12/24 12.5 mg tablet metformin 500 mg tablet,extended 1,000 mg (2 x 500 mg) PO BID #360 06/12/24 release 24 hr tabs pen needle, diabetic 32 gauge x #100 ea 06/12/24 (UltiCare Pen Needle) exenatide microspheres 2 mg/0.85 2 mg (0.85 mL) subcut QWEEK #10.2 07/15/24 mL subcutaneous auto-injector mL (Pratima Glass) levothyroxine 100 mcg tablet 100 mcg PO QDAY #90 tabs 07/25/24 insulin glargine 100 unit/mL (3 40 unit (0.4 mL) subcut QAM #15 mL 10/22/24 mL) subcutaneous pen (Lantus Solostar U-100 Insulin) lancets #200 ea 10/30/24 omeprazole 40 mg capsule,delayed 40 mg PO QDAY #30 caps 12/31/24 release semaglutide 0.25 mg or 0.5 mg (2 0.25 mg (0.368 mL) subcut QWEEK #3 12/31/24 mg/3 mL) subcutaneous pen injector mL prednisone 20 mg tablet 40 mg (2 x 20 mg) PO QDAY #10 tabs 01/07/25 <Henrry Hill MD - Last Filed: 01/08/25 08:38> Allergies/Adverse Reactions: Allergies Allergy/AdvReac Type Severity Reaction Status Date / Time codeine Allergy Intermediate Itchy, Verified 01/06/25 16:47 diaphoretic hydromorphone Allergy Intermediate Vomiting Verified 01/06/25 16:47 and itching oxycodone Allergy Intermediate Itchy, Verified 01/06/25 16:47 diaphoretic hydrocodone Allergy Unknown Itchiness Verified 01/06/25 16:47 meclizine Allergy Unknown Verified 01/06/25 16:47 morphine Allergy Unknown Itchy, Verified 01/06/25 16:47 diaphoretic Sulfa (Sulfonamide Allergy Verified 01/06/25 16:47 Antibiotics) narcotics Allergy Uncoded 01/06/25 16:47 <Henrry Hill MD - Last Filed: 01/08/25 08:38> Review of Systems Status of ROS Reports: 10 or more systems reviewed and unremarkable except as noted in History and below <Henrry Hill MD - Last Filed: 01/08/25 08:38> [facility] Medical History: Medical History Type 2 diabetes mellitus, with long-term current use of insulin ?E11.9 - Type 2 diabetes mellitus without complications (ICD-10) ?Z79.4 - jail (current) use of insulin (ICD-10) Mixed hyperlipidemia ?E78.2 - Mixed hyperlipidemia (ICD-10) Primary hypertension ?I10 - Essential (primary) hypertension (ICD-10) Anxiety and depression ?F41.9 - Anxiety disorder, unspecified (ICD-10) ?F32.A - Depression, unspecified (ICD-10) Vitamin D deficiency ?E55.9 - Vitamin D deficiency, unspecified (ICD-10) Postmenopausal atrophic vaginitis ?N95.2 - Postmenopausal atrophic vaginitis (ICD-10) Meniere's disease ?H81.09 - Meniere's disease, unspecified ear (ICD-10) 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 (11/23/12) ?M51.26 - Other intervertebral disc displacement, lumbar region (ICD-10) Diabetic neuropathy ?E11.40 - Type 2 diabetes mellitus with diabetic neuropathy, unspecified (ICD-10) Clostridioides difficile diarrhea ?A04.72 - Enterocolitis due to Clostridium difficile, not specified as recurrent (ICD-10) Amaurosis fugax of right eye ?G45.3 - Amaurosis fugax (ICD-10) Adenomatous polyp of colon ?D12.6 - Benign neoplasm of colon, unspecified (ICD-10) <Henrry Hill MD - Last Filed: 01/08/25 08:38> Surgical History: Surgical History History of thyroidectomy ?E89.0 - Postprocedural hypothyroidism (ICD-10) History of total hysterectomy with bilateral salpingo-oophorectomy (BSO) (2011) ?Z90.710 - Acquired absence of both cervix and uterus (ICD-10) ?Z90.722 - Acquired absence of ovaries, bilateral (ICD-10) ?Z90.79 - Acquired absence of other genital organ(s) (ICD-10) History of third molar tooth extraction ?K08.409 - Partial loss of teeth, unspecified cause, unspecified class (ICD- 10) History of bilateral breast reduction surgery ?Z98.890 - Other specified postprocedural states (ICD-10) <Henrry Hill MD - Last Filed: 01/08/25 08:38> Family History: Family History Sister Breast cancer, Onset Age: 66 Depression Multiple myeloma Family history of stroke or transient ischemic attack in sister Mother Depression Alcoholism Oral cancer Father Alcoholism Multiple myeloma Brother Colon cancer, Onset Age: 48 Melanoma Other Maternal family history of seizure disorder <Henrry Hill MD - Last Filed: 01/08/25 08:38> Social History: Social History Narrative: 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 involving walking- 11,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 , 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, 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 Non-smoker What is your current living situation?: I presently have a place to live Problems where you live: declined to answer In the past 12 months, utilities in danger of being shut off: no In past 12 months, lack of transportation kept you from medical appts, meetings, work, or getting things needed for daily living: no In the past 12 mos, have been you worried that your food would run out before you had money to buy more?: never true In the past 12 mos, the food you bought just didn't last and you didn't have money to buy more?: never true Smoking Status: Never smoker Do you use any of these nicotine containing products: None Second hand tobacco smoke exposure: No How often do you have a drink containing alcohol: monthly or less How many standard drinks containing alcohol do you have on a typical day: 1 or 2 How often do you have six or more drinks on one occasion: Never AUDIT-C Alcohol total score: 1 Non-prescribed substance use: denies use Caffeine: Yes How often does anyone, including family, friends and others, physically hurt you : never How often does anyone, including family, friends and others, insult or talk down to you: never How often does anyone, including family, friends and others, threaten you with harm: never How often does anyone, including family, friends and others, scream or curse at you: never Are you using contraception or practicing any form of control: No service: No <Henrry Hill MD - Last Filed: 01/08/25 08:38> Exam Narrative Exam Narrative: On examination she is in no apparent distress, she describes her pain is approximately 8/10, left side of her chest with some radiation to her left shoulder. It is pressure sensation. She is alert oriented x3 pupils equal round reactive to light there is no scleral icterus redness or TMs are normal oropharynx normal is no adenopathy anterior posterior chains, upper chest shows a scar of a previous thyroidectomy, chest is clear bilaterally no wheezing crackles noted her heart sounds are normal her abdomen is soft there is no guarding no organomegaly bowel sounds are normal no swelling of her legs, negative Homans sign moves all extremities independently and well, normal pulses, negative skin for rashes or ulcers. Neurologically intact moving her upper lower extremities with proximal and distal muscle groups that are normal. <Henrry Hill MD - Last Filed: 01/08/25 08:38> Const Vital Signs, click to edit/add: Vital Signs - 24 hr 01/06/25 14:48 01/06/25 15:06 01/06/25 15:15 Temperature 97.5 F L Pulse Rate 118 H 124 H Pulse Rate [Pulse Oximeter] 124 H Respiratory Rate 18 16 38 H Blood Pressure Blood Pressure [Right Upper Arm] 116/79 Pulse Oximetry 95 98 97 Oxygen Delivery Method Room Air 01/06/25 15:31 01/06/25 15:45 01/06/25 16:00 Temperature Pulse Rate 118 H 113 H 109 H Pulse Rate [Pulse Oximeter] Respiratory Rate 23 13 30 H Blood Pressure Blood Pressure [Right Upper Arm] Pulse Oximetry 95 93 96 Oxygen Delivery Method 01/06/25 16:03 01/06/25 16:15 01/06/25 16:30 Temperature Pulse Rate 109 H 107 H 108 H Pulse Rate [Pulse Oximeter] Respiratory Rate 18 13 24 Blood Pressure 136/78 Blood Pressure [Right Upper Arm] Pulse Oximetry 96 95 97 Oxygen Delivery Method 01/06/25 16:45 01/06/25 17:01 01/06/25 17:15 Temperature Pulse Rate 109 H 116 H 108 H Pulse Rate [Pulse Oximeter] Respiratory Rate 13 25 H 10 L Blood Pressure Blood Pressure [Right Upper Arm] Pulse Oximetry 97 99 99 Oxygen Delivery Method 01/06/25 17:30 01/06/25 17:45 01/06/25 18:00 Temperature Pulse Rate 109 H 106 H 106 H Pulse Rate [Pulse Oximeter] Respiratory Rate 13 11 L 12 Blood Pressure Blood Pressure [Right Upper Arm] Pulse Oximetry 97 96 97 Oxygen Delivery Method 01/06/25 18:15 Temperature Pulse Rate 106 H Pulse Rate [Pulse Oximeter] Respiratory Rate 17 Blood Pressure Blood Pressure [Right Upper Arm] Pulse Oximetry 94 Oxygen Delivery Method <Henrry Hill MD - Last Filed: 01/08/25 08:38> Vital Signs - 24 hr 01/06/25 14:48 01/06/25 15:06 01/06/25 15:15 Temperature 97.5 F L Pulse Rate 118 H 124 H Pulse Rate [Pulse Oximeter] 124 H Respiratory Rate 18 16 38 H Blood Pressure Blood Pressure [Right Upper Arm] 116/79 Pulse Oximetry 95 98 97 Oxygen Delivery Method Room Air 01/06/25 15:31 01/06/25 15:45 01/06/25 16:00 Temperature Pulse Rate 118 H 113 H 109 H Pulse Rate [Pulse Oximeter] Respiratory Rate 23 13 30 H Blood Pressure Blood Pressure [Right Upper Arm] Pulse Oximetry 95 93 96 Oxygen Delivery Method 01/06/25 16:03 01/06/25 16:15 01/06/25 16:30 Temperature Pulse Rate 109 H 107 H 108 H Pulse Rate [Pulse Oximeter] Respiratory Rate 18 13 24 Blood Pressure 136/78 Blood Pressure [Right Upper Arm] Pulse Oximetry 96 95 97 Oxygen Delivery Method 01/06/25 16:45 01/06/25 17:01 01/06/25 17:15 Temperature Pulse Rate 109 H 116 H 108 H Pulse Rate [Pulse Oximeter] Respiratory Rate 13 25 H 10 L Blood Pressure Blood Pressure [Right Upper Arm] Pulse Oximetry 97 99 99 Oxygen Delivery Method 01/06/25 17:30 01/06/25 17:45 01/06/25 18:00 Temperature Pulse Rate 109 H 106 H 106 H Pulse Rate [Pulse Oximeter] Respiratory Rate 13 11 L 12 Blood Pressure Blood Pressure [Right Upper Arm] Pulse Oximetry 97 96 97 Oxygen Delivery Method 01/06/25 18:15 Temperature Pulse Rate 106 H Pulse Rate [Pulse Oximeter] Respiratory Rate 17 Blood Pressure Blood Pressure [Right Upper Arm] Pulse Oximetry 94 Oxygen Delivery Method <Bryce Aviles MD - Last Filed: 01/06/25 21:31> Documenting provider has reviewed patient's vital signs: yes <Henrry Hill MD - Last Filed: 01/08/25 08:38> Course Vital Signs Vital signs: Initial Vital Signs Temperature 97.5 F L 01/06/25 14:48 Temperature Source Temporal Artery Scan 01/06/25 14:48 Pulse Rate 124 H 01/06/25 14:48 Respiratory Rate 18 01/06/25 14:48 Blood Pressure 116/79 01/06/25 14:48 Blood Pressure Mean 91 01/06/25 14:48 Blood Pressure Position Sitting 01/06/25 14:48 Pulse Oximetry 95 01/06/25 14:48 Oxygen Delivery Method Room Air 01/06/25 14:48 Vital Signs Temperature 97.5 F L 01/06/25 14:48 Pulse Rate 124 H 01/06/25 14:48 Respiratory Rate 18 01/06/25 14:48 Blood Pressure 116/79 01/06/25 14:48 Pulse Oximetry 95 01/06/25 14:48 Oxygen Delivery Method Room Air 01/06/25 14:48 Temperature 97.5 F L 01/06/25 14:48 Pulse Rate 106 H 01/06/25 18:15 Respiratory Rate 17 01/06/25 18:15 Blood Pressure 136/78 01/06/25 16:03 Pulse Oximetry 94 01/06/25 18:15 Oxygen Delivery Method Room Air 01/06/25 14:48 <Henrry Hill MD - Last Filed: 01/08/25 08:38> Initial Vital Signs Temperature 97.5 F L 01/06/25 14:48 Temperature Source Temporal Artery Scan 01/06/25 14:48 Pulse Rate 124 H 01/06/25 14:48 Respiratory Rate 18 01/06/25 14:48 Blood Pressure 116/79 01/06/25 14:48 Blood Pressure Mean 91 01/06/25 14:48 Blood Pressure Position Sitting 01/06/25 14:48 Pulse Oximetry 95 01/06/25 14:48 Oxygen Delivery Method Room Air 01/06/25 14:48 Vital Signs Temperature 97.5 F L 01/06/25 14:48 Pulse Rate 124 H 01/06/25 14:48 Respiratory Rate 18 01/06/25 14:48 Blood Pressure 116/79 01/06/25 14:48 Pulse Oximetry 95 01/06/25 14:48 Oxygen Delivery Method Room Air 01/06/25 14:48 Temperature 97.5 F L 01/06/25 14:48 Pulse Rate 106 H 01/06/25 18:15 Respiratory Rate 17 01/06/25 18:15 Blood Pressure 136/78 01/06/25 16:03 Pulse Oximetry 94 01/06/25 18:15 Oxygen Delivery Method Room Air 01/06/25 14:48 <Bryce Aviles MD - Last Filed: 01/06/25 21:31> Medications Administered Medications: Discontinued Medications Generic Name Dose Route Start Last Admin Trade Name Freq PRN Reason Stop Dose Admin Aspirin 324 mg 01/06/25 14:42 01/06/25 15:11 Aspirin 81 Mg Tab.Chew PO 01/06/25 14:43 324 mg ONCE ONE Administration Sodium Chloride 1,000 mls @ 1,000 mls/hr 01/06/25 15:15 01/06/25 16:41 0.9 % Sodium Chloride 1000 Ml IV 01/06/25 16:14 Infused .Q1H SUZY Infusion Lidocaine/Aluminum/Magnesium/Simeth 30 ml 01/06/25 16:31 01/06/25 16:46 Gi Cocktail (Visc Lido/Antacid) 30 Ml PO 01/06/25 16:32 30 ml ONCE ONE Administration <Henrry Hill MD - Last Filed: 01/08/25 08:38> Discontinued Medications Generic Name Dose Route Start Last Admin Trade Name Ilda PRN Reason Stop Dose Admin Aspirin 324 mg 01/06/25 14:42 01/06/25 15:11 Aspirin 81 Mg Tab.Chew PO 01/06/25 14:43 324 mg ONCE ONE Administration Sodium Chloride 1,000 mls @ 1,000 mls/hr 01/06/25 15:15 01/06/25 16:41 0.9 % Sodium Chloride 1000 Ml IV 01/06/25 16:14 Infused .Q1H SUZY Infusion Lidocaine/Aluminum/Magnesium/Simeth 30 ml 01/06/25 16:31 01/06/25 16:46 Gi Cocktail (Visc Lido/Antacid) 30 Ml PO 01/06/25 16:32 30 ml ONCE ONE Administration <Byrce Aviles MD - Last Filed: 01/06/25 21:31> MDM - Chest Pain MDM Narrative Medical decision making narrative: During the evaluation of this patient I considered multiple differential diagnosis is. The life-threatening differential diagnosis include coronary disease/NH, pulmonary embolism, pneumothorax, pneumonia, and aortic dissection. Other differential diagnosis included but were not limited to pericarditis, myocarditis, chest wall pain, GERD, esophageal rupture, rib fracture contusion, pleurisy, as well as other etiologies. I discussed with her we will bring her in we will do a couple sets of troponins to rule out any significant issues associated with this we will do a D-dimer chest x-ray, we will give her some aspirin, I have a lower suspicion even though that her risk factors are noted. Her heart score gives are low score. This of course is pending her troponin. She is signed over to Dr. Aviles [facility] ER physician after discussion with her. She did decline use of a GI cocktail, or other pain medication <Henrry Hill MD - Last Filed: 01/08/25 08:38> During the evaluation of this patient I considered multiple differential diagnosis is. The life-threatening differential diagnosis include coronary disease/NH, pulmonary embolism, pneumothorax, pneumonia, and aortic dissection. Other differential diagnosis included but were not limited to pericarditis, myocarditis, chest wall pain, GERD, esophageal rupture, rib fracture contusion, pleurisy, as well as other etiologies. I discussed with her we will bring her in we will do a couple sets of troponins to rule out any significant issues associated with this we will do a D-dimer chest x-ray, we will give her some aspirin, I have a lower suspicion even though that her risk factors are noted. Her heart score gives are low score. This of course is pending her troponin. She is signed over to Dr. Stefan juarez ER physician after discussion with her. She did decline use of a GI cocktail, or other pain medication Stefan -- received this patient at change of shift following evolution of chest pain in the setting of stress test. Apparently completed stress test to satisfactory point and there were no otherwise concerning findings on preliminary assessment. Underlying history is noted of costochondritis. Initial troponin is negative. Have a repeat EKG now 2 showing a sinus tachycardia at 107 and by my read looks to be unchanged from prior. D-dimer is negative. Pending yet is proBNP and repeat troponin With a flare of pain I went to speak with Janet. EKG at that time looks to be unchanged as noted. She does report that she has been having fairly persistent left-sided chest pain with intermittent flares up into the left neck and radiating to her left arm over the last couple of months. This is some of what she is feeling today. Unrelated to movement of her neck or shoulders or breathing but does seem to improve historically a little bit she reports when she goes to sit up as I am sitting her up a little bit in the exam bed. This might suggest pericarditis otherwise. No evidence on EKG During our conversation she has a sudden apparent spasm of pain and hunches forward in discomfort. Speaking as though it hurts. Saw this a little bit as I enter the room prior. She says she has not really been seen for this as when she has been seen similar complaints it is thought to be costochondritis or GERD. Would be willing however try GI cocktail. Palpation about the neck and chest and back does not reproduce any discomfort. Neither does neck motion. There is no pulsatile mass. Raising her arms overhead does not elicit more discomfort. She has strong and equal radial pulses. D-dimer is normal as noted but I suppose is possible there is some aneurysmal spread or dissection regardless. In agreement with Dr. Hill I think it is unlikely this is cardiac event. Might be esophageal spasm of some sort presenting atypically. Will move toward CT imaging of her chest to assess vasculature. I see that in her visits more recently no CT imaging of her chest has been done. GI cocktail effect is pending. GI cocktail without effect. Still with some discomfort. Final EKG independently reviewed by me again looks to be unchanged. Rate of [address] images of chest. Overall reassuring. Radiology over-read below INDICATION: .INTERMITTENT FLARES, LT SIDE CHEST PAIN, RADIATING TO LT ARM TECHNIQUE: CT chest was acquired with 75 cc Isovue 370 IV contrast. COMPARISON: None. FINDINGS: Lungs and Airways: No mass or consolidation. No endoluminal lesion. Heart and Mediastinum: Thyroidectomy. No axillary or supraclavicular lymphadenopathy. No mediastinal, hilar or retrocrural lymphadenopathy. Normal heart size. Normal caliber aorta. Coronary artery calcifications. Pleura: The pleural spaces are normal. Abdomen: The visualized upper abdominal organs are unremarkable. Bones and soft tissues: Old subscapularis left-sided tear versus lipoma. IMPRESSION: 1. No acute process. No mass or consolidation. 2. No imaging findings to explain the reported clinical symptoms. Please note that all CT scans at this facility use dose modulation, iterative reconstruction, and/or weight-based dosing when appropriate to reduce radiation dose to as low as reasonably achievable. Dictated by Bryce Ruiz MD @ 01/06/2025 5:31:25 PM I suppose it is possible there could be some other vascular spasming or intramammary vasculature that could be irritated. It is not reproducible to manipulation of the chest wall. Only thing that seems to change this discomfort when it comes is sitting upright although she admits that it still present in this position. Could be anginal equivalent however preliminary stress test was reassuring. Does have an upcoming ENT procedure but could have a few days of NSAIDs in the meantime which would be preference particularly for considering pericarditis although even this seems unlikely. I did discussed potential benefit of prednisone though not preferred in the setting of pericarditis. Will trial NSAIDs for a few days and then she will have prednisone available if necessary. See patient discharge plan for further discussion Pending yet are formal reviews of your stress test but so far I understand them to look reassuring. Reassuring also are your labs and imaging. As long as you are taking your Pepcid, I would consider taking 600 mg of ibuprofen 3 times daily maybe with a little food or alternatively 325 mg of naproxen 2 times daily, for the next 3 days. With recommendations to not take an NSAID within 2 weeks of upcoming procedure; I understand you have an ENT procedure on the . If you are not feeling notable relief, would consider than going to prednisone 40 mg daily for 5 days which I am expecting will be acceptable by your ENT physician. Prescribing prednisone from [facility] so that you may have some on hand if you need. Return for increasing and persistent chest pain particularly associated with shortness of breath, lightheadedness. <Bryce Aviles MD - Last Filed: 01/06/25 21:31> Differential Diagnosis Differential diagnosis: Likely fracture of rib, pneumothorax, stable angina, unstable angina pectoris, atypical chest pain, st elevation myocardial infarction, costochondritis, chest pain and biliary colic <Henrry Hill MD - Last Filed: 01/08/25 08:38> Medical Records Data Attestation: I reviewed the patient's medical records. <Henrry Hill MD - Last Filed: 01/08/25 08:38> Lab Data Labs: Lab Results 01/06/25 01/06/25 01/06/25 Range/Units 15:00 15:13 17:38 WBC 10.06 (4.50-11.00) K/uL RBC 4.44 (4.00-5.20) m/uL Hgb 12.5 (12.0-16.0) gm/dL Hct 38.4 (33.0-51.0) % MCV 87 (80-100) fL MCH 28 (26-34) pg MCHC 33 (32-36) gm/dL RDW Coeff of Jovani 12.2 (11.5-15.5) % Plt Count 410 (140-440) K/uL Neut % (Auto) 59.5 (42.0-72.0) % Lymph % (Auto) 33.2 (20-44) % [place] % (Auto) 4.7 (0.0-11.0) % Eos % (Auto) 2.0 (0.0-7.0) % Baso % (Auto) 0.4 (0.0-3.0) % Neut # (Auto) 5.99 (1.7-7.0) K/uL Lymph # (Auto) 3.34 H (0.90-2.90) K/uL [place] # (Auto) 0.50 (0.00-0.90) K/UL Eos # (Auto) 0.20 (0.00-0.50) K/uL Baso # (Auto) 0.04 (0.00-0.30) K/uL Abs Immat Gran (auto) 0.02 (0.00-0.30) K/uL Imm/Tot Granulo (auto) 0.2 % INR 0.93 (0.91-1.10) APTT 26 (23-33) Seconds D-Dimer Quant (PE/DVT) < 0.27 (0.00-0.50) ug/ml Sodium 137 (135-149) mmol/L Potassium 4.0 (3.6-5.1) mmol/L Chloride 98 (96-114) mmol/L Carbon Dioxide 18 L (20-32) mmol/L Anion Gap 21 H (7-15) mEq/L BUN 26 (7-30) mg/dL Creatinine 1.4 (0.5-1.5) mg/dL Estimated Creat Clear 33.05 Estimated GFR 44 ml/min Glucose 138 H (60-115) mg/dL Calcium 9.7 (8.4-10.6) mg/dL NT-Pro-B Natriuret Pep 42 pg/mL POC Glucose 133 H (60-115) mg/dl POC Troponin I 0.00 L 0.00 L (0.01-0.04) ng/ml <Henrry Hill MD - Last Filed: 01/08/25 08:38> Lab Results 01/06/25 01/06/25 01/06/25 Range/Units 15:00 15:13 17:38 WBC 10.06 (4.50-11.00) K/uL RBC 4.44 (4.00-5.20) m/uL Hgb 12.5 (12.0-16.0) gm/dL Hct 38.4 (33.0-51.0) % MCV 87 (80-100) fL MCH 28 (26-34) pg MCHC 33 (32-36) gm/dL RDW Coeff of Jovani 12.2 (11.5-15.5) % Plt Count 410 (140-440) K/uL Neut % (Auto) 59.5 (42.0-72.0) % Lymph % (Auto) 33.2 (20-44) % [place] % (Auto) 4.7 (0.0-11.0) % Eos % (Auto) 2.0 (0.0-7.0) % Baso % (Auto) 0.4 (0.0-3.0) % Neut # (Auto) 5.99 (1.7-7.0) K/uL Lymph # (Auto) 3.34 H (0.90-2.90) K/uL [place] # (Auto) 0.50 (0.00-0.90) K/UL Eos # (Auto) 0.20 (0.00-0.50) K/uL Baso # (Auto) 0.04 (0.00-0.30) K/uL Abs Immat Gran (auto) 0.02 (0.00-0.30) K/uL Imm/Tot Granulo (auto) 0.2 % INR 0.93 (0.91-1.10) APTT 26 (23-33) Seconds D-Dimer Quant (PE/DVT) < 0.27 (0.00-0.50) ug/ml Sodium 137 (135-149) mmol/L Potassium 4.0 (3.6-5.1) mmol/L Chloride 98 (96-114) mmol/L Carbon Dioxide 18 L (20-32) mmol/L Anion Gap 21 H (7-15) mEq/L BUN 26 (7-30) mg/dL Creatinine 1.4 (0.5-1.5) mg/dL Estimated Creat Clear 33.05 Estimated GFR 44 ml/min Glucose 138 H (60-115) mg/dL Calcium 9.7 (8.4-10.6) mg/dL NT-Pro-B Natriuret Pep 42 pg/mL POC Glucose 133 H (60-115) mg/dl POC Troponin I 0.00 L 0.00 L (0.01-0.04) ng/ml <Bryce Aviles MD - Last Filed: 01/06/25 21:31> ECG Data Attestation: I personally reviewed and interpreted this ECG as follows: <Henrry Hill MD - Last Filed: 01/08/25 08:38> ECG interpretation date: 01/06/25 <Henrry Hill MD - Last Filed: 01/08/25 08:38> Interpretation: EKG is reviewed just shows the mild sinus tachycardia at 1:14 a.m., her QRS is 70 milliseconds her QT is 346 are QTC is [address] wave nonspecific abnormalities noted laterally, and inferiorly, that were seen on the previous EKGs and also her stress echo she underwent. Assessment: Sinus tachycardia with nonspecific changes. <Henrry Hill MD - Last Filed: 01/08/25 08:38> Discharge Plan Discharge Clinical Impression: Atypical chest pain <Henrry Hill MD - Last Filed: 01/08/25 08:38> Patient Disposition: Home, Self-Care <Henrry Hill MD - Last Filed: 01/08/25 08:38> Condition: Stable <Henrry Hill MD - Last Filed: 01/08/25 08:38> Additional Instructions: Pending yet are formal reviews of your stress test but so far I understand them to look reassuring. Reassuring also are your labs and imaging. As long as you are taking your Pepcid, I would consider taking 600 mg of ibuprofen 3 times daily maybe with a little food or alternatively 325 mg of naproxen 2 times daily, for the next 3 days. With recommendations to not take an NSAID within 2 weeks of upcoming procedure; I understand you have an ENT procedure on the . If you are not feeling notable relief, would consider than going to prednisone 40 mg daily for 5 days which I am expecting will be acceptable by your ENT physician. Prescribing prednisone from [facility] so that you may have some on hand if you need. Return for increasing and persistent chest pain particularly associated with shortness of breath, lightheadedness. <Henrry Hill MD - Last Filed: 01/08/25 08:38> Prescriptions: No Action insulin glargine [Lantus Solostar U-100 Insulin] 100 unit/mL (3 mL) insulin pen 40 unit subcut QAM Qty: 15 12RF omeprazole 40 mg capsule,delayed release(DR/EC) 40 mg PO QDAY Qty: 30 2RF semaglutide 0.25 mg or 0.5 mg (2 mg/3 mL) pen injector 0.25 mg subcut QWEEK Qty: 3 0RF Rx Instructions: for 4 weeks lorazepam 1 mg tablet 1 mg PO BID PRN (Reason: anxiety) Qty: 30 0RF duloxetine 60 mg capsule,delayed release(DR/EC) 60 mg PO QDAY Qty: 90 3RF gabapentin 300 mg capsule 300 mg PO BID Qty: 180 3RF losartan-hydrochlorothiazide 50-12.5 mg tablet 1 tab PO QDAY Qty: 90 3RF metformin 500 mg tablet extended release 24 hr 1,000 mg PO BID Qty: 360 3RF Rx Instructions: Fill when needed (DME) pen needle, diabetic [UltiCare Pen Needle] 32 gauge x 5/32 needle See Rx Instructions .Route Qty: 100 5RF Rx Instructions: Use Daily As directed (DME) Blood Glucose Test Strip See Rx Instructions .Route Qty: 100 5RF Rx Instructions: Tests BID atorvastatin 10 mg tablet 10 mg PO QDAY Qty: 90 3RF ibuprofen 600 mg tablet 600 mg PO Q6H PRN14 Days Qty: 30 0RF acetaminophen [Tylenol Extra Strength] 500 mg tablet 500 mg PO Q6H PRN (Reason: pain) Qty: 30 0RF fluticasone propionate [Flonase Allergy Relief] 50 mcg/actuation spray,suspension 1 spray intranasal QDAY Rx Instructions: administer into each nostril omeprazole 20 mg capsule,delayed release(DR/EC) 20 mg PO QDAY Qty: 30 2RF aspirin 81 mg tablet,delayed release (DR/EC) 81 mg PO QDAY Qty: 100 3RF Bydureon BCise 2 mg/0.85 mL auto-injector 2 mg subcut QWEEK Qty: 10.2 3RF levothyroxine 100 mcg tablet 100 mcg PO QDAY Qty: 90 1RF (DME) lancets Misc See Rx Instructions .Route Qty: 200 0RF Rx Instructions: Two times a day testing Please dispense what is covered by pt's insurance., prednisone 20 mg tablet 40 mg PO QDAY Qty: 10 0RF <Henrry Hill MD - Last Filed: 01/08/25 08:38> Follow Up/Referrals: James Land MD [Primary Care Provider] - <Henrry Hill MD - Last Filed: 01/08/25 08:38> Stand Alone Forms: My[facility] Info Instructions <Henrry Hill MD - Last Filed: 01/08/25 08:38>
[2025-01-06 15:06] LABS: Basophils Absolute Auto 0.04 K/uL (0.00-0.30); Basophils Percent Auto 0.4 % (0.0-3.0); Hematocrit 38.4 % (33.0-51.0); Hemoglobin* 12.5 gm/dL (12.0-16.0); Immature Granulocytes Abs Auto 0.02 K/uL (0.00-0.30); Immature Granulocytes Pct Auto 0.2 %; Lymphocytes Absolute Auto 3.34 K/uL (0.90-2.90); Lymphocytes Percent Auto 33.2 % (20-44); Mean Corpuscular HGB Conc 33 gm/dL (32-36); Mean Corpuscular Hemoglobin 28 pg (26-34); Mean Corpuscular Volume 87 fL (80-100); Monocytes Percent Auto 4.7 % (0.0-11.0); Neutrophils Absolute Auto 5.99 K/uL (1.7-7.0); Neutrophils Percent Auto 59.5 % (42.0-72.0); Platelet Count* 410 K/uL (140-440); RDW Coefficient of Variation % 12.2 % (11.5-15.5); Red Blood Count 4.44 m/uL (4.00-5.20); White Blood Count* 10.06 K/uL (4.50-11.00)
[2025-01-06] MEDS: ASPIRIN 81 MG TAB.CHEW 324 MG PO (15:11)
[2025-01-06 15:12] LABS: Slide Review Reflex No
[2025-01-06 15:20] LABS: Glucose, Point-of-Care* 133 mg/dl (60-115)
[2025-01-06 15:30] LABS: Chloride* 98 mmol/L (96-114)
[2025-01-06 15:31] LABS: Sodium* 137 mmol/L (135-149)
[2025-01-06 15:33] LABS: Blood Urea Nitrogen* 26 mg/dL (7-30); Creatinine* 1.4 mg/dL (0.5-1.5); Est. Creatinine Clearance* 33.05; Estimated Glomerular Filt Rate 44 ml/min
[2025-01-06 15:34] LABS: Anion Gap 21 mEq/L (7-15); Calcium* 9.7 mg/dL (8.4-10.6); Carbon Dioxide* 18 mmol/L (20-32); Glucose* 138 mg/dL (60-115)
[2025-01-06] MEDS: 0.9 % SODIUM CHLORIDE 1000 ml 1,000 ML IV (15:36)
[2025-01-06 15:47] LABS: INR 0.93 (0.91-1.10); Prothrombin Time 13.3 Seconds
[2025-01-06 15:48] LABS: Partial Thromboplastin Time* 26 Seconds (23-33)
[2025-01-06 15:51] LABS: D Dimer Quantitative* < 0.27 ug/ml (0.00-0.50)
--- NOTE | 2025-01-06 16:31 | CRLHL7_ITS ---
For Patients: As a result of the Century Cures Act, medical imaging exams and procedure reports are released immediately into your electronic medical record. You may view this report before your referring provider. If you have questions, please contact your health care provider. INDICATION: .INTERMITTENT FLARES, LT SIDE CHEST PAIN, RADIATING TO LT ARM TECHNIQUE: CT chest was acquired with 75 cc Isovue 370 IV contrast. COMPARISON: None. FINDINGS: Lungs and Airways: No mass or consolidation. No endoluminal lesion. Heart and Mediastinum: Thyroidectomy. No axillary or supraclavicular lymphadenopathy. No mediastinal, hilar or retrocrural lymphadenopathy. Normal heart size. Normal caliber aorta. Coronary artery calcifications. Pleura: The pleural spaces are normal. Abdomen: The visualized upper abdominal organs are unremarkable. Bones and soft tissues: Old subscapularis left-sided tear versus lipoma. IMPRESSION: 1. No acute process. No mass or consolidation. 2. No imaging findings to explain the reported clinical symptoms. Please note that all CT scans at this facility use dose modulation, iterative reconstruction, and/or weight-based dosing when appropriate to reduce radiation dose to as low as reasonably achievable. Dictated by Bryce Ruiz MD @ 01/06/2025 5:31:25 PM (Electronically Signed)
--- OUTSIDE RECORDS SUMMARY | 2025-01-06 16:35 | XMS_ITS | Clinical Summary ---
Author Organization [facility] Address [address] [place] [address] Care Team Providers Care User Experience Lead Name Role Phone Unavailable Primary Care Provider Unavailabl e Source Comments Patient records contain information from all sites at [facility]. For routine questions regarding patient records, call [phone] during business hours, M-F 8:00 AM - 5:00 PM Central Time. Record requests for emergency care only can be directed to [phone] at any time.[facility] Allergies Active Allergy Reactions Criticality Noted Date Comments Codeine Itching 04/22/2012 Hydrocodone-Acetaminoph en Hives (Reselect Reaction) 10/29/2009 Gets itchy Meclizine Itching 09/13/2023 Minocycline Other (see comments),Itching 07/04/2023 Morphine Itching 04/22/2012 Oxycodone Itching,Headache Low 09/18/2023 Oxycodone-Acetaminophen Itching 09/18/2023 Shellfish Containing Products Other (see comments) 07/04/2023 My throat gets itchy and a raw feeling Sulfa (Sulfonamide Antibiotics) Hives (Reselect Reaction),Itching,Ra sh 02/07/2007 Medications atorvastatin (LIPITOR) 10 mg tablet Take 10 mg by mouth at bedtime. 3 Active buPROPion XL (WELLBUTRIN XL) 150 mg 24 hr tablet Take 150 mg by mouth daily. Takes with 300 mg for a total of 450 mg 3 Active DULoxetine (CYMBALTA) [address] capsule Take 60 mg by mouth daily. 3 Active estradioL (ESTRACE) 0.5 mg tablet Take 0.5 mg by mouth daily. 3 Active fluticasone propionate (FLONASE) 50 mcg/actuation nasal spray Administer 1 spray into each nostril daily. 5 Active gabapentin (NEURONTIN) 300 mg capsule Take 300 mg by mouth 2 (two) times a day. 7 Active LORazepam (ATIVAN) 0.5 mg tablet Take 0.5 mg by mouth every 6 (six) hours as needed for anxiety (and muscle pain/spasms). 6 Active metFORMIN (GLUCOPHAGE) 500 mg tablet Take 1,000 mg by mouth 2 (two) times a day with meals. 7 Active omeprazole (PriLOSEC) [address] capsule Take 20 mg by mouth every morning before breakfast. 3 Active blood sugar diagnostic strips Dispense test strips covered by the patient insurance. Test 3 times per day. 6 Active insulin detemir U-100 (LEVEMIR FlexPen) 100 unit/mL (3 mL) injection Inject 40 Units under the skin every evening. 3 Active Bydureon BCise 2 mg/0.85 mL auto-injector Inject under the skin over 168 hr. SUNDAY OR Sunday 3 Active aspirin [address] tablet Take 1 tablet by mouth daily. 6 Active levothyroxine (SYNTHROID, LEVOTHROID) 112 mcg tablet Take 1 tablet (112 mcg total) by mouth every morning before breakfast. 90 tablet 3 4 Active Active Problems Problem Noted Date Diagnosed Date Goiter Multinodular Nontoxic 09/19/2023 Diabetes Mellitus Type 2 With Other Complication 09/18/2023 Nodule Thyroid 06/26/2023 Family History Medical History Relation Name Comments Colon cancer Brother 1 Lung cancer Brother 1 Other cancer Brother 1 Liver Alcohol abuse Brother 2 Levon Melanoma Brother 2 Levon Other cancer Brother 2 Levon Alcohol abuse Father Dad Diabetes Father Dad Other cancer Father Dad Multi Meloma Prostate cancer Father Dad Skin cancer Father Dad Alcohol abuse Maternal Grandfather Grandma Coronary artery disease Maternal Grandfather Grandma Alcohol abuse Mother Mom Anxiety disorder Mother Mom Arthritis Mother Mom Colon polyps Mother Mom Dementia Mother Mom Depression Mother Mom Other cancer Mother Mom Oral Cancer Seizures Mother Mom Alcohol abuse Mother's Brother Lizandro Alcohol abuse Mother's Sister Audrey Alcohol abuse Sister 1 Tatiana Anxiety disorder Sister 1 Tatiana Breast cancer Sister 1 Tatiana Depression Sister 1 Tatiana Migraines Sister 1 Tatiana Other cancer Sister 1 Tatiana Stroke Sister 1 Tatiana Transient ischemic attack Sister 1 Tatiana Other cancer Sister 2 Tiff Multi meloma Rheum arthritis Sister 2 Tiff Relation Name Status Comments Brother 1 Brother 2 Levon Father Dad Maternal Grandfather Grandma Mother Mom Mother's Brother Lizandro Mother's Sister Audrey Sister 1 Tatiana Sister 2 Tiff Social History Tobacco Use Types Packs/Day Years Used Date Smoking Tobacco: Never Passive Smoke Exposure: Never Smokeless Tobacco: Never Alcohol Use Standard Drinks/Week Comments Yes 0 (1 standard drink = 0.6 oz pur e alcohol) Socially [facility] [employer] Answer Date Recorded In the past 12 months has [facility] [employer] gas, oil, or water [employer] threatened to shut off services in your home? No 09/18/2023 Humiliation, Afraid, Rape, and Kick questionnair e Answer Date Recorded Within the last year, have y ou been afraid of your partner or ex-partner? No 09/18/2023 Within the last year, have y ou been humiliated or emotionally abused in other ways by your partner or ex-partner? No Within the last year, have y ou been kicked, hit, slapped, or otherwise physically hurt by your partner or ex-partner? No 09/18/2023 Within the last year, have y ou been raped or forced to have any kind of sexual activity by your partner or ex-partner? No 09/18/2023 Overall Financial Resource Strain (CARDIA) Answe r Date Recorded How hard is it for you to pa y for the very basics like food, housing, medical care, and heating? Not hard at all 09/12/2023 Exercise Vital Sign Answer Date Recorde d On average, how many days pe r week do you engage in moderate to strenuous exercise (like a brisk walk)? 3 days 09/12/2023 On average, how many minutes do you engage in exercise at this level? 30 min 09/12/2023 Hunger Vital Sign Answer Date Recorded Within the past 12 months, y ou worried that your food would run out before you got the money to buy more. Never true 09/12/20 Within the past 12 months, t he food you bought just didn't last and you didn't have money to get more. Never true 09/12/2023 PRAPARE - Transportation Answer Date Re corded In the past 12 months, has l ack of transportation kept you from medical appointments or from getting medications? No 08/31 In the past 12 months, has l ack of transportation kept you from meetings, work, or from getting things needed for daily living? No 09/12/2023 Nutrition Answer Date Recorded Nutrition: EVOO Fat Source Unknown 09/12 On average, how many serving s of fruits and vegetables do you eat per day (serving size is equal to 1 cup or approximately the size of a tennis ball)? 3-5 09/12/2023 Dental Answer Date Recorded Dental: Regular Dentist No 09/12/20 Employment Answer Date Recorded Employment status Employed and actively working without restrictions 09/12/2023 Housing Stability Answer Date Recorded What is your living situation today? 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 Legal Sex Female 2:56 PM CDT Gender Identity Female 09/11/2023 4:39 PM [employer] OPER[employer] Sexual Orientation Straight 09/11/2023 4: 39 PM [employer] OPERATOR Last Filed Vital Signs Vital Sign Reading Time Taken Comments Blood Pressure 160/99 11/15/2023 10:01 AM [employer] OPERATOR Pulse 106 11/15/2023 10:01 AM [employer]INE OPERATOR Temperature 36.5 C (97.7 F) 09/19/2023 1:00 PM [employer]INE OPERATOR Respiratory Rate 18 09/19/2023 1:00 PM [employer]INE OPERATOR Oxygen Saturation 93% 09/19/2023 1:00 PM [employer]INE OPERATOR Inhaled Oxygen Concentration - - Weight 68.5 kg (151 lb 0.2 oz) 11/15/2023 10:01 AM [employer]INE OPERATOR Height 155.5 cm (5' 1.22) 11/15/2023 10:[address] Body Mass Index 28.33 11/15/2023 10:01 AM [employer]INE OPERATOR Plan of Treatment Health Maintenance Due Date Last Done Comments CT Colonography 1966 Cologuard 1966 Colonoscopy 1966 Colorectal Cancer Surveillance 1966 Creatinine Level (Kidney Function Test) 1966 Diabetic Office Visit with Foot Exam 1966 Dilated Eye Exam 1966 HIV Screening 1966 Hemoglobin A1C 1966 Hepatitis C Screening 1966 Lipid (Cholesterol) Screening 1966 Mammogram 1966 Urine Albumin 1966 Pneumococcal vaccine (50+ years) (1 of 2 - PCV) 1985 Zoster Vaccines (1 of 2) 2016 DTaP,Tdap,and Td Vaccines (2 - Td or Tdap) 09/28/2021 09/28/2011, 03/25/2007 Office Visit for Blood Pressure Check / Re-check 02/13/2024 11/15/2023 COVID-19 Vaccine ( season) 2024 09/27/2021, 12/11/2020, 11/20/2020 Influenza Vaccine (#1) 2024 , 07/20/2020, 07/13/2020, Additional history exists Depression Screening (Annual PHQ-2) 10/01/2024 Thyroid Stimulating Hormone (TSH) test for thyroid function 11/15/2024 11/15/2023, 09/17/2023 Hepatitis B Vaccines Completed 07/20/2006, 12/20/2005, 11/21/2005 IPV Vaccines Aged Out No longer eligi ble based on patient's age to complete this topic Medical Devices Implanted Type Area Strap Cutting Machine Operator Device Identifier Shelf Expiration Date Model / Serial / Lot Clp Hrzn Ti 6 Clp Abelardo - [id number] Implanted:Qty : 1 on 09/18/2023 by Azam Bashir M.D. at [facility] Hardware e.g. pins/screws/ rods N/A: [employer] [id number] / / Clp Hrzn Ti 6 Baldev Heller Abelardo - [id number] Implanted:Qty : 1 on 09/18/2023 by Azam Bashir M.D. at [facility] Hardware e.g. pins/screws/ rods N/A: [employer] [id number] / / Clp Hrzn Ti 6 Clp Sm Red - [id number] Implanted:Qty : 1 on 09/18/2023 by Azam Bashir M.D. at [facility] Hardware e.g. pins/screws/ rods N/A: [employer] [id number] / / Clp Hrzn Ti 6 Clp Sm Red - [id number] Implanted:Qty : 1 on 09/18/2023 by Azam Bashir M.D. at [facility] Hardware e.g. pins/screws/ rods N/A: [employer] [id number] / / Clp Hrzn Ti 6 Clp Sm Red - [id number] Implanted:Qty : 1 on 09/18/2023 by Azam Bashir M.D. at [facility] Hardware e.g. pins/screws/ rods N/A: [employer] [id number] 05/01/2027 [id number] / / [id number] Clp Hrzn Ti 6 Clp Md Abelardo - [id number] Implanted:Qty : 1 on 09/18/2023 by Azam Bashir M.D. at [facility] Hardware e.g. pins/screws/ rods N/A: [employer] [id number] 03/26/[id number] / / [id number] Clp Hrzn Ti 6 Clp Sm Red - [id number] Implanted:Qty : 1 on 09/18/2023 by Azam Bashir M.D. at [facility] Hardware e.g. pins/screws/ rods N/A: [employer] [id number] 03/26/[id number] / / [id number] Clp Hrzn Ti 6 Clp Sm Red - [id number] Implanted:Qty : 1 on 09/18/2023 by Azam Bashir M.D. at [facility] Hardware e.g. pins/screws/ rods N/A: [employer] [id number] 04/01/2028 [id number] / / [id number] Clp Hrzn Ti 6 Clp Abelardo - [id number] Implanted:Qty : 1 on 09/18/2023 by Azam Bashir M.D. at [facility] Hardware e.g. pins/screws/ rods N/A: [employer] [id number] 03/26/2028 [id number] / / [id number] Procedures Procedure Name Priority Date/Time Associated Diagnosis Comments THYROID-STIMULATIN G HORMONE-SENSITIVE (S-TSH) Routine 11/15/2023 8:12 AM [employer] OPERATOR Hypothyroidism Postsurgical from Last 3 Months or Most Recently Relevant to Health Maintenance Results * S-TSH (Thyroid-Stimulating Hormone - Sensitive) (11/15/2023 8:12 AM [employer]ACHINE OPERATOR) TSH, Sensitive 0.4 0.3 - 4.2 mIU/L 11/15/2023 9:45 AM [employer]ACHINE OPERATOR DTL Blood (Blood, Venous) 11/15/2023 8:12 AM [employer]MER MACHINE OPERATOR 11/15/2023 8:56 AM [employer] MACHINE OPERATOR Susy Emery APRN, C.N.P., D.N.P. LAB BLO OD ADD-ON Final Result [facility] [address] [place] [address], [facility] [address] [place] [address] from Last 3 Months or Most Recently Relevant to Health Maintenance Insurance [facility] Advance Directives For more information, please contact: [phone] * Full Code (Latest Code Status on File) Date Activated Date Inactivated Comments 09/18/2023 8:06 PM 09/19/2023 3:36 PM Question Answer Comments Full Code: Discussed * Full Code Date Activated Date Inactivated Comments 09/18/2023 1:33 PM 09/18/2023 8:06 PM Question Answer Comments Full Code: Discussed
--- OUTSIDE RECORDS SUMMARY | 2025-01-06 16:35 | XMS_ITS | Clinical Summary ---
Author Organization [facility] Address [address] [place] [address] Care Team Providers Care Flight Attendant Name Role Phone Bryce Fallon MD Primary Care Provider Allergies Active Allergy Reactions Criticality Noted Date Comments Sulfa Antibiotics Hives,Itching 05/29/2023 Medications metFORMIN (GLUCOPHAGE) 500 MG tablet Take 1,000 mg by mouth 2 times daily (with meals) Active gabapentin (NEURONTIN) 300 MG capsule Take 300 mg by mouth 2 times daily Active Social History Tobacco Use Types Packs/Day Years Used Date Smoking Tobacco: Never Assessed Adolescent Education Answer Date Record ed Getting School Help Needed Not on file 07/02 Comments Unknown Sex and Gender Information Value Date Recorded Sex Assigned at Female 05/28/2023 8:27 PM CDT Legal Sex Female 4:47 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 Gender Identity Female 05/28/2023 8:27 PM CDT Sexual Orientation Not on file Last Filed Vital Signs Vital Sign Reading Time Taken Comments Blood Pressure 171/103 05/29/2023 2:43 PM CDT Pulse 118 05/29/2023 2:43 PM CDT Temperature - - Respiratory Rate 16 05/29/2023 2:12 PM CDT Oxygen Saturation 94% 05/29/2023 2:43 PM CDT Inhaled Oxygen Concentration - - Weight - - Height - - Body Mass Index - - Plan of Treatment Health Maintenance Due Date Last Done Comments ADVANCE CARE PLANNING 1965 ANNUAL REVIEW OF HM ORDERS 1966 CT COLONOGRAPHY 1966 DIABETES SCREENING 1966 FIT 1966 FLEX SIG 1966 MAMMO SCREENING 1966 sDNA (Cologuard) 1966 YEARLY PREVENTIVE VISIT 1969 COLONOSCOPY 1976 COLORECTAL CANCER SCREENING 1976 HIV SCREENING 1981 HEPATITIS C SCREENING 1984 PAP 1987 LIPID 2006 Pneumococcal Vaccine: 50+ Years (1 of 1 - PCV) 2016 ZOSTER IMMUNIZATION (1 of 2) 2016 DTAP/TDAP/TD IMMUNIZATION (2 - Td or Tdap) 09/28/2021 09/28/2011, 03/25/2007, 03/25/2007, Additional history exists COVID-19 Vaccine ( season) 2024 09/27/2021, 12/11/2020, 11/20/2020 INFLUENZA VACCINE (#1) 2024 , 07/20/2020, 07/13/2020, Additional history exists PHQ-2 (once per calendar year) 2024 HEPATITIS B IMMUNIZATION Completed 006, 12/20/2005, 11/21/2005 HPV IMMUNIZATION Aged Out No longer e ligible based on patient's age to complete this topic MENINGITIS IMMUNIZATION Aged Out No l onger eligible based on patient's age to complete this topic Insurance [facility] Care Teams Flight Attendant Relationship Specialty Start Date End Date Bryce Fallon MD [facility] [address] [place] [address] PCP - General Family Medicine 05/21/23
--- OUTSIDE RECORDS SUMMARY | 2025-01-06 16:35 | XMS_ITS | Clinical Summary ---
Author Organization [facility] Address [address] [place] [address] Care Team Providers Care Mercerizing Range Controller Name Role Phone Josephine Velazquez MD Primary Care Prov ider Daisy Garcia RD Unavailable [phone] Allergies Active Allergy Reactions Criticality Noted Date Comments Codeine Itching 04/22/2012 Hydrocodone-Acetaminoph en Hives 10/29/2009 Gets itchy Meclizine Itching Minocycline Itching,Diaphoresis 07/04/2023 Morphine Itching 04/22/2012 Oxycodone-Acetaminophen Itching 04/22/2012 Shellfish Containing Products Other - Describe In Comment Field 07/04/2023 My throat gets itchy and a raw feeling Sulfa (Sulfonamide Antibiotics) Rash,Hives,Itching 02/07/2007 Medications blood-glucose meter As directed. Dispense glucose meter, test strips and lancets covered by the patient insurance. Test 3 times per day. 1 Device 0 12/24/19 13 Active Blood Sugar Diagnostic Kit As directed. unable to use prior dispensed blood sugar jori due to size and hand size 1 Kit 1 01/29/20 13 Active fluticasone (50 mcg per actuation) nasal solution (FLONASE)Indicat ions:Sinus pain Inhale 1 [place] into both nostrils once daily. 3 Bottle 4 07/12/20 15 Active lancets (ACCU-CHEK MULTICLIX LANCET)Indicatio ns:Type 2 diabetes mellitus without complication, without long-term current use of insulin (HC) As directed. Test 3 times per day. 100 Each 3 06/09/20 16 Active blood sugar diagnostic (ACCU-CHEK SMARTVIEW TEST STRIP) stripIndications :Type 2 diabetes mellitus without complication, without long-term current use of insulin (HC) Dispense test strips covered by the patient insurance. Test 3 times per day. 100 Each 11 06/09/20 16 Active LORazepam (ATIVAN) 0.5 mg tabIndications:A nxiety Take 1 tablet by mouth every 6 hours if needed. 2 tablet 0 06/15/20 16 Active aspirin enteric coated (ECOTRIN) 325 mg tabletIndication s:Amaurosis fugax of right eye Take 1 tablet by mouth once daily with a meal. 0 06/28/20 16 Active metFORMIN (GLUCOPHAGE) 500 mg tabletIndication s:Diabetes mellitus without complication (HC) TAKE 2 TABLETS BY MOUTH 2 TIMES DAILY WITH MEALS 60 tablet 03/05/20 17 Active Additional Information Patient taking differently: 500 mgOral TWICE DAILY WITH MEALS,Two tablets in the morning, two tablets in the pm, Reported on 06/26/2023 gabapentin (NEURONTIN) 300 mg capsuleIndicatio ns:Neuropathy TAKE ONE CAPSULE BY MOUTH TWO TIMES DAILY 60 capsule 07/06/20 17 Active ARJUN PEN NEEDLE 32 gauge x 5/32Indications :Type 2 diabetes mellitus without complication, without long-term current use of insulin (HC) USE DIRECTED FOR ADMINISTERING INSULIN AT HOME 300 Each 2 09/18/20 18 Active omeprazole (PRILOSEC) 20 mg Delayed-Release capsule Take 20 mg by mouth once daily before a meal. 05/25/20 23 Active DULoxetine (CYMBALTA) 60 mg Delayed-release capsule Take 60 mg by mouth once daily. 04/27/20 23 Active atorvastatin (LIPITOR) 10 mg tablet Take 10 mg by mouth at bedtime. 05/25/20 23 Active Bydureon BCise 2 mg/0.85 mL subcutaneous auto-injector Inject subcutaneous once weekly. 05/30/20 23 Active insulin detemir U-100 (Levemir FlexTouch U100 Insulin) 100 unit/mL (3 mL) penIndications:T ype 2 diabetes mellitus without complication, without long-term current use of insulin (HC) Inject 40 units subcutaneous before bedtime. 06/26/20 23 Active buPROPion (WELLBUTRIN XL) 150 mg Extended-Release tabletIndication s:Adjustment disorder with mixed anxiety and depressed mood Take 1 Tablet (150 mg) by mouth once daily. Take with the 300 mg for total daily dose of 450 mg 90 Tablet 09/21/20 23 Active estradioL (ESTRACE) 0.5 mg tabletIndication s:Hot flashes due to menopause Take 1 Tablet (0.5 mg) by mouth once daily. 90 Tablet 09/21/20 23 Active buPROPion (WELLBUTRIN XL) 300 mg Extended-Release tabletIndication s:Adjustment disorder with mixed anxiety and depressed mood Take 1 Tablet (300 mg) by mouth once daily. Take with the 150 mg for total daily dose of 450 mg. 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 08/11/2013 Vitamin D deficiency 03/20/2013 Neuropathy 03/13/2013 Lumbar radiculopathy 10/21/2012 Adjustment disorder with mixed anxiety and depre ssed mood 04/19/2011 Eczema 09/05/2010 Hypertrophy of breast 02/07/2010 Dizziness and giddiness 05/04/2008 Overweight(278.02) 04/20/2008 Meniere's disease, unspecified 03/25/2007 Overview (03/25/2007): Likely early onset, dizziness, ringing in ear Allergic rhinitis, cause unspecified 03/25/2007 Overview (03/25/2007): Cats, mold, ragweed Type II or unspecified type diabetes mellitus without mention of complication, not stated as uncontrolled 01/29/2006 Resolved Problems Problem Noted Date Diagnosed Date Resolved Date Unspecified essential hypertension 05/04/2008 09/05/2010 Dysthymic disorder 09/06/2007 2 Adjustment disorder with mix ed anxiety and depressed mood 09/06/2007 04/22/2012 Displacement of lumbar inter vertebral disc without myelopathy 02/28/2007 10/06/2013 Lumbago 10/06/2013 Encounters Date Type Department Care Team Description 01/06/2025 2:00 PM CDT Ancillary Procedure [facility] [address] [place] [address] Arrived from Last 3 Months Immunizations Immunization Administration Dates Next Due AMB Influenza, IIV3 (Age >=3 years)(Flu Clinic Only) 07/21/2010 AMB Influenza, IIV4 PF (=>6 mos Flulaval,Fluzone Fluarix)(Flu Clinic Only) 08/20/2014 HepA-HepB (Twinrix) 07/20/2006,12/20/2005,2005 Influenza, IIV3 (Age >=3 years) 08/27/20 13,06/27/2012,09/28/2011,2008,08/02/2007,07/07/2006 Influenza, IIV4 07/04/2021, 0,07/13/2020,2017,07/13/2017,07/17/2016,08/27/2013,0 06/27/2012,09/28/2011,07/21/2010, 009,08/02/2007 Influenza, IIV4 (=>6mos) MDV 07/13/2020 Td (Age >=7 Years) 11/05/1996 Td, Preservative Free (age > = 7 Years) 03/25/2007 Tdap 09/28/2011 Tuberculin (PPD) 07/02/2012 Family History Medical History Relation Name Comments Cancer-colon Brother 4 Trery 1/2 brother barron gnosed age 52 Cancer Brother 5 Levon melanoma Cancer Father skin from multipe myeloma Cancer-prostate Father Diabetes Father Stroke Maternal Aunt 1 age 40 Cancer Maternal Aunt 2 , ibrahima wel Alcohol/Drug Maternal Grandfather ETOH Cancer Maternal Grandfather lung Cancer Maternal Grandmother stomach Cancer Maternal Uncle 1 stomach Mot hers twin Heart Disease Maternal Uncle 2 u nder age 60 - 3 Alcohol/Drug Mother ETOH Arthritis Mother Cancer Mother oral cancer Hyperlipidemia Mother Osteoporosis Mother Other Mother blindness, and deafness due to crainal surgery Psychiatric illness Mother depressi on Seizures Mother on medication f or treatment Cancer-prostate Paternal Grandfather Arthritis Sister 4 GI Disease Sister 5 ulcers Psychiatric illness Sister 6 depressi on Seizures Sister 7 on medications for aura's Cancer-breast Sister 8 Tatiana Heart Disease Sister 8 Tatiana [place] Stroke Sister 8 Tatiana TIA's, age 48 Other Sister 9 Ear - hearing d isturbance due to degeneration of ear bones Arthritis Sister 10 Cancer Sister 11 Tiff bone multiple m yeloma Hyperlipidemia Sister 11 Tiff Arthritis Sister 12 Relation Name Status Comments Brother 1 Alive 1/2 sib Brother 2 Alive 1/2 sib Brother 3 (Age 41) 1/2 sib Ca ncer melanoma chest with spread Brother 4 Brother 5 Levon Father Alive Maternal Aunt 1 Maternal Aunt 2 Maternal Grandfather Maternal Grandmother Maternal Uncle 1 Maternal Uncle 2 Mother Alive Paternal Grandfather Sister 1 Alive 1/2 sib bone/bl ood multimyeloma cancer Sister 2 Alive 1/2 sib Sister 3 Alive 1/2 sib Sister 4 Sister 5 Sister 6 Sister 7 Sister 8 Tatiana Sister 9 Sister 10 Sister 11 Tiff Sister 12 Social History Tobacco Use Types Packs/Day Years Used Date Smoking Tobacco: Never Smokeless Tobacco: Never Tobacco Cessation:Counseling Given: Yes Alcohol Use Standard Drinks/Week Comments Not Currently 1 (1 standard drink = 0.6 oz pure alcohol) once a month, maybe one or two drinks PHQ-2 Answer Date Recorded PHQ-2 TOTAL SCORE 0 09/26/2023 Social Connections Answer Date Recorded Frequency of Communication with Friends and Fami ly 4 07/04/2023 Financial Resource Strain Answer Date R ecorded Difficulty of Paying Living Expenses 3 07/04/2023 Difficulty of Paying Living Expenses Not on file 07/04/2023 Food Insecurity Answer Date Recorded Worried About Running Out of Food in the Last Ye ar 1 07/04/2023 Transportation Needs Answer Date Record ed Lack of Transportation (Medical) 1 07/04/2023 Housing Stability Answer Date Recorded Unable to Pay for Housing in the Last Year 1 07/04/2023 Comments No Sex and Gender Information Value Date Recorded Sex Assigned at Not on file Legal Sex Female 5:23 AM LENS EDGER Gender Identity Not on file Sexual Orientation Not on file Obstetrics History Para Term AB IAB SAB Ectopic Multiple Livin g Live Births 0 0 0 Comments Adopted son [place] Last Filed Vital Signs Vital Sign Reading Time Taken Comments Blood Pressure 180/90 08/08/2023 7:28 PM LENS EDGER Pulse 102 08/08/2023 7:28 PM LENS EDGER Temperature 36.3 C (97.3 F) 08/08/2023 6:05 PM LENS EDGER Respiratory Rate 18 08/08/2023 7:28 PM LENS EDGER Oxygen Saturation 98% 08/08/2023 7:28 PM LENS EDGER Inhaled Oxygen Concentration - - Weight 69.9 kg (154 lb) 08/08/2023 6:05 PM LENS EDGER Height 154.9 cm (5' 1) 07/04/2023 11:07 AM CDT Body Mass Index 29.1 07/04/2023 11:07 AM CDT Plan of Treatment Health Maintenance Due Date Last Done Comments HIV for age 15-65 1981 Hepatitis C screening for ag e 18-79 1984 Pneumococcal series for age 50+ (1 of 2 - PCV) 1985 Zoster (shingles) series for age 50+ (1 of 2) 2016 Mammogram for age 45-75 05/26/2017 05/26/20 16, 03/04/2013, 08/24/2009, Additional history exists BMI (ht and wt on same day) for age 18+ 06/28/2017 06/28/2016, 06/09/2016, 03/18/2016, Additional history exists Colonoscopy through age 75 10/03/2018 10/03/2013, Lipids for age 45-75 05/26/2021 05/26/2016, 07/12/2015, 12/08/2014, Additional history exists Tetanus booster 09/28/2021 09/28/2011, 03/02, 11/05/1996 COVID-19 vaccine series ( season) 2024 09/27/2021, 12/11/2020, 11/20/2020 Depression screening for age 12+ 09/26/2024 09/26/2023, 09/05/2023, 07/26/2023, Additional history exists Influenza Vaccine (Season Ended) 2025 07/04/2021, 07/20/2020, 07/13/2020, Additional history exists Tdap Completed 09/28/2011 Procedures Procedure Name Priority Date/Time Associated Diagnosis Comments ECHO STRESS EXERCISE W CONTRAST Routine 01/06/2025 2:35 PM CDT Preprocedural examination XR MAMMO BILAT SCREEN FFDM (IA) Routine 05/26/2016 8:48 AM CDT Visit for screening mammogram LIPID PANEL W REFLEX MEASURED LDL Routine 05/26/2016 8:15 AM CDT Diabetes mellitus without complication (HC) from Last 3 Months or Most Recently Relevant to Health Maintenance Results * ECHO STRESS EXERCISE W CONTRAST (01/06/2025 2:35 PM CDT) AORTIC VALVE MEAN PG 9 mmHg LVEDD 3.5 cm EJECTION FRACTION 60 - 65% Anatomical Region Laterality Modality Ultrasound 01/06/2025 1:55 PM CDT Narrative 01/06/2025 3:10 PM CDT STRESS ECHOCARDIOGRAM JANET LOJA : 1965 59 years Study Date: 01/06/2025 1:55:09 PM Gender: F BP: 124/76 mmHg Height: 155.00 cm BSA: 1.69 m Weight: 70.00 kg Tech: [facility] Referring MD: JAMES LAND Site: [facility] Reading Location: Mobile-OP Patient Location: Outpatient. Procedure: Stress Echo, Color Doppler, Contrast and Limited Spectral Doppler. Domo stress echo. Indication for study: Chest Pain Cardiac Rhythm: Regular.Study quality: Fair. Final Impressions: 1. Maximum stress test with 97.9% of age predicted maximum heart rate achieved. 2. During stress exam the patient developed shortness of breath and chest pain. 3. See separate report for EKG interpretation. 4. Post stress, decreased left ventricular size, increased global systolic function with an estimated EF of >75%. 5. Echo contrast was administered to enhance visualization of all left ventricular segments. 6. Negative stress echo for ischemia. HR Systolic Diastolic Baseline 93 bpm 124 76 mmHg Peak 158 bpm 146 54 mmHg Max Pred HR 161 % of Max 98% Double Product [id number] Echo Findings:This is a negative stress echo test for ischemia. Post stress, decreased left ventricular size, increased global systolic function with an estimated EF of >75%. LV regional wall motion abnormalities are not present post exercise. EKG:See separate report for EKG interpretation. Exam Protocol:The patient presents with no significant symptoms at baseline. Maximum stress test with 97.9% of age predicted maximum heart rate achieved. The blood pressure response was normal. The patient developed shortness of breath and chest pain during the stress exam. Low (less than 1% annual mortality rate) non invasive risk stratification. Chamber Sizes and Function Normal left ventricular size, normal global systolic function with an estimated EF of 60 - 65%. LV regional wall motion abnormalities are not present. Right ventricular cavity size is normal, global systolic RV function is normal. Valves, RV Pressures and Diastolic Function The aortic valve is normal in structure and trileaflet, no stenosis and no regurgitation. The mitral valve is normal in structure, no mitral regurgitation. The tricuspid valve is normal in structure and not evident tricuspid regurgitation. Tricuspid regurgitation is not evident. MEASUREMENTS AND CALCULATIONS 2-D Measurements and LV Function: LVID (d) 3.5 cm LV FS% (2D) 50 % LVID (s) 1.7 cm LVOT diameter 2.2 cm IVS (d) 1.0 cm HR 93 bpm LVPW (d) 1.1 cm Ao Sinus 3.3 cm Aortic Valve: Vmax 1.8 m/s NICKIE (V) 3.16 cm VTI 0.29 m NICKIE (I) 2.75 cm LVOT V max 1.5 m/s Max PG 12 mmHg LVOT VTI 0.21 m Mean PG 9 mmHg SV 78 ml Dim Index 0.74 SV index 46 ml/m Contrast documentation: 7 ml ml diluted Definity, lot #[id number] was administered peripherally to enhance visualization of all left ventricular segments. . This study was interpreted by an IAC accredited facility. CC: [facility] ([facility]) [facility]. Final Procedure Note Sonu Lyon MD - 01/06/2025 STRESS ECHOCARDIOGRAM JANET LOJA : 1965 59 years Study Date: 01/06/2025 1:55:09 PM Gender: F BP: 124/76 mmHg Height: 155.00 cm BSA: 1.69 m Weight: 70.00 kg Tech: [facility] Referring MD: JAMES LAND Site: [facility] Reading Location: Mobile-OP Patient Location: Outpatient. Procedure: Stress Echo, Color Doppler, Contrast and Limited SpectralDoppler. Domo stress echo. Indication for study: Chest Pain Cardiac Rhythm: Regular.Study quality: Fair. Final Impressions: 1. Maximum stress test with 97.9% of age predicted maximum heart rateachieved. 2. During stress exam the patient developed shortness of breath and chestpain. 3. See separate report for EKG interpretation. 4. Post stress, decreased left ventricular size, increased globalsystolic function with an estimated EF of >75%. 5. Echo contrast was administered to enhance visualization of all leftventricular segments. 6. Negative stress echo for ischemia. HR Systolic Diastolic Baseline 93 bpm 124 76 mmHg Peak 158 bpm 146 54 mmHg Max Pred HR 161 % of Max 98% Double Product [id number] Echo Findings:This is a negative stress echo test for ischemia. Poststress, decreased left ventricular size, increased global systolicfunction with an estimated EF of >75%. LV regional wall motionabnormalities are not present post exercise. EKG:See separate report for EKG interpretation. Exam Protocol:The patient presents with no significant symptoms atbaseline. Maximum stress test with 97.9% of age predicted maximum heartrate achieved. The blood pressure response was normal. The patientdeveloped shortness of breath and chest pain during the stress exam. Low(less than 1% annual mortality rate) non invasive risk stratification. Chamber Sizes and Function Normal left ventricular size, normal global systolic function with anestimated EF of 60 - 65%. LV regional wall motion abnormalities are notpresent. Right ventricular cavity size is normal, global systolic RVfunction is normal. Valves, RV Pressures and Diastolic Function The aortic valve is normal in structure and trileaflet, no stenosis and noregurgitation. The mitral valve is normal in structure, no mitralregurgitation. The tricuspid valve is normal in structure and not evidenttricuspid regurgitation. Tricuspid regurgitation is not evident. MEASUREMENTS AND CALCULATIONS 2-D Measurements and LV Function: LVID (d) 3.5 cm LV FS% (2D) 50 % LVID (s) 1.7 cm LVOT diameter 2.2 cm IVS (d) 1.0 cm HR 93 bpm LVPW (d) 1.1 cm Ao Sinus 3.3 cm Aortic Valve: Vmax 1.8 m/s NICKIE (V) 3.16 cm VTI 0.29 m NICKIE (I) 2.75 cm LVOT V max 1.5 m/s Max PG 12 mmHg LVOT VTI 0.21 m Mean PG 9 mmHg SV 78 ml Dim Index 0.74 SV index 46 ml/m Contrast documentation: 7 ml ml diluted Definity, lot #[id number] wasadministered peripherally to enhance visualization of all left ventricularsegments. . This study was interpreted by an IAC accredited facility. CC: [facility] (med records) [facility]. Final us James Land MD ECHO ORD Final Result * XR MAMMO BILAT SCREEN FFDM (05/26/2016 8:48 AM CDT) Anatomical Region Laterality Modality BREASTS, Breast Left, Breast Right Bilateral Mammography Impressions 05/26/2016 12:16 PM CDT There is no radiographic evidence for malignancy. Recommend annual mammograms. A lay language report of this examination will be provided to the patient. MAMMOGRAM ASSESSMENT: ACR 2 Benign Narrative 05/26/2016 12:16 PM CDT XR MAMMO BILAT SCREEN FFDM [G0202.0] CLINICAL HISTORY: This is an asymptomatic 51 y.o. patient. INDICATION FOR EXAM: Mammogram Screening. TECHNIQUE: CC & MLO views were obtained. This digital study was evaluated with the assistance of Computer-Aided Detection. COMPARISON FILMS: Yes 03/04/13 [facility] 08/24/09 [facility] FINDINGS: Mammographically, the breast tissue has scattered fibroglandular densities. No suspicious masses or microcalcifications. Benign appearing calcifications within both breasts, Benign appearing mass(es) within both breasts and Post treatment changes within both breasts. Josephine Velazquez MD MAMMO Fi nal Result * (ABNORMAL) LIPID PANEL W REFLEX MEASURED LDL (05/26/2016 8:15 AM CDT) CHOLESTEROL,TOTAL 175 100 - 199 mg/dL 05/26/2016 9:32 AM CDT [facility] TRIGLYCERIDES 211(H) <150 mg/dL 05/26/2016 9:32 AM CDT [facility] HDL CHOLESTEROL 47 >40 mg/dL 05/26/2016 9:32 AM CDT [facility] NON-HDL CHOLESTEROL 128 <145 mg/dl 05/26/2016 9:32 AM CDT [facility] CHOL/HDL RATIO 3.72 <4.50 05/26/2016 9:32 AM CDT [facility] LDL CHOLESTEROL 86 <=130 mg/dL 05/26/2016 9:32 AM CDT [facility] PATIENT STATUS FASTING 05/26/2016 9:32 AM CDT [facility] Blood BLOOD SPECIMEN / Unknown Butterfly / Unknown 05/26/2016 8:15 AM CDT 05/26/2016 8:15 AM CDT Josephine Velazquez MD CHEMISTRY Fi nal Result [facility] [address] [place] [address], from Last 3 Months or Most Recently Relevant to Health Maintenance Insurance [facility] Advance Directives * Full Code (Latest Code Status on File) Date Activated Date Inactivated Comments 02/07/2010 6:01 AM 02/08/2010 4:56 PM Care Teams Mercerizing Range Controller Relationship Specialty Start Date End Date Josephine Velazquez MD [address] [place] [place] [address] PCP - General 01/10/[address] [place] [address] Product Strategy Director Nutrition 01/26/15
[2025-01-06] MEDS: GI COCKTAIL (VISC LIDO/ANTACID) 30 ML PO (16:46)
[2025-01-06 17:08] LABS: NT Pro B Type NatriureticPept* 42 pg/mL
== END 2025-01-06 18:27 | disposition home or self-care (01) ==
PROVIDERS: Emergency Provider Family Medicine; PCP Family Medicine
DX: R07.89 Other chest pain (principal)
CPT/HCPCS: 36415; 71046; 71260; 80048; 82947; 83880; 84484; 85025; 85379; 85610; 85730; 93005; 94761; 96360; 99284; 99285; A9270; J7030; Q9967

== ENCOUNTER 2025-02-25 09:01 | Outpatient (CLI) | payer MEDICAID, SELFPAY | END 2025-02-25 09:02 | disposition home or self-care (01) | LOC: NFLDREF 09:01 | PROVIDERS: PCP Family Medicine; Visit Provider Family Medicine | DX: E11.65 Type 2 diabetes mellitus with hyperglycemia (principal); Z79.4 Long term (current) use of insulin; Z79.85 Long-term (current) use of injectable non-insulin antidiabetic drugs | CPT/HCPCS: 80048 ==

== ENCOUNTER 2025-03-27 06:25 | Day surgery (SDC) | payer MEDICAID, SELFPAY ==
[2025-03-27] VITALS (15 sets, daily range): BP systolic 93–130; BP diastolic 64–80; PULSE 98–118; RESP 14–18; TEMP 36.3–36.7; O2SAT 96–100; BMI 28.7
[2025-03-27] MEDS: LACTATED RINGERS 1000 ML 1,000 ML 100 ML IV (06:35)
[2025-03-27] MEDS: OXYMETAZOLINE 0.05% NASAL SPRAY 2 SPRAY NOSTRIL-B (07:17)
[2025-03-27] MEDS: BUPIVACAINE 0.5%/EPINEPHRINE 0.9 MG (30.9 ML) INJECTION (08:19)
[2025-03-27] MEDS: MUPIROCIN 1 GM PACKET 1 APPLIC TOPICAL (08:19)
[2025-03-27] MEDS: COCAINE HCL 4 % 4 ML SOLUTION NOSTRIL-B (08:19)
--- NOTE | 2025-03-27 08:20 | P.ANES_ITS ---
Anesthesia Charges Start Date/Time Anesthesia Start Date: 03/27/25 Anesthesia Start Time: 07:35 Stop Date/Time Anesthesia Stop Date: 03/27/25 Anesthesia Stop Time: 08:18 Coding CPT Codes CPT Codes: ANESTH NOSE/SINUS SURGERY - 11538 ([id number]) P3 - PATIENT W/SEVERE SYS DISEASE, QK - COUNTER INTELLIGENCE AGENT 2-4 CNCRNT ANES PROC, QX - CLIENT SUPPORT ANALYST SVC W/ MD MED DIRECTION
--- NOTE | 2025-03-27 08:20 | W.ANESCHARGE ---
Anesthesia Charges Start Date/Time Anesthesia Start Date: 03/27/25 Anesthesia Start Time: 07:35 Stop Date/Time Anesthesia Stop Date: 03/27/25 Anesthesia Stop Time: 08:18 Coding CPT Codes CPT Codes: ANESTH NOSE/SINUS SURGERY - 95697 ([id number]) P3 - PATIENT W/SEVERE SYS DISEASE, QK - EARLY CHILDHOOD ASSISTANT 2-4 CNCRNT ANES PROC, QX - PIE CRIMPING MACHINE OPERATOR SVC W/ MD MED DIRECTION
--- NOTE | 2025-03-27 09:12 | P.ANES_ITS ---
Anesthesia Charges Start Date/Time Anesthesia Start Date: 03/27/25 Anesthesia Start Time: 07:35 Stop Date/Time Anesthesia Stop Date: 03/27/25 Anesthesia Stop Time: 08:18 Coding CPT Codes CPT Codes: ANESTH NOSE/SINUS SURGERY - 16627 ([id number]) QK - MANGLE TENDER 2-4 CNCRNT ANES PROC, QX - LEGAL RESEARCHER SVC W/ MD MED DIRECTION, P3 - PATIENT W/SEVERE SYS DISEASE
--- NOTE | 2025-03-27 09:12 | W.ANESCHARGE ---
Anesthesia Charges Start Date/Time Anesthesia Start Date: 03/27/25 Anesthesia Start Time: 07:35 Stop Date/Time Anesthesia Stop Date: 03/27/25 Anesthesia Stop Time: 08:18 Coding CPT Codes CPT Codes: ANESTH NOSE/SINUS SURGERY - 69484 ([id number]) QK - SECURITY TECHNICIAN 2-4 CNCRNT ANES PROC, QX - SIDE PANEL PADDER SVC W/ MD MED DIRECTION, P3 - PATIENT W/SEVERE SYS DISEASE
[2025-03-27] MEDS: ACETAMINOPHEN 325 MG TABLET PO (09:30)
--- NOTE | 2025-03-27 10:08 | W.PM.ENTPROC ---
Procedure Note Date of procedure: 03/27/25 Procedure: Preop diagnosis chronic left sphenoid sinusitis, deviated septum, bilateral inferior middle turbinate hypertrophy Postoperative diagnosis same plus inspissated mucus left sphenoid sinus Procedure endoscopic left sphenoidotomy with tissue removal, nasal septoplasty, submucous partial resection inferior turbinates Under general trach anesthesia patient was prepped draped usual fashion. Note that the image guidance system and 0 degree endoscopy reused throughout the procedure The nose was decongested and injected. Incision was made the septal mucosa anterior to the left area 4 impaction. The mucosa on either side of the impaction was elevated and the impaction removed. A single piece was trimmed returned to intraseptal space. A stab incision was made in the anterior of the right inferior turbinate a tunnel created with a Minna dissector. A conservative anterior submucous resection was performed the Coblation was used to cauterize any bleeding and to intramurally cautery intramural cautery was performed along the inferior 10%. This was repeated on the left side in identical fashion. The left middle turbinate was crushed with the [place] forceps. The image guidance system was used to enter the sphenoid sinus. A 8 mm antrostomy was created. A moderate amount of inspissated old mucus was removed with an up-biting ethmoid. Specimens were sent to pathology. Merocel packing was placed along the septal flaps on each side. The patient was explained the operating taken recovery satisfactory condition. Blood loss was less than 10 mL. Surgeon: Noah Gallego MD
== END 2025-03-27 10:40 | disposition home or self-care (01) ==
PROVIDERS: PCP Family Medicine; Visit Provider Otolaryngology
PROC: (CPT 30520; principal; 2025-03-27 07:45)
DX: J32.3 Chronic sphenoidal sinusitis (principal); J34.2 Deviated nasal septum; J34.3 Hypertrophy of nasal turbinates; K21.9 Gastro-esophageal reflux disease without esophagitis; I10 Essential (primary) hypertension; E11.40 Type 2 diabetes mellitus with diabetic neuropathy, unspecified; Z79.84 Long term (current) use of oral hypoglycemic drugs; Z79.4 Long term (current) use of insulin; Z79.85 Long-term (current) use of injectable non-insulin antidiabetic drugs
CPT/HCPCS: 31288; 30520; 30140; 00160; 82962; A9270; J0330; J1100; J2405; J2704; J3010; J7120

== ENCOUNTER 2025-04-15 07:53 | Outpatient (CLI) | payer MEDICAID, SELFPAY ==
--- NOTE | 2025-04-15 08:00 | CRLHL7_ITS ---
For Patients: As a result of the Century Cures Act, medical imaging exams and procedure reports are released immediately into your electronic medical record. You may view this report before your referring provider. If you have questions, please contact your health care provider. Indication: CHRONIC SINUSITIS, 3 WEEKS POST OP SINUS SURGERY, HEADACHES, LEFT SIDED FACIAL NUMBNESS Technique: CT of the paranasal sinuses without contrast. Coronal and sagittal reformatted images. Bone and soft tissue algorithms. Comparison: CT 11/26/2024. Findings: Frontal sinuses: The frontal sinuses remain clear.. Ethmoid air cells: New moderate opacification of the left posterior ethmoid air cells. The left anterior and right anterior and posterior ethmoid air cells remain clear. Symmetric depths of the olfactory fossa. The anterior ethmoidal arteries are well-covered by bone. Sphenoid sinuses: Interval postop changes of left sphenoidotomy. There is similar moderate polypoid mucosal thickening and inspissated secretions in the left sphenoid sinus. No optic canal or carotid canal dehiscence. Maxillary sinuses: The maxillary sinuses are clear. The osteomeatal units are clear. Nasal cavity: Rightward deviation of the nasal septum. No lizette bullosa. No paradoxical turbinates. Skullbase, maxilla, TMJ: No lytic or blastic osseous lesions. No periapical tooth lucencies. Mastoid air cells are clear. Incidental small left maxillary oroantral fistula (series 6 image 54). Mild cerumen in the right external ear canal. Orbital contents: Unremarkable Imaged intracranial contents: Unremarkable Imaged soft tissues structures: Unremarkable IMPRESSION: 1. Interval postop changes of left sphenoidotomy. There is persistent moderate polypoid mucosal thickening and inspissated secretions in left sphenoid sinus. 2. New moderate opacification of the left posterior ethmoid air cells. Otherwise the paranasal sinuses remain clear. 3. Rightward deviation of the nasal septum. 4. 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 Please note that all CT scans at this facility use dose modulation, iterative reconstruction, and/or weight-based dosing when appropriate to reduce radiation dose to as low as reasonably achievable. Dictated by Bryce Hill MD @ 04/15/2025 4:07:11 PM (Electronically Signed)
== END 2025-04-15 07:54 | disposition home or self-care (01) ==
LOC: CT 07:53
PROVIDERS: PCP Family Medicine; Visit Provider Otolaryngology
DX: J32.9 Chronic sinusitis, unspecified (principal); J33.8 Other polyp of sinus; J34.2 Deviated nasal septum; J32.0 Chronic maxillary sinusitis
CPT/HCPCS: 70486

== ENCOUNTER 2025-07-30 07:30 | Outpatient (CLI) | payer MEDICAID, SELFPAY | END 2025-07-30 07:31 | disposition home or self-care (01) | LOC: NFLDREF 07-31 04:00 | PROVIDERS: PCP Family Medicine; Referring Provider Family Medicine; Visit Provider Family Medicine | DX: E55.9 Vitamin D deficiency, unspecified (principal); E03.9 Hypothyroidism, unspecified; R42 Dizziness and giddiness; E11.40 Type 2 diabetes mellitus with diabetic neuropathy, unspecified; Z79.4 Long term (current) use of insulin | CPT/HCPCS: 80053; 80061; 82043; 82306; 82570; 82607; 84443 ==

== ENCOUNTER 2025-08-26 07:30 | Outpatient (RCR) | payer MEDICAID, SELFPAY ==
--- NOTE | 2025-01-15 16:41 | OT.OPOE ---
OT Outpatient Ortho Eval OT Outpatient Ortho Eval* Start: 01/15/25 08:53 Freq: Status: Active Protocol: Document 01/15/25 08:54 AMB (Rec: 01/15/25 16:37 AMB [id number]) E-signed By Tory Kumar, OTR/L, CLT, FACILITIES PAINTER OT OP Ortho Eval Details Complexity Complexity High Insurance Information Insurance Information Medicaid,[employer] Insurance Information Comments Recert due 04/15/25 Outpatient History/Precautions Current Condition/Medical Diagnosis Referring Provider Dr Heaton Medical Diagnoses M72.0 Dupuytren's LUE M65.352 TF LUE SF M65.342 TF LUE RF M65.332 TF LUE MF G56.03 CTS BUE Treatment Diagnosis M72.0 Dupuytren's LUE M65.352 TF LUE SF M65.342 TF LUE RF M65.332 TF LUE MF G56.03 CTS BUE M79.642 Pain in left hand R53.1 Weakness left hand Date of Onset Chronic Other Conditions PMH (copied from medical chart ): Active Problems (Updated 01/08 @ 08:50 by Vilma Lloyd) Pericarditis (Acute) I31.9 - Disease of pericardium , unspecified (ICD-10) Atypical chest pain (Acute) R07.89 - Other chest pain (ICD -10) GERD (gastroesophageal reflux disease) (Acute) K21.9 - Gastro-esophageal reflux disease without esophagitis (ICD-10) Dupuytren contracture of right hand (Acute) M72.0 - Palmar fascial fibromatosis [Dupuytren] (ICD- 10) Dupuytren contracture of left hand (Acute) M72.0 - Palmar fascial fibromatosis [Dupuytren] (ICD- 10) Trigger finger, right ring finger (Acute) M65.341 - Trigger finger, right ring finger (ICD-10) Trigger finger, right middle finger (Acute) M65.331 - Trigger finger, right middle finger (ICD-10) Trigger finger, right index finger (Acute) M65.321 - Trigger finger, right index finger (ICD-10) Trigger finger, left little finger (Acute) M65.352 - Trigger finger, left little finger (ICD-10) Trigger finger, left ring finger (Acute) M65.342 - Trigger finger, left ring finger (ICD-10) Trigger finger, left middle finger (Acute) M65.332 - Trigger finger, left middle finger (ICD-10) Bilateral carpal tunnel syndrome (Acute) G56.03 - Carpal tunnel syndrome, bilateral upper limbs (ICD-10) Piriformis syndrome of right side (Acute) G57.01 - Lesion of sciatic nerve, right lower limb (ICD- 10) Hypothyroidism (Acute) E03.9 - Hypothyroidism, unspecified (ICD-10) Contact dermatitis (Acute) L25.9 - Unspecified contact dermatitis, unspecified cause (ICD-10) Vulvar intraepithelial neoplasia (RICARDO) grade 1 (Acute ) N90.0 - Mild vulvar dysplasia (ICD-10) Condyloma acuminata (Acute) A63.0 - Anogenital (venereal) warts (ICD-10) Genital warts (Acute) suspecte A63.0 - Anogenital (venereal) warts (ICD-10) Hot flashes (Acute) R23.2 - Flushing (ICD-10) Postcoital bleeding (Acute) N93.0 - Postcoital and contact bleeding (ICD-10) Type 2 diabetes mellitus, with long-term current use of insulin (Acute) E11.9 - Type 2 diabetes mellitus without complications (ICD-10) Z79.4 - correction (current) use of insulin (ICD-10) Mixed hyperlipidemia (Acute) E78.2 - Mixed hyperlipidemia ( ICD-10) Primary hypertension (Acute) I10 - Essential (primary) hypertension (ICD-10) Vitamin D deficiency (Acute) E55.9 - Vitamin D deficiency, unspecified (ICD-10) Postmenopausal atrophic vaginitis (Acute) N95.2 - Postmenopausal atrophic vaginitis (ICD-10) Amaurosis fugax of right eye ( Acute) G45.3 - Amaurosis fugax (ICD- 10) Meniere's disease (Acute) H81.09 - Meniere's disease, unspecified ear (ICD-10) Anxiety and depression (Acute) F41.9 - Anxiety disorder, unspecified (ICD-10) F32.A - Depression, unspecified (ICD-10) Diabetic neuropathy (Acute) E11.40 - Type 2 diabetes mellitus with diabetic neuropathy, unspecified (ICD- 10) Medical History (Reviewed 07/25 @ 08:43 by Michelle Kolb ~ LAT ATC) Type 2 diabetes mellitus, with long-term current use of insulin E11.9 - Type 2 diabetes mellitus without complications (ICD-10) Z79.4 - correction (current) use of insulin (ICD-10) Mixed hyperlipidemia E78.2 - Mixed hyperlipidemia ( ICD-10) Primary hypertension I10 - Essential (primary) hypertension (ICD-10) Anxiety and depression F41.9 - Anxiety disorder, unspecified (ICD-10) F32.A - Depression, unspecified (ICD-10) Vitamin D deficiency E55.9 - Vitamin D deficiency, unspecified (ICD-10) Postmenopausal atrophic vaginitis N95.2 - Postmenopausal atrophic vaginitis (ICD-10) Meniere's disease H81.09 - Meniere's disease, unspecified ear (ICD-10) 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 (11/23/12) M51.26 - Other intervertebral disc displacement, lumbar region (ICD-10) Diabetic neuropathy E11.40 - Type 2 diabetes mellitus with diabetic neuropathy, unspecified (ICD- 10) Clostridioides difficile diarrhea A04.72 - Enterocolitis due to Clostridium difficile, not specified as recurrent (ICD-10 ) Amaurosis fugax of right eye G45.3 - Amaurosis fugax (ICD- 10) Adenomatous polyp of colon D12.6 - Benign neoplasm of colon, unspecified (ICD-10) Surgical History (Reviewed 07/25 @ 08:43 by Michelle Kolb ~ LAT ATC) History of thyroidectomy E89.0 - Postprocedural hypothyroidism (ICD-10) History of total hysterectomy with bilateral salpingo- oophorectomy (BSO) (2011) Z90.710 - Acquired absence of both cervix and uterus (ICD-10 ) Z90.722 - Acquired absence of ovaries, bilateral (ICD-10) Z90.79 - Acquired absence of other genital organ(s) (ICD-10 ) History of third molar tooth extraction K08.409 - Partial loss of teeth, unspecified cause, unspecified class (ICD-10) History of bilateral breast reduction surgery Z98.890 - Other specified postprocedural states (ICD-10) Medical/Functional History Medical History Reviewed Yes Social History 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 Pt states she started noticing pain and clicking / locking in her LUE hand / MF, RF, and SF last fall. Pt was seen in orthopedics and diagnosed with CTS in both hands, Dupuytren' s in her left hand and TF of her left MF, RF, and SF. She did have an injection in her hand (MF) in October which helped some for a little while . Pt states she is currently really struggling to sleep due to numbness in her left hand, she has been using a splint which does seem to help a little. Pt also has an Oval 8 splint that she uses on her LUE MF to keep it from locking , this has been helpful., would like one for the RF as well. Goniometric Comments Goniometric Comments Goniometric Comments 01/15/25 Pt demonstrates AROM WNL throughout BUE with the exception of her LUE wrist and hand which are as follows: AROM of the LUE wrist: flex/ext: 50, 45 UD/RD: 30,30 AROM of the LUE hand: Composite finger flexion: -4cm from DPC measured at the tip of MF Opposition: Base of 5th digit Hand Pinch/Railroad Dining Car Steward/Stewardess Strength Hand Pinch/Railroad Dining Car Steward/Stewardess Strength Hand Pinch/Railroad Dining Car Steward/Stewardess Strength Left Hand,Right Hand Left Hand Railroad Dining Car Steward/Stewardess Strength Position 1 in Elbow 10 Flexion (lbs) Lateral Pinch Strength (lbs) 8 Three Point Pinch (lbs) 5 Right Hand Railroad Dining Car Steward/Stewardess Strength Position 1 in Elbow 42 Flexion (lbs) Lateral Pinch Strength (lbs) 13 Three Point Pinch (lbs) 11 OT Objective Data Hand Hand Dominance Right Skin/Wounds/Edema Comments 01/15/25 Mottled skin noted in volar hand and fingers of the LUE. Circumferential measurements of the LUE palm measured at the MP heads = 18. 9cm, RUE is 18.8cm. Circumferential measurements of the RUE P1 of MF is 6.4cm vs 6.9cm on the LUE. Sensation Sensation Assessment Summary Comments 01/15/25 Pt describes numbness throughout the LUE hand and fingers, especially thumb, IF, MF, and RF. Upper Extremity Special Tests Upper Extremity Special Tests Comments Comments 01/15/25 Pt has (+) Durkan's in BUE, negative Phalen's, mild (+) Tinnel's in the LUE, (-) in the RUE. Pt is very ttp over the A1 pulleys of the LUE MF, RF, and SF. OT Problems Problems Problems Decreased Strength,Decreased Range of Motion,Decreased Dexterity,Pain,Decreased Coordination,Sensory Sensitivity,Lifting,Gripping, Pinching Other Problems Writing,Opening Containers, Dressing,Computer,Fasteners, Sleeping Assessment Assessment Assessment Pt is a very pleasant 59yo referred to OT to address LUE hand pain / swelling. Provocative testing and observations support diagnosis ' of LUE TF of MF, RF, and SM, Dupuytren's tenosynovitis of the LUE, and CTS of BUE L>R. There has also been concerns for CRPS. Pt is having difficulty with writing, typing, holding utensils, opening containers, etc due to significant pain, swelling, weakness and limited AROM of the LUE hand / fingers / thumb . Pt will benefit from skilled OT intervention to address deficits and restore full, pain-free use of her ECTOR. Occupational Therapy Treatment Plan - OP Potential Rehabilitation Potential Good Goals Goals 1. Pt will be independent and compliant with HEP in order to resume full, pain-free use of the involved UE. 3 weeks 2. Pt will demonstrate full, pain-free AROM of the involved UE in order to improve ability to grasp and hold. 6 weeks 3. Pt will verbalize the ability to sleep throughout the night without waking up due to pain and paresthesia in the LUE for at least 5 consecutive nights. 7 weeks 3. Pt will demonstrate pain- free director acute and pinch strength comparable to the uninvolved side in order to improve functional grasp, hold, reach, and lifting ability needed to complete self-care, leisure tasks, and work activities. 8 weeks. Target Date 04/15/25 Treatment Plan Treatment Plan Evaluation,Edema Control, Iontophoresis with Dexamethasone Sodium Phosphate 1 mL (4mg per mL),Joint Mobilization,Manual Therapy, Splinting,Ultrasound, Therapeutic Exercise, Therapeutic Activities,Self Care/Home Management,Education Expected Frequency 1-2x Week Expected Duration 8-10 Weeks Home Program Home Program Home Program Initiated Home Program Specifics Provided training and practice in HEP for differential tendon glides. Following demo, pt is able to complete exs with minimal cues. Pt was given written instructions for use at home as well. Pt was also provided with a compression glove to wear prn. Certification Certification Statement I Certify That: Therapy Services Provided, Therapy Plan Established, Therapy Plan Reviewed Certification Information Clinic ID # [id number] Initial Certification Date 01/15/25 Recertification Due Date 04/15/25 Provider Signature Required Yes Provider Signature Shows Agreement With POC & Medical Necessity Physician NPI Number Write NPI# Here Physician Comment/Change Comment or Changes Physician Signature & Date Requested Please Sign/Date Here
--- NOTE | 2025-07-08 17:04 | OT.OPODN ---
OT Outpatient Ortho Daily Note OT Outpatient Ortho Daily Note* Start: 01/15/25 08:53 Freq: Status: Active Protocol: Document 07/08/25 12:11 AMB (Rec: 07/08/25 17:03 AMB [id number]) E-signed By Tory Kumar, OTR/L, CLT, COMPUTED TOMOGRAPHY TECHNOLOGIST Type of Note Type of Note Type of Note Daily Note,Recert/Progress Note Visit Number [id number] Comments 07/08/25 10th visit PN and [facility] SOC: 01/15/25 Insurance Information Insurance Medicaid,UC[employer] Information Insurance Recert due 07/09/25 Information Comments Outpatient History/Precautions Current Condition/Medical Diagnosis Referring Provider Dr Heaton Medical Diagnoses M72.0 Dupuytren's LUE M65.352 TF LUE SF M65.342 TF LUE RF M65.332 TF LUE MF G56.03 CTS BUE Treatment Diagnosis M72.0 Dupuytren's LUE M65.352 TF LUE SF M65.342 TF LUE RF M65.332 TF LUE MF G56.03 CTS BUE M79.642 Pain in left hand R53.1 Weakness left hand Date of Onset Chronic Other Conditions PMH (copied from medical chart): Active Problems (Updated 01/08/25 @ 08:50 by Vilma Lloyd) Pericarditis (Acute) I31.9 - Disease of pericardium, unspecified (ICD-10) Atypical chest pain (Acute) R07.89 - Other chest pain (ICD-10) GERD (gastroesophageal reflux disease) (Acute) K21.9 - Gastro-esophageal reflux disease without esophagitis (ICD-10) Dupuytren contracture of right hand (Acute) M72.0 - Palmar fascial fibromatosis [Dupuytren] (ICD-10 ) Dupuytren contracture of left hand (Acute) M72.0 - Palmar fascial fibromatosis [Dupuytren] (ICD-10 ) Trigger finger, right ring finger (Acute) M65.341 - Trigger finger, right ring finger (ICD-10) Trigger finger, right middle finger (Acute) M65.331 - Trigger finger, right middle finger (ICD-10) Trigger finger, right index finger (Acute) M65.321 - Trigger finger, right index finger (ICD-10) Trigger finger, left little finger (Acute) M65.352 - Trigger finger, left little finger (ICD-10) Trigger finger, left ring finger (Acute) M65.342 - Trigger finger, left ring finger (ICD-10) Trigger finger, left middle finger (Acute) M65.332 - Trigger finger, left middle finger (ICD-10) Bilateral carpal tunnel syndrome (Acute) G56.03 - Carpal tunnel syndrome, bilateral upper limbs (ICD-10) Piriformis syndrome of right side (Acute) G57.01 - Lesion of sciatic nerve, right lower limb (ICD -10) Hypothyroidism (Acute) E03.9 - Hypothyroidism, unspecified (ICD-10) Contact dermatitis (Acute) L25.9 - Unspecified contact dermatitis, unspecified cause (ICD-10) Vulvar intraepithelial neoplasia (RICARDO) grade 1 (Acute) N90.0 - Mild vulvar dysplasia (ICD-10) Condyloma acuminata (Acute) A63.0 - Anogenital (venereal) warts (ICD-10) Genital warts (Acute) suspecte A63.0 - Anogenital (venereal) warts (ICD-10) Hot flashes (Acute) R23.2 - Flushing (ICD-10) Postcoital bleeding (Acute) N93.0 - Postcoital and contact bleeding (ICD-10) Type 2 diabetes mellitus, with long-term current use of insulin (Acute) E11.9 - Type 2 diabetes mellitus without complications (ICD-10) Z79.4 - icer machine (current) use of insulin (ICD-10) Mixed hyperlipidemia (Acute) E78.2 - Mixed hyperlipidemia (ICD-10) Primary hypertension (Acute) I10 - Essential (primary) hypertension (ICD-10) Vitamin D deficiency (Acute) E55.9 - Vitamin D deficiency, unspecified (ICD-10) Postmenopausal atrophic vaginitis (Acute) N95.2 - Postmenopausal atrophic vaginitis (ICD-10) Amaurosis fugax of right eye (Acute) G45.3 - Amaurosis fugax (ICD-10) Meniere's disease (Acute) H81.09 - Meniere's disease, unspecified ear (ICD-10) Anxiety and depression (Acute) F41.9 - Anxiety disorder, unspecified (ICD-10) F32.A - Depression, unspecified (ICD-10) Diabetic neuropathy (Acute) E11.40 - Type 2 diabetes mellitus with diabetic neuropathy, unspecified (ICD-10) Medical History Type 2 diabetes mellitus, with long-term current use of insulin E11.9 - Type 2 diabetes mellitus without complications (ICD-10) Z79.4 - shelter (current) use of insulin (ICD-10) Mixed hyperlipidemia E78.2 - Mixed hyperlipidemia (ICD-10) Primary hypertension I10 - Essential (primary) hypertension (ICD-10) Anxiety and depression F41.9 - Anxiety disorder, unspecified (ICD-10) F32.A - Depression, unspecified (ICD-10) Vitamin D deficiency E55.9 - Vitamin D deficiency, unspecified (ICD-10) Postmenopausal atrophic vaginitis N95.2 - Postmenopausal atrophic vaginitis (ICD-10) Meniere's disease H81.09 - Meniere's disease, unspecified ear (ICD-10) 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 (11/23/12) M51.26 - Other intervertebral disc displacement, lumbar region (ICD-10) Diabetic neuropathy E11.40 - Type 2 diabetes mellitus with diabetic neuropathy, unspecified (ICD-10) Clostridioides difficile diarrhea A04.72 - Enterocolitis due to Clostridium difficile, not specified as recurrent (ICD-10) Amaurosis fugax of right eye G45.3 - Amaurosis fugax (ICD-10) Adenomatous polyp of colon D12.6 - Benign neoplasm of colon, unspecified (ICD-10) Surgical History History of thyroidectomy E89.0 - Postprocedural hypothyroidism (ICD-10) History of total hysterectomy with bilateral salpingo- oophorectomy (BSO) (2011) Z90.710 - Acquired absence of both cervix and uterus ( ICD-10) Z90.722 - Acquired absence of ovaries, bilateral (ICD- 10) Z90.79 - Acquired absence of other genital organ(s) ( ICD-10) History of third molar tooth extraction K08.409 - Partial loss of teeth, unspecified cause, unspecified class (ICD-10) History of bilateral breast reduction surgery Z98.890 - Other specified postprocedural states (ICD-10 ) Medical/Functional History Medical History Yes Reviewed Social History 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 Regarding her hands, right hand is doing good. LUE hand is better, but now having pain on the ulnar side of the hand, also noticing the Dupuytren's nodules seem to be surfacing more and causing pain and stiffness in the pinky and RF more so now, she is also noticing clicking in the SF RF. Paresthesia from median nerve irritation has resolved but still having some burning in the base of hand and distal wrist, but no numbness in fingers and thumb. Pt has not been having any thumb or wrist pain into the APL/EPB of left hand, that just seemed to go away. OT OP Daily Ortho Note/Assessment Therapeutic Exercise Therapeutic Exercise 11 Minutes (minutes) Therapeutic Exercise Pt completes hand strengthening exs to improve Comments functional manager materials management and pinch strength. Exercises included : resisted finger/thumb ext/abd with yellow band, putty strengthening, upgraded to blue (TP for manager materials management, continue with green TP for pinch and manager materials management) and PROM with stretch of LUE hand, all joints of all fingers and thumb into composite flexion. Pt completed 10 reps of each exercise. Manual Therapy Manual Therapy 19 Minutes (minutes) Manual Therapy Provided STM to LUE hand/wrist with focus on Comments decongestive tissue mobilization to decrease swelling and improve ROM. Utilized Graston tool for deep scar tissue mobilization into the left palm working specifically on Dupuytren's nodules / cords with intent to soften tissue and mobilize / reduce adhesions. Ultrasound Ultrasound Minutes ( 10 minutes) Ultrasound Location LUE volar palm/finger for anti-inflammatory and & Joint Position circulatory benefit. Ultrasound Frequency 1 MHz Continuous & Mode Intensity (w/cm2) 1.5 Total Occupational Therapy Time Occupational Therapy 40 Minutes Home Program Home Program Home Program Revised,Compliant Home Program 07/08/25 Upgraded HEP resisted manager materials management to blue putty and Specifics pinch to green putty. 02/19/25 Added warms water soaks, simultaneous BUE composite fisting, and place and hold for composite fist. 02/14/24 Added manager materials management and in hand manipulation and palm rolls with extra light putty. 01/29/25 Added self MT/STM with rubber ball. 01/15/25 Provided training and practice in HEP for differential tendon glides. Following demo, pt is able to complete exs with minimal cues. Pt was given written instructions for use at home as well. Pt was also provided with a compression glove to wear prn. Goniometric Comments Goniometric Comments Goniometric Comments 07/08/25 Pt demonstrates AROM WNL throughout BUE with the exception of her LUE wrist and hand which are as follows: AROM of the LUE wrist: flex/ext: 75/75 UD/RD: 40/30 AROM of the LUE hand: Composite finger flexion: Full composite fist from tip of MF to DPC. Opposition: Full Hand Pinch/Engineering Surveyor Strength Hand Pinch/Engineering Surveyor Strength Hand Pinch/Engineering Surveyor Left Hand,Right Hand Strength Left Hand Engineering Surveyor Strength 26 Position 1 in Elbow Flexion (lbs) Lateral Pinch 11 Strength (lbs) Three Point Pinch ( 10 lbs) Right Hand Engineering Surveyor Strength 42 Position 1 in Elbow Flexion (lbs) Lateral Pinch 13 Strength (lbs) Three Point Pinch ( 11 lbs) Comments Comments Strength measured 07/08/25 OT Objective Data Hand Hand Dominance Right Skin/Wounds/Edema Comments 07/08/25 Visible swelling has resolved in BUE, coloration of BUE is now normal. 03/19/25 Significant improvement noted in coloration of LUE hand, hand is still pale in comparison to RUE, but no longer mottled. 01/15/25 Mottled skin noted in volar hand and fingers of the LUE. Circumferential measurements of the LUE palm measured at the MP heads = 18.9cm, RUE is 18.8cm. Circumferential measurements of the RUE P1 of MF is 6. 4cm vs 6.9cm on the LUE. Sensation Sensation Assessment 07/08/25 Pt denies any paresthesia in her hands, feels Summary Comments mild tingling in the base of her hand and distal wrist. 06/16/25 Denies any paresthesia today. 03/19/25 Intermittent tingling now, no longer constantly numb 01/15/25 Pt describes numbness throughout the LUE hand and fingers, especially thumb, IF, MF, and RF. Upper Extremity Special Tests Upper Extremity Special Tests Comments Comments 07/08/25 (-) Durkan's and Phalen's in BUE. 03/19/25 (-) Durkan's in RUE, mild (+) in LUE. 01/15/25 Pt has (+) Durkan's in BUE, negative Phalen's, mild (+) Tinnel's in the LUE, (-) in the RUE. Pt is very ttp over the A1 pulleys of the LUE MF, RF, and SF. OT Problems Problems Problems Decreased Strength,Decreased Range of Motion,Decreased Dexterity,Pain,Decreased Coordination,Sensory Sensitivity,Lifting,Gripping,Pinching Other Problems Writing,Opening Containers,Dressing,Computer,Fasteners, Sleeping Patient Potential Good Assessment Assessment Assessment Median nerve irritation seems to have resolved, however , pt still has very mild tingling in the base of her hand and distal wrist but CTS screenings are (-) today, no paresthesia in her fingers. Pt now demonstrates full AROM without pain in BUE hands. Pt does have residual hand weakness in her LUE. She will continue to work on this on her own for 3-4 weeks and return for a re-check. Pt's Dupuytren's nodules seem to be more problematic and are affecting her SF and RF of her LUE per pt. Pt will continue to work on stretching. Will plan to re-assess and likely discharge if still doing well in 3-4 weeks. Occupational Therapy Treatment Plan - OP Potential Rehabilitation Good Potential Goals Goals 07/08/25 Pt showing nice gains in ROM and strength, progressing towards these goals, also compliance noted with HEP, all goals remain appropriate. 1. Pt will be independent and compliant with HEP in order to resume full, pain-free use of the involved UE. This goal has been met, pt verbalizes compliance with HEP, feels the benefit. 2. Pt will demonstrate full, pain-free AROM of the involved UE in order to improve ability to grasp and hold. 07/08/25 This goal has been met. Pt demonstrates full, pain-free AROM in BUE hands. 3. Pt will verbalize the ability to sleep throughout the night without waking up due to pain and paresthesia in the LUE for at least 5 consecutive nights. 07/08/25 This goal has been met. 3. Pt will demonstrate pain-free manager materials management and pinch strength comparable to the uninvolved side in order to improve functional grasp, hold, reach, and lifting ability needed to complete self-care, leisure tasks, and work activities. 07/08/25 Pt had made significant progress towards this goal, she has some residual weakness in her left hand. Pt's strengthening program was progressed during today's session, she will work on this on her own for the next 3-4 weeks and return for re-assessment with anticipated discharge. Target Date 10/06/24 Treatment Plan Treatment Plan Evaluation,Edema Control,Iontophoresis with Dexamethasone Sodium Phosphate 1 mL (4mg per mL),Joint Mobilization,Manual Therapy,Splinting,Ultrasound, Therapeutic Exercise,Therapeutic Activities,Self Care/ Home Management,Education Expected Frequency 1x Week Expected Duration 8-10 Weeks Occupational Therapy Billing Units Treatment Minutes Timed Treatment 40 Minutes Total Treatment 40 Minutes Billing Units Manual Therapy 1 Therapeutic Exercise 1 Ultrasound 1 Certification Statement Certification Statement I Certify That: Therapy Services Provided,Therapy Plan Established, Therapy Plan Reviewed Recertification Information Recertification Information Initial 01/15/25 Certification Date Recertification 07/08/25 Start Date Recertification Due 10/06/25 Date Reasons to Continue Pt has been seen for a total of 20 visits since her Skilled Therapy initial evaluation on 01/15/25. Pt has missed several visits due to other illness as well as recent sinus surgery. Pt has made significant gains in BUE hand ROM and strength which have allowed for increased ability to use her hands for functional tasks at home as well as the fact that she will be returning to the workforce next week, something she does not feel she could have done prior. Pt will continue to benefit from skilled OT intervention to address final stages of recovery and strength. She remains quite motivated and wishes to continue. Pt would like to improve her hand strength in the LUE as she still notices difficulty with food prep , cleaning activities and is concerned about how she will do returning to work. Rehabilitation Good Potential Click To Default ' Per treatment plan Per treatment plan' Continued Plan of Per treatment plan Care and Interventions Provider Signature Yes Required Provider Signature POC & Medical Necessity Shows Agreement With Physician NPI Number Write NPI# Here Physician Comment/ Comment or Changes Change Physician Signature Please Sign/Date Here & Date Requested
== END 2025-08-26 17:03 | disposition home or self-care (01) ==
PROVIDERS: PCP Family Medicine; Visit Provider Orthopaedic Surgery Sports Medicine
DX: M72.0 Palmar fascial fibromatosis [Dupuytren] (principal); M65.352 Trigger finger, left little finger; M65.342 Trigger finger, left ring finger; M65.332 Trigger finger, left middle finger; G56.03 Carpal tunnel syndrome, bilateral upper limbs; Z51.89 Encounter for other specified aftercare
CPT/HCPCS: 97035; 97110; 97140; 97167; 97535; X5282